=== PATIENT | female | born 1980 | race Caucasian/White ===

== ENCOUNTER 2023-06-06 13:17 | Outpatient (OUT) | payer OTHER, SELFPAY ==
--- NOTE | 2023-06-06 13:18 | MM_ITS ---
Patient: MEGGAN GUERRA Exam Date: 06/06/2023 : 1980 Gender:F Ordering : MRS. JUNIOR ZAMBRANO . Admission #: [id number] Family : DELIA DENG Order #: [id number] CLICK HERE TO VIEW EXAM RADIOLOGY REPORT PROCEDURE: MM TOMOSYNTHESIS SCREENING BI COMPARISON: [facility] MAMM SCREEN 3D LESLIE CAD, 05/25/2022. MG MAMM SCREEN LESLIE W CAD, 11/01/2020. MG MAMM LESLIE DIAG W CAD DIG, 04/22/2015. MAMMO LESLIE SCREEN, 06/18/2007. INDICATIONS: Screening mammogram Z01.419, Z12.31, Z78.9, Z68.41 Calculator Name NCI Breast Cancer Risk Assessment Tool 5 Year Breast Cancer Risk 1.30% Lifetime Breast Cancer Risk 14.40% Personal Breast Cancer No Personal Ovarian Cancer No Treatments None Family Cancers Aunt-maternal with breast cancer at age ~53; Grandmother-paternal with colon cancer at age ~65; Grandfather-paternal with prostate cancer at age ~70. LOCATION: [facility] BREAST COMPOSITION: Extremely dense, which lowers the sensitivity of mammography. FINDINGS: DIAGNOSTIC CATEGORY 2--BENIGN FINDING: RIGHT BREAST: No significant suspicious finding. Stable small benign nodule posterior lower-outer quadrant. No significant change has occurred. LEFT BREAST: No significant suspicious finding. No significant change has occurred. RECOMMENDATIONS: ROUTINE MAMMOGRAM AND CLINICAL EVALUATION IN 12 MONTHS. PLEASE NOTE: A NORMAL MAMMOGRAM DOES NOT EXCLUDE THE POSSIBILITY OF BREAST CANCER. A CLINICALLY SUSPICIOUS PALPABLE LUMP SHOULD BE BIOPSIED. Dictated by: Andres Wellington M.D. on 06/06/2023 at 16:37 Approved by: Andres Wellington M.D. on 06/06/2023 at 16:44
== END 2023-06-06 13:18 | disposition home or self-care (01) ==
LOC: MAMMO 13:17
PROVIDERS: PCP Family Medicine; Visit Provider Nurse Practitioner
DX: Z12.31 Encounter for screening mammogram for malignant neoplasm of breast (principal); Z80.3 Family history of malignant neoplasm of breast; Z80.0 Family history of malignant neoplasm of digestive organs; Z80.42 Family history of malignant neoplasm of prostate
CPT/HCPCS: 77063; 77067

== ENCOUNTER 2024-03-26 14:55 | Outpatient (OUT) | payer OTHER, SELFPAY ==
--- NOTE | 2024-03-26 | XR_ITS ---
The [address] [address] Patient Name: MEGGAN GUERRA MRN: [id number] date: 1980 Sex: F Assigned Patient Location: Current Patient Location: Accession/Order Number: [id number] Exam Date: 03/26/2024 15:01 Report Date: 03/26/2024 15:43 At the request of: EDITH SAUNDERS Procedure: XR foot LESLIE min 3V EXAMINATION: XR ankle LESLIE min 3V, XR foot LESLIE min 3V HISTORY: BILATERAL ANKLE PAIN bilateral foot pain COMPARISON: No relevant comparison available. FINDINGS: RIGHT FINDINGS: BONES: No acute fracture or dislocation. No significant joint space narrowing. Mild enthesopathic spurring at the Achilles insertion of the calcaneus SOFT TISSUES: Negative. No visible soft tissue swelling. OTHER: Negative. LEFT FINDINGS: BONES: No acute fracture or dislocation. No significant joint space narrowing. Mild enthesopathic spurring at the Achilles insertion of the calcaneus SOFT TISSUES: Negative. No visible soft tissue swelling. OTHER: Negative. XR/XR foot LESLIE min 3V IMPRESSION: RIGHT CONCLUSION: Mild calcaneal enthesopathy LEFT CONCLUSION: Mild calcaneal enthesopathy Electronically authenticated by: DELIA RODRIGUEZ Date: 03/26/2024 15:43
--- NOTE | 2024-03-26 | XR_ITS ---
The [address] [address] Patient Name: MEGGAN GUERRA MRN: [id number] date: 1980 Sex: F Assigned Patient Location: Current Patient Location: Accession/Order Number: [id number] Exam Date: 03/26/2024 15:01 Report Date: 03/26/2024 15:43 At the request of: EDITH SAUNDERS Procedure: XR ankle LESLIE min 3V EXAMINATION: XR ankle LESLIE min 3V, XR foot LESLIE min 3V HISTORY: BILATERAL ANKLE PAIN bilateral foot pain COMPARISON: No relevant comparison available. FINDINGS: RIGHT FINDINGS: BONES: No acute fracture or dislocation. No significant joint space narrowing. Mild enthesopathic spurring at the Achilles insertion of the calcaneus SOFT TISSUES: Negative. No visible soft tissue swelling. OTHER: Negative. LEFT FINDINGS: BONES: No acute fracture or dislocation. No significant joint space narrowing. Mild enthesopathic spurring at the Achilles insertion of the calcaneus SOFT TISSUES: Negative. No visible soft tissue swelling. OTHER: Negative. XR/XR ankle LESLIE min 3V IMPRESSION: RIGHT CONCLUSION: Mild calcaneal enthesopathy LEFT CONCLUSION: Mild calcaneal enthesopathy Electronically authenticated by: DELIA RODRIGUEZ Date: 03/26/2024 15:43
== END 2024-03-26 14:56 | disposition home or self-care (01) ==
LOC: EC 14:55
PROVIDERS: PCP Family Medicine; Visit Provider Physician Assistant
DX: M79.672 Pain in left foot (principal); M79.671 Pain in right foot; M25.571 Pain in right ankle and joints of right foot; M25.572 Pain in left ankle and joints of left foot; M77.31 Calcaneal spur, right foot; M77.32 Calcaneal spur, left foot
CPT/HCPCS: 73610; 73630

== ENCOUNTER 2025-04-13 12:44 | Outpatient (OUT) | payer OTHER, SELFPAY ==
--- OUTSIDE RECORDS SUMMARY | 2025-04-13 13:05 | XMS_ITS | CCD ---
Author Organization [facility] Care Team Providers Care Chinese Instructor Name Role Phone DO Delia Deng Primary Care Provider DO Delia Deng Attending Provider Luciana Carmen Unavailable Delai Deng Unavailable Reji Alcantara Unavailable DO Delia Deng Primary Care Provider DO Delia Deng Attending Provider [phone] KENYA, JUNIOR L Admitting Unavailable KENYA, JUNIOR Calvillo Attending Unavailable SOWMYA, DR LIN Primary Care Unavailable WESTFIELD, DR DELIA Lacy Consulting Unavailable KENYA, JUNIOR L Consulting Unavailable SOWMYA, DR LIN Admitting Unavailable SOWMYA, DR LIN Attending Unavailable SOWMYA, DR LIN Primary Care Unavailable SOWMYA, DR LIN Consulting Unavailable DELIA GALARZA Consulting Unavailable KENYA, JUNIOR L Admitting Unavailable KENYA, JUNIOR Calvillo Attending Unavailable SOWMYA, DR LIN Primary Care Unavailable HANS, DR MARIYA Fierro Consulting Unavailable KENYA, JUNIOR L Consulting Unavailable DO Delia Deng Primary Care Provider DO Delia Deng Attending Provider [phone] Delia Deng DO Primary Care Provider Delia Deng DO Unavailable [phone] DELIA DENG Primary Care Unavailable WAITE, JIHAD Referring Unavailable CHAD, JIHAChavo Referring Unavailable DELIA DENG Primary Care Unavailable CHAD, JIHAD Attending Unavailable DELIA DENG Primary Care Unavailable DO Delia Deng Primary Care Provider DO Delia Deng Attending Provider DO Delia Deng Primary Care Provider DO Delia Deng Attending Provider MD Reji Alcantara Attending Provider [phone] DO Delia Deng Primary Care Provider DO Delia Deng Attending Provider [phone] DO Delia Deng Primary Care Provider DO Delia Deng Attending Provider [phone] DAVID PRYOR Attending Unavailable DO Delia Deng Primary Care Provider [phone] DO Delia Deng Attending Provider [phone] Delia Deng Primary Care Unavailable Sowmya, Delia Admitting Unavailable Sowmya, Delia Attending Unavailable Sowmya, Delia Primary Care Unavailable Sowmya, Delia Admitting Unavailable Sowmya, Delia Attending Unavailable Sowmya, Delia Primary Care Unavailable Reji Alcantara Attending Unavailable Reji Alcantara Admitting Unavailable Girbrigido, Delia Attending Unavailable Sowmya, Delia Primary Care Unavailable Sowmya, Delia Admitting Unavailable Kenya, Junior L Primary Care Physician Kenya, TROUBLE SHOOTER Junior Calvillo Attending Unavailable Kenya, TROUBLE SHOOTER Junior L Attending Unavailable Kenya, TROUBLE SHOOTER Junior L Attending Unavailable Kenya, TROUBLE SHOOTER Junior L Admitting Unavailable Kenya, TROUBLE SHOOTER Junior L Attending Unavailable Kenya, TROUBLE SHOOTER Junior L Attending Unavailable Kenya, TROUBLE SHOOTER Junior L Attending Unavailable Kenya, TROUBLE SHOOTER Junior L Attending Unavailable Allergies Allergy Classification Reported Allergen(s) Allergy Type Date of Onset Reaction(s) Facility (20 sources) Amoxicillin / Clavulanate Drug Allergy rash [place] Other (20 sources) Azithromycin Drug Allergy 11-27-19 24 does not work for her [facility] (20 sources) codiene Propensity to adverse reactions vomiting [place] Other (7 sources) Amoxicillin / Clavulanate Drug Allergy 02-11-20 14 rash [facility] Repository (7 sources) Codeine Drug Allergy 02-11-20 14 vomiting [facility]ository (7 sources) Amoxicillin; Translations: [amoxicillin] Drug Allergy 11-27-19 [facility] (7 sources) Clavulanate; Translations: [clavulanic acid] Drug Allergy 11-27-19 [facility] (1 source) Azithromycin Drug Allergy 05-14-20 [facility] Repository (1 source) Codeine Drug Allergy 05-14-20 [facility] Repository (2 sources) No Known Medication Allergies; Translations: [No Known Medication Allergies] Propensity to adverse reactions (disorder) [facility] Repository Medications Current Medications Medication Drug Class(es) Dates Sig (Normalized) Sig (Original) 0.5 ML semaglutide 0.5 MG/ML Auto-Injector [Wegovy] (1 source) Start: 01-04-2022 Wegovy 0.25 MG/0.5ML 1 injector Subcutaneous Once a week for 30 day(s) BMI 40.42 Jan, Active 0.5 ML semaglutide 1 MG/ML Auto-Injector [Wegovy] (2 sources) inject 0.5 mg by subcutaneous injection every week Wegovy 0.5 MG/0.5ML 0.5 mg Subcutaneous Weekly Active ascorbic acid 250 mg oral tablet (16 sources) Vitamin C Start: 02-17-2024 take 1 tablet by mouth once daily Ascorbic Acid (Vitamin C) 250 mg tablet Active 250 MG PO Daily February 16, 2024 11:00pm Vitamin C Active azelastine hydrochloride 0.137 mg/actuat metered dose nasal spray (7 sources) Histamine-1 Receptor Antagonist Start: 12-07-2024 take 1 spray(s) nasal route twice daily as needed Azelastine 137 mcg (0.1 %) spray,non-aerosol Active 1 SPRAY INTRANASAL Twice daily as needed December 07, 2024 4:57pm administer into each nostril Start: 02-17-2024 End: 12-07-2024 take 1 spray(s) nasal route twice daily Azelastine 137 mcg (0.1 %) aerosol,spray Discontinued 1 SPRAY INTRANASAL Twice daily 90 February 16, 2024 11:00pm December 07, 2024 5:00pm administer into each nostril Start: 02-17-2024 take 1 spray(s) nasa l route twice daily Azelastine Active 1 SPRAY INTRANASAL Twice daily February 17, 2024 12:00am administer into each nostril cholecalciferol 0.05 mg oral capsule (10 sources) Vitamin D Start: 02-17-2024 take 1 capsule by mouth once daily Cholecalciferol (Vitamin D3) 50 mcg (2,000 unit) capsule Active 1 CAP PO Daily February 16, 2024 11:00pm FreeTextSi capsule Orally Once a day; Note: Source Status: Taking; Provider: Maricruz Mendoza ( ) Start: 02-17-2024 take 1 capsule by mo [facility] once daily Cholecalciferol (Vitamin D3) Active 1 CAP PO Daily February 17, 2024 12:00am FreeTextSi capsule Orally Once a day; Note: Source Status: Taking; Provider: Maricruz Mendoza ( ) take 1 capsule by [facility] every twenty-four hours Vitamin D3 50 MCG (2000 UT) 1 capsule Orally Once a day Active docusate sodium 100 mg oral capsule (6 sources) Start: 02-17-2024 take 1 capsule by mouth once daily Docusate Sodium (Dulcolax Stool Softener (Dss)) 100 mg capsule Active 100 MG PO Daily February 16, 2024 11:00pm hydroCHLOROthiazide 25 mg / losartan potassium 100 mg oral tablet (20 sources) Thiazide Diuretic, Angiotensin 2 Receptor Mehrdad Start: 07-16-2024 End: 10-14-2024 Losartan-[place] chlorothiazide 100-25 mg tablet Active 0 .ROUTE .COMPLEX October 14, 2024 7:49am TAKE 1 TABLET DAILY Start: 02-17-2024 End: 07-16-2024 take 1 tablet by mouth once daily Losartan-Hydrochlorothiazide 100-25 mg tablet Discontinued 1 TAB PO Daily February 16, 2024 11:00pm July 16, 2024 7:38am FreeTextSig: TAKE 1 TABLET BY MOUTH EVERY DAY; Note: Source Status: Taking; Refills: 3; Provider: Sowmya Martins Start: 08-15-2022 take 1 tablet by bryant once daily losartan-hydroCHLOROthiazide (HYZAAR) 10 0-25 mg per tablet Take 1 tablet by mouth once daily. 0 12/17/2022 Active Comment on above: Take 1 tablet by bryant th once daily. hydrocortisone acetate 25 mg rectal suppository (11 sources) Corticosteroid Start: 08-31-2024 End: 12-07-2024 Hydrocortisone Acetate (Anusol-Hc) 25 mg suppository Active 25 MG MI Twice daily as needed December 07, 2024 4:58pm unwrap and insert 1 suppository per rectum two times a day Start: 10-30-2022 Anusol-HC 25 M G unwrap and _insert 1 suppository per rectum Rectal bid prn Oct, Active Immune Support (4 sources) Immune Support A ctive Lactobacillus Combination No.4 (Probiotic) 3 billion cell capsule (6 sources) Start: 02-17-2024 take 3 capsules by mouth once daily Lactobacillus Combination No.4 (Probiotic) 3 billion cell capsule Active 3000 MMU CELLS PO Daily February 16, 2024 11:00pm administer with a meal Start: 02-17-2024 take 3 capsules by m [facility] once daily Lactobacillus Combination No.4 (Probiotic) 3 billion cell capsule Active 3000 MMU CELLS PO Daily February 17, 2024 12:00am administer with a meal losartan potassium 50 mg oral tablet (12 sources) Angiotensin 2 Receptor Mehrdad take 2 tablets by mouth every twenty-four hours Losartan Potassium 50 MG 2 tablet Orally Once a day Active Losartan Potassi um 50 MG TAKE 1/2 TABLET BY MOUTH EVERY DAY FOR 30 DAYS for 30 Active take 1 tablet by bryant th every twenty-four hours Losartan Potassium 50 MG 1 tablet Orally Once a day Active Multi For Her (20 sources) Multi For Her Or ally Active Multivitamin (Daily Multi-Vitamin) tablet (6 sources) Start: 02-17-2024 take 1 tablet by mouth once daily Multivitamin (Daily Multi-Vitamin) tablet Active 1 TAB PO Daily February 16, 2024 11:00pm Start: 02-17-2024 take 1 tablet by bryant th once daily Multivitamin (Daily Multi-Vitamin) tablet Active 1 TAB PO Daily February 17, 2024 12:00am [place] 3 (4 sources) [place] 3 Active [place]-3 Fatty Acids (5 sources) Start: 02-17-2024 take 1000 mg by mouth once daily [place]-3 Fatty Acids Active 1000 MG PO Daily February 17, 2024 12:00am [place]-3 Fatty Acids 1,000 mg capsule (1 source) Start: 02-17-2024 take 1 capsule by mouth once daily [place]-3 Fatty Acids 1,000 mg capsule Active 1000 MG PO Daily February 16, 2024 11:00pm Probiotic (20 sources) Probiotic Orally Active psyllium 3400 mg powder for oral suspension (8 sources) Start: 08-31-2024 End: 12-07-2024 Psyllium Husk (Aspartame) (Metamucil Sugar-Free (Aspart)) 3.4 gram/5.8 gram powder Active EACH PO as needed December 07, 2024 4:58pm Metamucil Not-Ta nilsa Metamucil Active rosuvastatin calcium 10 mg oral tablet (20 sources) HMG-CoA Reductase Inhibitor Start: 08-10-2024 End: 08-10-2024 take 1 tablet by mouth once daily Rosuvastatin 10 mg tablet Active 10 MG PO Daily August 10, 2024 11:57am Rosuvastatin Pa cium 10 mg TAKE 1 TABLET DAILY Active Comment on above: Rosuvastatin Calcium 10 mg TAKE 1 TABLET DAILY Active 0.25 mg, 0.5 mg dose 1.5 ml semaglutide 1.34 mg/ml pen injector (1 source) Start: 10-24-2021 Ozempic (0.25 or 0.5 MG/DOSE) 2 MG/1.5ML 0.25 mg for one month and then increase to 0.5 mg dose Subcutaneous weekly for 30 days Oct, Active Semaglutide (4 sources) Start: 05-14-2024 Semaglutide Active SUBCUT May 13, 2024 11:00pm Start: 05-14-2024 Semaglutide Ac tive SUBCUT May 14, 2024 12:00am sertraline 25 mg oral tablet (20 sources) Serotonin Reuptake Inhibitor Start: 05-14-2024 take 4 tablets by mouth once daily Sertraline (Zoloft) 25 mg tablet Active 25 MG PO Daily May 14, 2024 9:58am *in addition to the 100 MG tablets daily Start: 05-14-2024 End: 05-14-2024 take 1 tablet by mouth once daily Sertraline (Zoloft) 25 mg tablet Discontinued 25 MG PO Daily May 13, 2024 11:00pm May 14, 2024 9:59am Start: 02-17-2024 End: 03-05-2024 take 1 tablet by mouth once daily Sertraline 100 mg tablet Discontinued 100 MG PO Daily February 17, 2024 4:17pm March 05, 2024 12:15pm Start: 02-17-2024 End: 02-17-2024 take 1 tablet by mouth once daily Sertraline 25 mg tablet Discontinued 25 MG PO February 16, 2024 11:00pm February 17, 2024 4:16pm TAKE 1 TABLET ONCE DAILY IN ADDITION TO THE 100 MG; Note: Source Status: TakingHoldover supplies while pt waits for mail order to arrive; Provider: Sowmya Martins Start: 11-24-2022 sertraline (ZO LOFT) 100 mg tablet Start: 10-27-2022 sertraline (ZO LOFT) 25 mg tablet Sertraline HCl 2 5 mg TAKE 1 TABLET ONCE DAILY IN ADDITION TO THE 100 MG Holdover supplies while pt waits for mail order to arrive Active Sertraline HCl 1 00 mg TAKE 1 TABLET DAILY IN ADDITION TO THE 25 MG Holdover supplies while pt waits for mail order to arrive Active Sertraline HCl 2 5 mg TAKE 1 TABLET ONCE DAILY IN ADDITION TO THE 100 MG for 90 days Active Sertraline HCl 2 5 mg TAKE 1 TABLET ONCE DAILY IN ADDITION TO THE 100 MG Active Sertraline HCl 1 00 mg TAKE 1 TABLET DAILY IN ADDITION TO THE 25 MG Active Stool Softener (14 sources) Stool Softener A ctive tiZANidine 4 mg oral tablet (20 sources) Central alpha-2 Adrenergic Agonist Start: 02-17-2024 Tizanidine (Zanaflex) 4 mg tablet Active 4 MG PO as needed February 16, 2024 11:00pm FreeTextSi tablet Orally q8-12 hrs prn; Note: Source Status: Takingprn; Refills: 1; Provider: Sowmya Martins Start: 02-16-2020 Zanaflex 4 MG 1 tablet Orally q8-12 hrs prn for 90 days prn Feb, Active Start: 02-16-2020 tiZANidine (ZA NAFLEX) 4 mg tablet Take by mouth. 0 02/16/2020 Active Comment on above: Take by mouth. ubidecarenone 100 mg oral capsule (1 source) Start: 02-03-2025 Coenzyme Q10 (Co Q-10) 100 mg capsule Active 100 MG PO Daily December 07, 2024 12:00am Vitamin D3 (6 sources) Vitamin D3 Activ e Zinc (8 sources) take 1 tablet by mouth once daily Zinc 30 MG 1 tablet Orally Once a day Active Zinc Active zinc gluconate 30 mg oral tablet (8 sources) Start: 02-17-2024 take 1 tablet by mouth once daily Zinc Gluconate 30 mg tablet Active 1 TAB PO Daily February 16, 2024 11:00pm FreeTextSi tablet Orally Once a day; Note: Source Status: Taking; Provider: Maricruz Mendoza ( ) take 1 tablet by bryant th every twenty-four hours Zinc 30 MG 1 tablet Orally Once a day Active Completed/Discontinued Medications Medication Drug Class(es) Dates Sig (Normalized) Sig (Original) ALPRAZolam 0.5 mg oral tablet (20 sources) Benzodiazepine Start: 02-17-2024 End: 05-14-2024 Alprazolam (Xanax) 0.5 mg tablet Discontinued 0.5 MG PO .COMPLEX May 14, 2024 9:55am May 14, 2024 9:56am 0.5 mg orally q8-12 hrs prn Start: 01-26-2016 Xanax 0.5 MG 1 tablet Orally q8-12 hrs prn Jan, Active Start: 01-26-2016 ALPRAZolam (XA NAX) 0.5 mg tablet Take by mouth. 0 01/26/2016 Active ALPRAZolam (XANA X) 0.25 mg tablet Take 0.25 mg by mouth. 0 Active Comment on above: Take 0.25 mg by mout h. Take by mouth. 24 hr buPROPion hydrochloride 150 mg extended release oral tablet (6 sources) Aminoketone Start: 02-17-20 End: 05-14-20 take 1 tablet by mouth once daily in the morning Bupropion Hcl (Wellbutrin Xl) 150 mg tablet extended release 24 hr Discontinued 150 MG PO Every morning 90 February 16, 2024 11:00pm May 14, 2024 9:36am cefdinir 300 mg oral capsule (8 sources) Cephalosporin Antibacterial Start: 05-18-20 End: 08-31-20 take 2 capsules by mouth once daily at mealtime Cefdinir 300 mg capsule Discontinued 600 MG PO Daily 23 08May 18, 2024 3:09pm August 31, 2024 3:43pm take 2 (300 mg) capsules orally qd with food Start: 05-18-2024 End: 08-31-2024 take 2 capsules by mouth once daily at mealtime Cefdinir Discontinued 600 MG PO Daily 23 08May 18, 2024 4:09pm August 31, 2024 4:43pm take 2 (300 mg) capsules orally qd with food Start: 11-18-2023 take 2 capsules by m outh once daily at mealtime Cefdinir 300 MG 2 capsules Orally qd with food for 10 days Nov, Active cholecalciferol, vitamin D3, (VITAMIN D3 ORAL) (1 source) take 1 drop(s) by mouth once daily cholecalciferol, vitamin D3, (VITAMIN D3 ORAL) Take 1 Drop by mouth once daily. 0 Active Comment on above: Take 1 Drop by mouth once daily. fexofenadine hydrochloride 180 mg oral tablet (20 sources) Histamine-1 Receptor Antagonist Start: take 1 tablet by mouth every twenty-four hours Fexofenadine HCl 180 MG 1 tablet as needed Orally Once a day prn Apr, Not-Taking/PRN gabapentin 100 mg oral capsule (20 sources) Anti-epileptic Agent Start: take 1 capsule by mouth every twenty-four hours Gabapentin 100 MG 1 capsule Orally Once a day prn Jul, Not-Taking/PRN Start: 07-14-2018 gabapentin (NE URONTIN) 100 mg capsule Take by mouth q 24 HR. 0 07/14/2018 Active Start: 07-14-2018 take 1 capsule by [facility] every eight hours Gabapentin 100 MG 1 capsule Orally tid for 90 days prn Jul, Active Comment on above: Take by mouth q 24 H R. methylPREDNISolone (20 sources) Corticosteroid Start: SOLU-MEDROL 41 - 125 mg Feb, 125 mg 24 hr phentermine 7.5 mg / topiramate 46 mg extended release oral capsule (20 sources) Sympathomimetic Amine Anorectic Start: End: take 1 capsule by mouth once daily Phentermine-Topira mate (Qsymia) 7.5-46 mg capsule, ER multiphase 24 hr Discontinued 1 CAP PO Daily March 30, 2024 11:00pm May 14, 2024 9:36am Start: 11-27-2023 take 1 capsule by mo uth every twenty-four hours Qsymia 7.5-46 MG 1 capsule Orally Once a day for 30 days Nov, Active Start: 09-25-2023 take 1 capsule by mo uth every twenty-four hours Qsymia 7.5-46 MG 1 capsule Orally Once a day for 30 days Sep, Active Start: 06-20-2023 take 1 capsule by mo uth every twenty-four hours Qsymia 7.5-46 MG 1 capsule Orally Once a day for 30 days Jun, Active Start: 03-25-2023 take 1 capsule by mo uth every twenty-four hours Qsymia 7.5-46 MG 1 capsule Orally Once a day for 30 days March, Active Start: 03-25-2023 take 1 capsule by mo uth every twenty-four hours Qsymia 3.75-23 MG 1 capsule Orally Once a day for 14 days March, Active Start: 09-26-2022 take 1 capsule by mo uth every twenty-four hours Qsymia 11.25-69 MG 1 capsule Orally Once a day for 30 days Sep, Not-Taking Start: 08-14-2022 take 1 capsule by mo uth every twenty-four hours Qsymia 7.5-46 MG 1 capsule Orally Once a day for 30 days Aug, Active Start: 04-05-2022 take 1 capsule by mo uth every twenty-four hours Qsymia 7.5-46 MG 1 capsule Orally Once a day for 30 days Apr, Active Start: 04-05-2022 take 1 capsule by mo uth every twenty-four hours Qsymia 3.75-23 MG 1 capsule Orally Once a day Apr, Active Triamcinolone (20 sources) Corticosteroid Start: 07-21-2012 KENALOG - 10 m g Jul, 1.5 cc Turmeric extract (6 sources) Start: 02-17-2024 End: 12-07-2024 Turmeric 400 mg capsule Discontinued MG PO February 16, 2024 11:00pm December 07, 2024 4:59pm Start: 02-17-2024 Turmeric Activ e MG PO February 17, 2024 12:00am ubidecarenone 20 mg/ml / vitamin e 0.2 unt/ml oral solution (1 source) take 100 mg by mouth once daily coenzyme Q-10 double strength 100 mg/5 ml oral liquid Take 100 mg by mouth once daily. 0 Active Comment on above: Take 100 mg by mouth once daily. Zinc Sulfate (1 source) take 15 mg by mouth once daily zinc sulfate (ZINC-15 ORAL) Take 15 mg by mouth once daily. 0 Active Comment on above: Take 15 mg by mouth once daily. Problems Active Problems Problem Classification Problem Date Documented Da te Episodic/Chronic Abdominal pain (4 sources) Pelvic and perineal pain; Translations: [PELVIC AND PERINEAL PAIN] Onset: 10-31-2022 Episodic Anxiety disorders (20 sources) Anxiety; Translations: [Anxiety disorder, unspecified] Onset: 09-18-2021 Resolved: 07-16-2022 Chronic Diabetes mellitus without complication (20 sources) Impaired fasting glycemia; Translations: [Impaired fasting glucose] Onset: 10-24-2021 Resolved: 06-20-2022 Episodic Disorders of lipid metabolism (20 sources) Hyperlipidemia; Translations: [Hyperlipidemia, unspecified] Onset: 09-18-2021 Resolved: 07-16-2022 Chronic Essential hypertension (20 sources) Hypertensive disorder; Translations: [Essential (primary) hypertension] Onset: 04-05-2022 Resolved: 06-20-2022 Chronic Hemorrhoids (13 sources) Unspecified hemorrhoids; Translations: [Hemorrhoids] Episodic Menstrual disorders (20 sources) Menorrhagia; Translations: [Excessive and frequent menstruation with regular cycle] Chronic Other aftercare (7 sources) Other usp (current) drug therapy; Translations: [Long-term (current) use of other medications] Onset: 04-09-2022 Resolved: 04-09-2022 Episodic Other aftercare (6 sources) Long-term current use of drug therapy; Translations: [Other intermediate teacher (current) drug therapy] 02-17-2024 Episodic Other circulatory disease (20 sources) Elevated blood-pressure reading without diagnosis of hypertension; Translations: [Elevated blood-pressure reading, without diagnosis of hypertension] Episodic Other gastrointestinal disorders (6 sources) Constipation; Translations: [Constipation, unspecified] 02-17-2024 Episodic Other non-traumatic joint disorders (1 source) Pain in wrist 02-15-2025 Episodic Other nutritional; endocrine; and metabolic disorders (20 sources) Metabolic syndrome X; Translations: [Metabolic syndrome] Chronic Other nutritional; endocrine; and metabolic disorders (20 sources) Obese class II; Translations: [Body mass index (BMI) 39.0-39.9, adult] Chronic Other nutritional; endocrine; and metabolic disorders (20 sources) Body mass index 40+ - severely obese; Translations: [Body mass index (BMI) 40.0-44.9, adult] Chronic Other nutritional; endocrine; and metabolic disorders (20 sources) Obesity; Translations: [Obesity, unspecified] 02-17-2024 Chronic Other nutritional; endocrine; and metabolic disorders (9 sources) Obesity, unspecified; Translations: [Obesity, unspecified] Onset: 10-04-2021 Resolved: 04-26-2022 Chronic Other nutritional; endocrine; and metabolic disorders (2 sources) Body mass index (BMI) 39.0-39.9, adult Onset: 10-04-2021 Resolved: 04-26-2022 Chronic Other nutritional; endocrine; and metabolic disorders (12 sources) Body mass index (BMI) 40.0-44.9, adult Onset: 10-24-2021 Resolved: 06-20-2022 Chronic Other nutritional; endocrine; and metabolic disorders (10 sources) Metabolic syndrome Onset: 10-24-2021 Resolved: 06-20-2022 Chronic Other nutritional; endocrine; and metabolic disorders (3 sources) Body mass index 30+ - obesity; Translations: [Obesity, unspecified] Onset: 12-26-2022 Chronic Other nutritional; endocrine; and metabolic disorders (2 sources) Abnormal weight loss Onset: 09-18-2021 Resolved: 09-18-2021 Episodic Other nutritional; endocrine; and metabolic disorders (4 sources) Abnormal weight gain Onset: 04-09-2022 Resolved: 04-09-2022 Episodic Other screening for suspected conditions (not mental disorders or infectious disease) (20 sources) Encounter for screening mammogram for malignant neoplasm of breast; Translations: [C-reactive protein abnormal] Onset: 06-04-2022 Episodic Other upper respiratory disease (20 sources) Allergic rhinitis; Translations: [Allergic rhinitis, unspecified] 02-17-2024 Chronic Other upper respiratory disease (3 sources) Allergic rhinitis, unspecified; Translations: [Allergic rhinitis, cause unspecified] 02-17-2024 Chronic Other upper respiratory disease (1 source) Epistaxis Episodic Other upper respiratory infections (1 source) Acute sinusitis, unspecified Episodic Ovarian cyst (1 source) Other ovarian cyst, right side; Translations: [OTHER OVARIAN CYST RIGHT SIDE] Onset: 11-03-2022 Episodic Residual codes; unclassified (20 sources) Obstructive sleep apnea syndrome; Translations: [Obstructive sleep apnea (adult) (pediatric)] Chronic Residual codes; unclassified (10 sources) Obstructive sleep apnea (adult) (pediatric) Onset: 10-24-2021 Resolved: 06-20-2022 Chronic Spondylosis; intervertebral disc disorders; other back problems (3 sources) Cervicalgia Onset: 09-18-2021 Resolved: 09-18-2021 Episodic Unclassified (1 source) Cancer cervix screening status 02-15-2025 Unclassified (1 source) Non-smoker 03-26-2023 Unclassified (3 sources) Patient encounter status 05-27-2023 Past or Other Problems Problem Classification Problem Date Documented Da te Episodic/Chronic Administrative/social admission (1 source) Dietary counseling and surveillance; Translations: [Dietary counseling and surveillance] Onset: 11-27-2023 Episodic Other aftercare (9 sources) Encounter for therapeutic drug level monitoring; Translations: [Encounter for therapeutic drug level monitoring] Onset: 05-17-2022 Resolved: 06-20-2022 Episodic Other circulatory disease (1 source) Elevated blood-pressure reading, without diagnosis of hypertension Onset: 10-24-2021 Resolved: 10-24-2021 Episodic Other connective tissue disease (1 source) Pain in leg, unspecified Onset: 05-25-2022 Resolved: 05-25-2022 Episodic Other non-traumatic joint disorders (6 sources) Pain in right knee; Translations: [PAIN IN RIGHT KNEE] Onset: 05-25-2022 Resolved: 05-25-2022 Episodic Residual codes; unclassified (1 source) Family history of malignant neoplasm of breast; Translations: [FAMILY HX MALIG NEOPLASM OF BREAST] Onset: 06-04-2022 Episodic Residual codes; unclassified (1 source) Family history of malignant neoplasm of digestive organs; Translations: [FAM HX MALIG NEOPLASM DIGESTIV ORGN] Onset: 06-04-2022 Episodic Residual codes; unclassified (1 source) Family history of malignant neoplasm of prostate; Translations: [FAMILY HX MALIG NEOPLASM PROSTATE] Onset: 06-04-2022 Episodic Viral infection (1 source) COVID-19 Onset: 04-09-2022 Resolved: 04-09-2022 Results Test Name Value Interpretation Reference Range Facility Ambulatory Visit Summaryon 0 03-24-2025 Ambulatory Visit Summary Ambulatory Visit Summary BONNIE BEAVERS :1980 Visit Date:03/24/2025 Ambulatory Visit Instructions Your Diagnosis Encounter for weight management BMI 40.0-44.9, adult Non-smoker Breast cancer screening by mammogram Cervical cancer screening Well woman exam Wrist pain Your Care Team Attending Physician - Junior De La Fuente Primary Care Physician - Junior De La Fuente This Is Your Medications List albuterol (Albuterol (Eqv-ProAir HFA) 90 mcg/inh inhalation aerosol) bacillus coagulans-inulin (Probiotic Formula (Bacillus Coagulans)) fluticasone-salmetero l (fluticasone-salmeter ol 55 mcg-14 mcg/inh inhalation powder) hydrochlorothiazide-l osartan (hydrochlorothiazide- losartan 12.5 mg-100 mg oral tablet) meloxicam (meloxicam 15 mg Tab) phentermine (phentermine 37.5 mg Tab) rosuvastatin (rosuvastatin 10 mg Tab) sertraline (Zoloft 100 mg Tab) sertraline (Zoloft 25 mg Tab) tizanidine (Zanaflex 4 mg Tab) Procedures Performed Tonsillectomy (2011), Breast lumpectomy (11/04/2005). Discharge Vitals Heart Rate (Peripheral) 80 Respiratory Rate 16 Blood Pressure 124/80 Height 172.0 cm Height 68 in Weight 121.8 kg Weight 268.523 lb BMI 41.17 What to do next Scheduled Follow-Up Appointments Saturday 9:40 AM EDT With: Junior De La Fuente Where: [address] [phone]- Medications What How Much When Why Instructions Unchanged albuterol (Albuterol (Eqv-ProAir HFA) 90 mcg/ inh inhalation aerosol) See instructions INHALE 2 PUFFS BY MOUTH EVERY 6 HOURS Unchanged bacillus coagulans-inulin (Probiotic Formula (Bacillus Coagulans)) 1 Capsules By Mouth Every day Unchanged fluticasone-salmetero l (fluticasone-salmeter ol 55 mcg-14 mcg/ inh inhalation powder) 1 Inhalation Inhalation 2 times a day Unchanged hydrochlorothiazide-l osartan (hydrochlorothiazide- losartan 12.5 mg-100 mg oral tablet) 1 Tablets By Mouth Every day Unchanged meloxicam (meloxicam 15 mg Tab) 1 Tablets By Mouth Every day Well woman exam Breast cancer screening by mammogram Cervical cancer screening Wrist pain BMI 40.0-44.9, adult Non-smoker Unchanged phentermine (phentermine 37.5 mg Tab) 1 Tablets By Mouth Every day Well woman exam Breast cancer screening by mammogram Cervical cancer screening Wrist pain BMI 40.0-44.9, adult Non-smoker Unchanged rosuvastatin (rosuvastatin 10 mg Tab) 1 Tablets By Mouth Every day Unchanged sertraline (Zoloft 100 mg Tab) 1 Tablets By Mouth Every day Unchanged sertraline (Zoloft 25 mg Tab) 1 Tablets By Mouth Every day Unchanged tizanidine (Zanaflex 4 mg Tab) 1 Tablets As needed for Spasm Allergies No Known Medication Allergies Problems Ongoing - Any problem that you are currently receiving treatment for. BMI 39.0-39.9,adult Breast cancer screening by mammogram Cervical cancer screening Encounter for weight management Morbid obesity with BMI of 40.0-44.9, adult Non-smoker Well woman exam Wrist pain Patient Survey You may receive a survey via text or e-mail asking about your office visit. Please share your experience with us by completing your survey. We appreciate your feedback and thank you for choosing us for your care. Normal [facility] Medicine Office/Clini c Noteon 03-24-2025 Family Medicine Office/Clinic Note Family Medicine Office/Clinic Note HPI Staff Bonnie is a 44 year old female presenting for 1 month follow up Weight management: Started Phentermine Sleeping well:Yes, 6-8 hours Chest pain:No Tremors:No Headaches:No Heart fluttering:No Blurred Vision:No Beginning weight: 267.64 Previous weight: 268 Today's weight: Questions/Concerns: pt is only taking a half tablet of Adipex-P. she did take the Topamax and that made her feel very light headed and dizzy History of Present Illness pt presents today for weight management Review of Systems PHQ Score Initial Depression Screen Score: 0 SCORE Physical Exam Vitals & Measurements HR: 80(Peripheral) RR: 16 BP: 124/80 SpO2: 98% HT: 68 in HT: 172.0 cm WT: 268.523 lb WT: 121.8 kg BMI: 41.17 General: alert, no acute distress ENMT: oral mucosa moist, no pharyngeal erythema or exudate Cardiovascular: regular rate and rhythm, normal peripheral perfusion Respiratory: Lungs CTA, respirations non labored Extremities: no deformity, no trauma Neurological: oriented x 4, LOC appropriate for age, CN II-XII intact, motor strength equal & normal bilaterally, speech normal Assessment/Plan 1. Encounter for weight management (Z76.89: Persons encountering health services in other specified circumstances) pt presents today for weight management. started adipex and topamax at last visit. up one pound. is only taking 1/2 tab and is not taking Topamax. she will increase to full tab. RTC 1 month. she was also provided self assessment for ADHD and binge eating disorder. 2. BMI 40.0-44.9, adult (Z68.41: Body mass index [BMI] 40.0-44.9, adult) BMI education given Ordered: phentermine, 37.5 mg = 1 tab(s), Oral, Daily, # 30 tab(s), Refills(s) 0, Pharmacy: [facility] #[id number], 172, cm, 03/24/25 17:36:00 EDT, Height/Length Dosing, 121.8, kg, 03/24/25 17:36:00 EDT, Weight Dosing phentermine, 37.5 mg = 1 tab(s), Oral, Daily, # 30 tab(s), Refills(s) 0, Pharmacy: [facility] #[id number], 172, cm, 02/15/25 13:09:00 EDT, Height/Length Dosing, 121.4, kg, 02/15/25 13:09:00 EDT, Weight Dosing topiramate, 50 mg = 1 tab(s), Oral, Daily, # 90 tab(s), Refills(s) 0, [id number], cm, 02/15/25 13:09:00 EDT, Height/Length Dosing, 121.4, kg, 02/15/25 13:09:00 EDT, Weight Dosing 3. Non-smoker (Z78.9: Other specified health status) continue not smoking Ordered: phentermine, 37.5 mg = 1 tab(s), Oral, Daily, # 30 tab(s), Refills(s) 0, [id number] 172, cm, 03/24/25 17:36:00 EDT, Height/Length Dosing, 121.8, kg, 03/24/25 17:36:00 EDT, Weight Dosing phentermine, 37.5 mg = 1 tab(s), Oral, Daily, # 30 tab(s), Refills(s) 0, [id number], 172, cm, 02/15/25 13:09:00 EDT, Height/Length Dosing, 121.4, kg, 02/15/25 13:09:00 EDT, Weight Dosing topiramate, 50 mg = 1 tab(s), Oral, Daily, # 90 tab(s), Refills(s) 0, [id number] 172, cm, 02/15/25 13:09:00 EDT, Height/Length Dosing, 121.4, kg, 02/15/25 13:09:00 EDT, Weight Dosing Follow-up No qualifying data available Problem List/Past Medical History Ongoing BMI 39.0-39.9,adult Breast cancer screening by mammogram Cervical cancer screening Encounter for weight management Morbid obesity with BMI of 40.0-44.9, adult Non-smoker Well woman exam Wrist pain Historical No qualifying data Procedure/Surgical History Tonsillectomy (2011), Breast lumpectomy (11/04/2005). Medications Albuterol (Eqv-ProAir HFA) 90 mcg/inh inhalation aerosol, See Instructions fluticasone-salmetero l 55 mcg-14 mcg/inh inhalation powder, 1 inh, Inhalation, BID hydrochlorothiazide-l osartan 12.5 mg-100 mg oral tablet, 1 tab(s), Oral, Daily meloxicam 15 mg Tab, 15 mg= 1 tab(s), Oral, Daily phentermine 37.5 mg Tab, 37.5 mg= 1 tab(s), Oral, Daily Probiotic Formula (Bacillus Coagulans), 1 cap(s), Oral, Daily rosuvastatin 10 mg Tab, 10 mg= 1 tab(s), Oral, Daily Zanaflex 4 mg Tab, 4 mg= 1 tab(s), PRN Zoloft 100 mg Tab, 100 mg= 1 tab(s), Oral, Daily Zoloft 25 mg Tab, 25 mg= 1 tab(s), Oral, Daily Allergies No Known Medication Allergies Social History Alcohol Never., 09/20/2024 Substance Abuse Never., 09/20/2024 Tobacco Never (less than 100 in lifetime) Tobacco Use:., 09/20/2024 Family History Acute myocardial infarction: Father. Hyperlipidemia: Father. Hypertension: Mother. Primary malignant neoplasm of colon: Grandparent. Normal [facility] Comment on above: Result Comment: Elec tronically Signed By: Junior De La Fuente\.br\Date and Time Signed: 03/24/25 18:00 EDT Reminderson 02-23-2025 Reminders Reminders From: Junior De La Fuente To: B - Clinical; Sent: 02/23/2025 09:29:53 EDT Show up: 02/23/2025 09:30:00 EDT Subject: Ambulatory Reminder Due Date/Time: 02/24/2025 09:29:00 EDT pap was negative Results: Date Result Name Value Ref Range 02/15/2025 13:18 HPV Aptima Negative (Negative - ) 02/15/2025 13:18 PAP Note pt notified Normal [facility] PAP [id number] 02-19-2025 Cytology report Cyto stain Doc (Cvx/Vag) Note Invalid Interpretation Code [facility] Comment on above: Result Comment: TEST S RESULT FLAG UNITS REF RANGE LAB Clinician Provided Cytology Information Source.............Endocervix No. of containers..01 ThinPrep Vial DIAGNOSIS: 01 NEGATIVE FOR INTRAEPITHELIAL LESION OR MALIGNANCY. Specimen adequacy: 01 Satisfactory for evaluation. Endocervical and/or squamous metaplastic cells (endocervical component) are present. Areas of partially obscuring inflammatory exudate are present. Performed by: 01 Guilherme Dumont, Fashion Show Director ([facility]) . 01 Note: Note 02 The Pap smear is a screening test designed to aid in the detection of premalignant and malignant conditions of the uterine cervix. It is not a diagnostic procedure and should not be used as the sole means of detecting cervical cancer. Both false-positive and false-negative reports do occur. Test Methodology: Note 02 This liquid based ThinPrep(R) pap test was screened with the use of an image guided system. HPV Genotype Reflex Note 01 Criteria not met, HPV Genotype not performed. FLAG LEGEND: L-Low Normal,H-High Normal,LL-Alert Low,HH-Alert High <-Panic Low,>-Panic High,A-Abnormal,AA-Critical Abnormal Performed at: 01 [facility] [address] [place] [address] Maria L Judd MD, 02 [facility] [address] [address] Mercedes Cullen MD, Performed By: #### 1 [id number] #### [facility] [address] [place] [id number] HPV 16+18+31+33+35+39+45+51 +52+56+58+59+66+68 DNA Probe+sig amp Ql (Cvx) Negative Invalid Interpretation Code Negative [facility] Comment on above: Result Comment: This nucleic acid amplification test detects fourteen high-risk HPV types (16,18,31,33,35,39,45,51,52,56,58,59,66,68) without differentiation. Performed at: [facility] [address] [place], [place] [id number] MD Dutch Lisa Performed at: = [facility] [address] [place], [place] [id number] MD Subhash Long Performed By: #### 1 [id number] #### [facility] [address] [place] [address] Ambulatory Visit Summaryon 0 02-15-2025 Ambulatory Visit Summary Ambulatory Visit Summary BONNIE BEAVERS :1980 Visit Date:02/15/2025 Ambulatory Visit Instructions Your Diagnosis Well woman exam Breast cancer screening by mammogram Cervical cancer screening Wrist pain BMI 40.0-44.9, adult Non-smoker Tests Performed [place] Mamm Screen w/CAD if perf and 3D Brody -- Results Pending -- Please visit your patient portal for your results or contact your primary care physician. Your Care Team Attending Physician - Junior De La Fuente Primary Care Physician - Junior De La Fuente This Is Your Medications List albuterol (Albuterol (Eqv-ProAir HFA) 90 mcg/inh inhalation aerosol) bacillus coagulans-inulin (Probiotic Formula (Bacillus Coagulans)) fluticasone-salmetero l (fluticasone-salmeter ol 55 mcg-14 mcg/inh inhalation powder) hydrochlorothiazide-l osartan (hydrochlorothiazide- losartan 12.5 mg-100 mg oral tablet) meloxicam (meloxicam 15 mg Tab) phentermine (phentermine 37.5 mg Tab) rosuvastatin (rosuvastatin 10 mg Tab) sertraline (Zoloft 100 mg Tab) sertraline (Zoloft 25 mg Tab) tizanidine (Zanaflex 4 mg Tab) topiramate (Topamax 50 mg Tab) Procedures Performed Tonsillectomy (2011), Breast lumpectomy (11/04/2005). Discharge Vitals Heart Rate (Peripheral) 78 Respiratory Rate 18 Blood Pressure 130/74 Height 172.0 cm Height 68 in Weight 121.40 kg Weight 267.641 lb BMI 41.04 What to do next Scheduled Follow-Up Appointments Saturday. 2024 5:20 PM EDT With: Junior De La Fuente Where: [place] [id number]- Medications What How Much When Why Instructions New fluticasone-salmetero l (fluticasone-salmeter ol 55 mcg-14 mcg/ inh inhalation powder) 1 Inhalation Inhalation 2 times a day New meloxicam (meloxicam 15 mg Tab) 1 Tablets By Mouth Every day Well woman exam Breast cancer screening by mammogram Cervical cancer screening Wrist pain BMI 40.0-44.9, adult Non-smoker Pickup at [facility]/pharmacy #[id number] New phentermine (phentermine 37.5 mg Tab) 1 Tablets By Mouth Every day Well woman exam Breast cancer screening by mammogram Cervical cancer screening Wrist pain BMI 40.0-44.9, adult Non-smoker Pickup at [facility]/pharmacy #6177 New topiramate (Topamax 50 mg Tab) 1 Tablets By Mouth Every day Well woman exam Breast cancer screening by mammogram Cervical cancer screening Wrist pain BMI 40.0-44.9, adult Non-smoker Pickup at [facility]/pharmacy #6177 Unchanged albuterol (Albuterol (Eqv-ProAir HFA) 90 mcg/ inh inhalation aerosol) See instructions INHALE 2 PUFFS BY MOUTH EVERY 6 HOURS Unchanged bacillus coagulans-inulin (Probiotic Formula (Bacillus Coagulans)) 1 Capsules By Mouth Every day Unchanged hydrochlorothiazide-l osartan (hydrochlorothiazide- losartan 12.5 mg-100 mg oral tablet) 1 Tablets By Mouth Every day Unchanged rosuvastatin (rosuvastatin 10 mg Tab) 1 Tablets By Mouth Every day Unchanged sertraline (Zoloft 100 mg Tab) 1 Tablets By Mouth Every day Unchanged sertraline (Zoloft 25 mg Tab) 1 Tablets By Mouth Every day Unchanged tizanidine (Zanaflex 4 mg Tab) 1 Tablets As needed for Spasm Pharmacy Information [id number]: [address] [place], [place] [id number] [phone] Allergies No Known Medication Allergies Problems Ongoing - Any problem that you are currently receiving treatment for. BMI 39.0-39.9,adult Breast cancer screening by mammogram Cervical cancer screening Encounter for weight management Non-smoker Well woman exam Wrist pain Patient Survey You may receive a survey via text or e-mail asking about your office visit. Please share your experience with us by completing your survey. We appreciate your feedback and thank you for choosing us for your care. Normal [facility] Medicine Office/Clini c Noteon 02-15-2025 Family Medicine Office/Clinic Note Family Medicine Office/Clinic Note [facility] Staff Bonnie is a 44 year old female presenting for well woman Woman check up: Last pap: 2022 Last Sandor: 2022- would like order to go to [facility] Results of lap pap: normal Where was it done: hx: # of pregnancies...2 abortions... live births.2.. living children...2 menstrual cycle (normal,heavy,ect): regular History of STD: no Do you want tested for STD today: no Vaginal discharge, odor, itching: no Self breast exam at home? yes Hx of breast, cervical or uterine cancer in the family: breast cancer History of Present Illness pt presents today for well woman visit Review of Systems PHQ Score Initial Depression Screen Score: 0 SCORE Physical Exam Vitals & Measurements HR: 78(Peripheral) RR: 18 BP: 130/74 SpO2: 98% HT: 68 in HT: 172.0 cm WT: 267.641 lb WT: 121.40 kg BMI: 41.04 General: Well developed, well nourished, in no acute distress Neck: Neck supple. No masses or palpable cervical nodes. Trachea midline. Thyroid without nodules, masses, tenderness, or enlargement Breast: No mass, nodule, discharge, or erythema bilaterally, and no axillary lymphadenopathy Lungs: Normal respiratory effort and clear to auscultation Cardio: Regular rate and rhythm, normal S1 and S2, no murmur, no rub Abdomen: Soft, non-distended, non-tender, normal bowel sounds x4 Gyno: normal external genitalia. Urethra no discharge. Vagina normal without lesions, no vaginal discharge. Cervix normal, without lesions. Uterus normal. No adnexal masses. Pap obtained Neurologic: Grossly normal Skin: Briggs, moist, no tenting Lymph Nodes: No cervical adenopathy, nodes normal Mental Status: Alert and oriented x3. Normal mood and affect Assessment/Plan 1. Well woman exam (Z01.419: Encounter for gynecological examination (general) (routine) without abnormal findings) pt presents today for well woman visit. BSE discussed. pap obtained. mammogram ordered. RTC as needed Ordered: meloxicam, 15 mg = 1 tab(s), Oral, Daily, # 30 tab(s), Refills(s) 0, Pharmacy: [facility]/pharmacy #[id number], 172, cm, 02/15/25 13:09:00 EDT, Height/Length Dosing, 121.4, kg, 02/15/25 13:09:00 EDT, Weight Dosing phentermine, 37.5 mg = 1 tab(s), Oral, Daily, # 30 tab(s), Refills(s) 0, [id number], 172, cm, 02/15/25 13:09:00 EDT, Height/Length Dosing, 121.4, kg, 02/15/25 13:09:00 EDT, Weight Dosing topiramate, 50 mg = 1 tab(s), Oral, Daily, # 90 tab(s), Refills(s) 0, Pharmacy: [facility] #[id number], 172, cm, 02/15/25 13:09:00 EDT, Height/Length Dosing, 121.4, kg, 02/15/25 13:09:00 EDT, Weight Dosing Est Preventative 40 to 64 years [address] [place] Mamm Screen w/CAD if perf and 3D Brody PAP w/ HPV and Genotype rflx 2. Breast cancer screening by mammogram (Z12.31: Encounter for screening mammogram for malignant neoplasm of breast) mammogram ordered. sent to [facility] Ordered: meloxicam, 15 mg = 1 tab(s), Oral, Daily, # 30 tab(s), Refills(s) 0, Pharmacy: [facility]/pharmacy #[id number], 172, cm, 02/15/25 13:09:00 EDT, Height/Length Dosing, 121.4, kg, 02/15/25 13:09:00 EDT, Weight Dosing phentermine, 37.5 mg = 1 tab(s), Oral, Daily, # 30 tab(s), Refills(s) 0, Pharmacy: [facility]/pharmacy #[id number], 172, cm, 02/15/25 13:09:00 EDT, Height/Length Dosing, 121.4, kg, 02/15/25 13:09:00 EDT, Weight Dosing topiramate, 50 mg = 1 tab(s), Oral, Daily, # 90 tab(s), Refills(s) 0, Pharmacy: [facility]/pharmacy #[id number], 172, cm, 02/15/25 13:09:00 EDT, Height/Length Dosing, 121.4, kg, 02/15/25 13:09:00 EDT, Weight Dosing Est Preventative 40 to 64 years [address] [place] Mamm Screen w/CAD if perf and 3D Brody PAP w/ HPV and Genotype rflx 3. Cervical cancer screening (Z12.4: Encounter for screening for malignant neoplasm of cervix) pap obtained Ordered: meloxicam, 15 mg = 1 tab(s), Oral, Daily, # 30 tab(s), Refills(s) 0, Pharmacy: [facility]/pharmacy #[id number], 172, cm, 02/15/25 13:09:00 EDT, Height/Length Dosing, 121.4, kg, 02/15/25 13:09:00 EDT, Weight Dosing phentermine, 37.5 mg = 1 tab(s), Oral, Daily, # 30 tab(s), Refills(s) 0, Pharmacy: [facility]/pharmacy #[id number], 172, cm, 02/15/25 13:09:00 EDT, Height/Length Dosing, 121.4, kg, 02/15/25 13:09:00 EDT, Weight Dosing topiramate, 50 mg = 1 tab(s), Oral, Daily, # 90 tab(s), Refills(s) 0, Pharmacy: [facility]/pharmacy #[id number], 172, cm, 02/15/25 13:09:00 EDT, Height/Length Dosing, 121.4, kg, 02/15/25 13:09:00 EDT, Weight Dosing Est Preventative 40 to 64 years [address] PAP w/ HPV and Genotype rflx 4. Wrist pain (M25.539: Pain in unspecified wrist) will send meloxicam Ordered: meloxicam, 15 mg = 1 tab(s), Oral, Daily, # 30 tab(s), Refills(s) 0, Pharmacy: [facility]/pharmacy #[id number], 172, cm, 02/15/25 13:09:00 EDT, Height/Length Dosing, 121.4, kg, 02/15/25 13:09:00 EDT, Weight Dosing phentermine, 37.5 mg = 1 tab(s), Oral, Daily, # 30 tab(s), Refills(s) 0, Pharmacy: [facility]/pharmacy #[id number], 172, cm, 02/15/25 13:09:00 EDT, Height/Length Dosing, 121.4, kg, 02/15/25 13:09:00 EDT, Weight Dosing topiramate, 50 mg = 1 tab(s), Oral, Daily, # 90 tab(s), Refills( (more content not included)... Normal [facility] Comment on above: Result Comment: Elec tronically Signed By: Junior De La Fuente\.br\Date and Time Signed: 02/15/25 13:43 EDT PAP [id number] 02-15-2025 Gynecological Body Site ENDOCERVIX Normal [facility] Comment on above: Performed By: #### 1 [id number] #### [facility] [address] [place] [address] A1C with Estimated Average G luon 08-26-2024 Glucose [Mass/Vol] 114 mg/dL Normal [facility] Comment on above: Result Comment: PERF ORMED BY: [facility] [address] [place] [address] PATHOLOGIST [employer]SEMBLY SUPERVISOR LEATHA TSE M.D. Performed By: #### B 12, BMP #### [facility] [address] A1C with Estimated Average G luOrdered By: Delia Deng on 08-26-2024 HbA1c (Bld) [Mass fraction] 5.6 % 4.3-5.6 [facility] Comment on above: Result Comment: Incr eased risk for diabetes: 5.7 - 6.4 diabetes: >6.4 glycemic control for adults with diabetes: <7.0 Performed By: #### B 12, BMP #### [address] Increased risk for d iabetes: 5.7 - 6.4diabetes: >6.4glycemic control for adults with diabetes: <7.0 Alanine aminotransferase [En zymatic activity/volume] in Serum or PlasmaOrdered By: Delia Deng on 08-26-2024 ALT [Catalytic activity/Vol] 17 U/L 7-52 [facility] Comment on above: Performed By: #### B 12, BMP #### [address] Albumin [Mass/volume] in Ser um or Plasma by Bromocresol green (BCG) dye binding methoOrdered By: Delia Deng on 08-26-2024 Albumin BCG dye [Mass/Vol] 4.3 g/dL 3.5-5.7 [facility] Alkaline phosphatase [Enzyma tic activity/volume] in Serum or PlasmaOrdered By: Delia Deng on 08-26-2024 ALP [Catalytic activity/Vol] 56 U/L 34-104 [facility] Comment on above: Performed By: #### B 12, BMP #### [address] Aspartate aminotransferase [ Enzymatic activity/volume] in Serum or PlasmaOrdered By: Delia Deng on 08-26-2024 AST [Catalytic activity/Vol] 13 U/L 13-39 [facility] Comment on above: Performed By: #### B 12, BMP #### [address] Automated basophil %Ordered By: Delia Deng on 08-26-2024 Basophils/100 WBC (Bld) 1.0 % . [facility] Comment on above: Performed By: #### L IPID, CMP, HSCRP, CBC, A1C WTH eA #### [address] Automated basophil countOrde red By: Delia Deng on 08-26-2024 Basophils (Bld) [#/Vol] 0.1 10*3/uL 0.0-0.2 [facility] Comment on above: Result Comment: PERF ORMED BY: [place] [address] PATHOLOGIST [employer] ASSEMBLY SUPERVISOR LEATHA TSE M.D. Performed By: #### L IPID, CMP, HSCRP, CBC, A1C WTH eA #### [address] Automated blood monocyte cou ntOrdered By: Delia Deng on 08-26-2024 Monocytes (Bld) [#/Vol] 0.5 10*3/uL 0.0-0.8 [facility] Comment on above: Performed By: #### L IPID, CMP, HSCRP, CBC, A1C WTH eA #### [address] Automated eosinophil %Ordere d By: Delia Deng on 08-26-2024 Eosinophils/100 WBC (Bld) 1.3 % . [facility] Comment on above: Performed By: #### L IPID, CMP, HSCRP, CBC, A1C WTH eA #### [address] Automated eosinophil countOr dered By: Delia Deng on 08-26-2024 Eosinophils (Bld) [#/Vol] 0.1 10*3/uL 0.0-0.45 [facility] Comment on above: Performed By: #### L IPID, CMP, HSCRP, CBC, A1C WTH eA #### [address] Automated monocyte %Ordered By: Delia Deng on 08-26-2024 Monocytes/100 WBC (Bld) 6.2 % . [facility] Comment on above: Performed By: #### L IPID, CMP, HSCRP, CBC, A1C WTH eA #### [address] Automated neutrophil %Ordere d By: Delia Deng on 08-26-2024 Neutrophils/100 WBC (Bld) 66.0 % . [facility] Comment on above: Performed By: #### L IPID, CMP, HSCRP, CBC, A1C WTH eA #### [facility] [address] Bilirubin.total [Mass/volume ] in Serum or PlasmaOrdered By: Delia Deng on 08-26-2024 Bilirubin [Mass/Vol] 0.4 mg/dL 0.3-1.0 [facility] Comment on above: Performed By: #### B 12, BMP #### [facility] [address] C reactive protein [Mass/vol ume] in Serum or Plasma by High sensitivity methodOrdered By: Delia Deng on 08-26-2024 CRP High sensitivity method [Mass/Vol] 9.5 mg/L High 0.0-0.9 [facility] Comment on above: Cardiovascular Risk Classification (AHA/CDC)hsCRP < 1.0 mg/l low relative risk for CVDhsCRP 1.0-3.0 mg/l average relative risk for CVDhsCRP > 3.0 mg/l high relative risk for CVDhsCRP > 7.5 mg/l active inflammation*Two results two weeks apart and averaged provide a morestable estimate of hsCRP level.*hsCRP levels > 7.5 mg/l may suggest infection that canlimit the use of this marker for estimation of CVD risk. Calcium [Mass/volume] in Ser um or PlasmaOrdered By: Delia Deng on 08-26-2024 Calcium [Mass/Vol] 9.6 mg/dL 8.6-10.3 [facility] Comment on above: Performed By: #### B 12, BMP #### [facility] [address] Carbon dioxide, total [Moles /volume] in Serum or PlasmaOrdered By: Delia Deng on 08-26-2024 CO2 [Moles/Vol] 27.0 mmol/L 21.0-31.0 [facility] Comment on above: Performed By: #### B 12, BMP #### [facility] [address] [place] [address] [place] Chloride [Moles/volume] in S aiden or PlasmaOrdered By: Delia Deng on 08-26-2024 Chloride [Moles/Vol] 105 mmol/L 98-107 [facility] Comment on above: Performed By: #### B 12, BMP #### [facility] [address] [place] [address] [place] Cholesterol [Mass/volume] in Serum or PlasmaOrdered By: Delia Deng on 08-26-2024 Cholesterol [Mass/Vol] 163 mg/dL 140-200 [facility] Comment on above: Chol less than 200 m g/dl low riskChol 201-239 mg/dl borderline riskChol 240 mg/dl and greater high risk Result Comment: Chol less than 200 mg/dl low risk Chol 201-239 mg/dl borderline risk Chol 240 mg/dl and greater high risk Performed By: #### B 12, BMP #### [facility] [address] Cholesterol in LDL Calc [Mas s/Vol]Ordered By: Delia Deng on 08-26-2024 Cholesterol in LDL [Mass/Vol] 91 mg/dL 0-100 [facility] Comment on above: LDL ATP III CLASSIFI CATIONLDL less than 100 mg/dL OptimalLDL 100-129 mg/dL Near or above optimalLDL 130-159 mg/dL Borderline highLDL 160-189 mg/dL HighLDL greater than 189 mg/dL Very high Cholesterol in VLDL Calc [Ma ss/Vol]Ordered By: Delia Deng on 08-26-2024 Cholesterol in VLDL [Mass/Vol] 30 mg/dL [facility] Complete Blood Count Auto Di ffon 08-26-2024 Mean Corpuscular HGB Conc 33.3 g/dL Normal 32.0-35.0 [facility] Comment on above: Performed By: #### L IPID, CMP, HSCRP, CBC, A1C WTH eA #### [facility] [address] NRBC% 0.0 /100{WBC} Normal 0-0.5 [facility] Comment on above: Performed By: #### L IPID, CMP, HSCRP, CBC, A1C WTH eA #### [facility] [address] Comprehensive Metabolic Pane shahzad 08-26-2024 Albumin [Mass/Vol] 4.3 g/dL Normal 3.5-5.7 [facility] Comment on above: Performed By: #### B 12, BMP #### [facility] [address] [place] [address] [place] GFR/1.73 sq M.predicted MDRD (S/P/Bld) [Vol rate/Area] mL/min/{1.73_m2} Normal [facility] Comment on above: Performed By: #### B 12, BMP #### [address] Creatinine [Mass/volume] in Serum or PlasmaOrdered By: Delia Deng on 08-26-2024 Creatinine [Mass/Vol] 0.69 mg/dL 0.60-1.20 [facility] Comment on above: Performed By: #### B 12, BMP #### [address] Erythrocyte distribution wid th [Ratio] by Automated countOrdered By: Delia Deng on 08-26-2024 Erythrocyte distribution width (RBC) [Ratio] 14.7 % 11.9-15.3 [facility] Comment on above: Performed By: #### L IPID, CMP, HSCRP, CBC, A1C WTH eA #### [place] [address] [place] Erythrocytes [#/volume] in B lood by Automated countOrdered By: Delia Deng on 08-26-2024 RBC (Bld) [#/Vol] 4.62 10*6/uL 3.60-5.00 [facility] Comment on above: Performed By: #### L IPID, CMP, HSCRP, CBC, A1C WTH eA #### [place] [address] [place] Glucose [Mass/volume] in Ser um or PlasmaOrdered By: Delia Deng on 08-26-2024 Glucose [Mass/Vol] 101 mg/dL High 70-100 [facility] Comment on above: ADA recommended refe rence rangeRandom Glucose Reference Range is dependent on time and content of last meal. Glucose of more than 200 mg/dL in a nonstressed, ambulatory subject supports the diagnosis of Diabetes Mellitus. Result Comment: [place] Glucose Reference Range is dependent on time and content of last meal. Glucose of more than 200 mg/dL in a nonstressed, ambulatory subject supports the diagnosis of Diabetes Mellitus. ADA recommended reference range Performed By: #### B 12, BMP #### [facility] [address] Glucose mean value [Mass/vol ume] in Blood Estimated from glycated hemoglobinOrdered By: Delia Deng on 08-26-2024 Average glucose Estimated from glycated hemoglobin (Bld) [Mass/Vol] 114 mg/dL [facility] Hematocrit [Volume Fraction] of Blood by Automated countOrdered By: Delia Deng on 08-26-2024 Hematocrit (Bld) [Volume fraction] 39.7 % 34.0-46.4 [facility] Comment on above: Performed By: #### L IPID, CMP, HSCRP, CBC, A1C WT eA #### [facility] [address] Hemoglobin [Mass/volume] in BloodOrdered By: Delia Deng on 08-26-2024 Hemoglobin (Bld) [Mass/Vol] 13.2 g/dL 11.8-15.4 [facility] Comment on above: Performed By: #### L IPID, CMP, HSCRP, CBC, A1C WT eA #### [facility] [address] [place] [id number] [facility] High Sensitive CRPon 024 High Sensitive CRP 9.5 mg/L High 0.0-0.9 [facility] Comment on above: Result Comment: Card iovascular Risk Classification (AHA/CDC) hsCRP < 1.0 mg/l low relative risk for CVD hsCRP 1.0-3.0 mg/l average relative risk for CVD hsCRP > 3.0 mg/l high relative risk for CVD hsCRP > 7.5 mg/l active inflammation* Two results two weeks apart and averaged provide a more stable estimate of hsCRP level. *hsCRP levels > 7.5 mg/l may suggest infection that can limit the use of this marker for estimation of CVD risk. PERFORMED BY: [place] [address] PATHOLOGIST [employer]SEMBL[employer] SUPERVISOR LEATHA TSE M.D. Performed By: #### L IPID, CMP, HSCRP, CBC, A1C WTH eA #### [address] Leukocytes [#/volume] correc heidi for nucleated erythrocytes in Blood by Automated counOrdered By: Delia Deng on 08-26-2024 WBC corrected for nucl RBC Auto (Bld) [#/Vol] 7.3 10*3/uL 3.8-11.6 [facility] Leukocytes [#/volume] in Blo od by Automated countOrdered By: Delia Deng on 08-26-2024 WBC (Bld) [#/Vol] 7.3 10*3/uL 3.8-11.6 [facility] Comment on above: Performed By: #### L IPID, CMP, HSCRP, CBC, A1C WT eA #### [address] Lipid Panelon 08-26-2024 LDL Cholesterol,Calculated 91 mg/dL Normal 0-100 [facility] Comment on above: Result Comment: LDL ATP III CLASSIFICATION LDL less than 100 mg/dL Optimal LDL 100-129 mg/dL Near or above optimal LDL 130-159 mg/dL Borderline high LDL 160-189 mg/dL High LDL greater than 189 mg/dL Very high Performed By: #### B 12, BMP #### [address] Triglyceride w/Reflex 154 mg/dL High 0-149 [facility] Comment on above: Result Comment: TRIG ATP III CLASSIFICATION TRIG less than 150 mg/dL Normal TRIG 150-199 mg/dL Borderline high TRIG 200-500 mg/dL High TRIG greater than 500 mg/dL Very high Standard traceable to the Center for Disease Conrtrol and Prevention (CDC) test method. Performed By: #### B 12, BMP #### [address] VLDL CHOLESTEROL 30 mg/dL Normal [facility] Comment on above: Performed By: #### B 12, BMP #### [address] Lymphocytes [#/volume] in Bl ood by Automated countOrdered By: Delia Deng on 08-26-2024 Lymphocytes (Bld) [#/Vol] 1.9 10*3/uL 1.00-4.8 [facility] Comment on above: Performed By: #### L IPID, CMP, HSCRP, CBC, A1C WTH eA #### [address] Lymphocytes/100 leukocytes i n Blood by Automated countOrdered By: Delia Deng on 08-26-2024 Lymphocytes/100 WBC (Bld) 25.5 % . [facility] Comment on above: Performed By: #### L IPID, CMP, HSCRP, CBC, A1C WTH eA #### [address] MCH [Entitic mass] by Automa heidi countOrdered By: Delia Deng on 08-26-2024 MCH (RBC) [Entitic mass] 28.6 pg 24.7-34.3 [facility] Comment on above: Performed By: #### L IPID, CMP, HSCRP, CBC, A1C WTH eA #### [address] MCHC Auto (RBC) [Mass/Vol]Or dered By: Delia Deng on 08-26-2024 MCHC (RBC) [Mass/Vol] 33.3 g/dL 32.0-35.0 [facility] MCV [Entitic volume] by Auto mated countOrdered By: Delia Deng on 08-26-2024 MCV (RBC) [Entitic vol] 85.9 fL 80-100 [facility] Comment on above: Performed By: #### L IPID, CMP, HSCRP, CBC, A1C WTH eA #### [place] [address] [place] Neutrophils [#/volume] in Bl ood by Automated countOrdered By: Delia Deng on 08-26-2024 Neutrophils (Bld) [#/Vol] 4.8 10*3/uL 1.8-7.7 [facility] Comment on above: Performed By: #### L IPID, CMP, HSCRP, CBC, A1C WTH eA #### [facility] [address] No Panel InformationOrdered By: Delia Deng on 08-26-2024 Estimated GFR (CKD-EPI) > 60.0 mL/Min [facility] Creatinine Clearance (Chem N/A [facility] Nucleated erythrocytes [Pres ence] in Blood by Automated countOrdered By: Delia Deng on 08-26-2024 Nucleated RBC Auto Ql (Bld) 0.0 /100{WBC} 0-0.5 [facility] Platelet mean volume [Entiti c volume] in Blood by Automated countOrdered By: Delia Deng on 08-26-2024 Platelet mean volume (Bld) [Entitic vol] 8.2 fL 6.3-10.7 [facility] Comment on above: Performed By: #### L IPID, CMP, HSCRP, CBC, A1C WT eA #### [facility] [address] [place] [address] [place] Platelets [#/volume] in Bloo d by Automated countOrdered By: Delia Deng on 08-26-2024 Platelets (Bld) [#/Vol] 423 10*3/uL 150-450 [facility] Comment on above: Performed By: #### L IPID, CMP, HSCRP, CBC, A1C WTH eA #### [facility] [address] [place] [address] [place] Potassium [Moles/volume] in Serum or PlasmaOrdered By: eDlia Deng on 08-26-2024 Potassium [Moles/Vol] 4.3 mmol/L 3.5-5.1 [facility] Comment on above: Performed By: #### B 12, BMP #### [place] [address] [place] Protein [Mass/volume] in Ser um or PlasmaOrdered By: Delia Deng on 08-26-2024 Protein [Mass/Vol] 7.3 g/dL 6.4-8.9 [facility] Comment on above: Performed By: #### B 12, BMP #### [address] Serum globulin measurement b y calculation (mass/volume)Ordered By: Delia Deng on 08-26-2024 Globulin (S) [Mass/Vol] 3.0 g/dL [facility] Comment on above: Performed By: #### B 12, BMP #### [address] Serum or plasma albumin/glob ulin mass ratioOrdered By: Delia Deng on 08-26-2024 Albumin/Globulin [Mass ratio] 1.4 {ratio} [facility] Comment on above: Performed By: #### B 12, BMP #### [address] Serum or plasma anion gap de terminationOrdered By: Delia Deng on 08-26-2024 Anion gap [Moles/Vol] 11.3 mmol/L 6.0-15.0 [facility] Comment on above: Performed By: #### B 12, BMP #### [address] Serum or plasma high density lipoprotein (HDL) cholesterol measurementOrdered By: Delia Deng on 08-26-2024 Cholesterol in HDL [Mass/Vol] 41 mg/dL [facility] Comment on above: HDL CHOL ATP-III CLA SSIFICATION Cardiovascular RiskHDL > or equal to 60 mg/dL LOWHDL < 40 mg/dL HIGH Result Comment: HDL CHOL ATP-III CLASSIFICATION Cardiovascular Risk HDL > or equal to 60 mg/dL LOW HDL < 40 mg/dL HIGH Performed By: #### B 12, BMP #### [address] Serum or plasma total choles terol/high density lipoprotein (HDL) cholesterol mass ratOrdered By: Delia Deng on 08-26-2024 Cholesterol.total/Caroline sterol in HDL [Mass ratio] 4.0 {ratio} <5.0 [facility] Comment on above: Result Comment: PERF ORMED BY: [place] [address] PATHOLOGIST [employer]SEM[employer] SUPERVISOR LEATHA TSE M.D. Performed By: #### B 12, BMP #### [address] Sodium [Moles/volume] in Ser um or PlasmaOrdered By: Delia Deng on 08-26-2024 Sodium [Moles/Vol] 139 mmol/L 136-145 [facility] Comment on above: Performed By: #### B 12, BMP #### [address] Triglyceride [Mass/volume] i n Serum or PlasmaOrdered By: Delia Deng on 08-26-2024 Triglyceride [Mass/Vol] 154 mg/dL High 0-149 [facility] Comment on above: TRIG ATP III CLASSIF ICATIONTRIG less than 150 mg/dL NormalTRIG 150-199 mg/dL Borderline highTRIG 200-500 mg/dL High TRIG greater than 500 mg/dL Very highStandard traceable to the Center for Disease Conrtrol and Prevention (CDC) test method. Urea nitrogen [Mass/volume] in Serum or PlasmaOrdered By: Delia Deng on 08-26-2024 Urea nitrogen [Mass/Vol] 16 mg/dL 7-25 [facility] Comment on above: Performed By: #### B 12, BMP #### [address] Ambulatory Visit Summaryon 0 06-16-2024 Ambulatory Visit Summary Ambulatory Visit Summary BONNIE BEAVERS :1980 Visit Date:06/16/2024 Ambulatory Visit Instructions Your Diagnosis Encounter for weight management Non-smoker BMI 39.0-39.9,adult Your Care Team Attending Physician - Junior De La Fuente Primary Care Physician - Junior De La Fuente This Is Your Medications List albuterol (Albuterol (Eqv-ProAir HFA) 90 mcg/inh inhalation aerosol) bacillus coagulans-inulin (Probiotic Formula (Bacillus Coagulans)) fluticasone-salmetero l (fluticasone-salmeter ol 55 mcg-14 mcg/inh inhalation powder) hydrochlorothiazide-l osartan (hydrochlorothiazide- losartan 12.5 mg-100 mg oral tablet) rosuvastatin (rosuvastatin 10 mg Tab) sertraline (Zoloft 100 mg Tab) sertraline (Zoloft 25 mg Tab) tizanidine (Zanaflex 4 mg Tab) Procedures Performed Tonsillectomy (2011), Breast lumpectomy (11/04/2005). Discharge Vitals Heart Rate (Peripheral) 76 Respiratory Rate 18 Blood Pressure 142/84 Height 172 cm Height 68 in Weight 116.2 kg Weight 255.64 lb BMI 39.28 What to do next Scheduled Follow-Up Appointments Saturday 5:20 PM EST With: Junior De La Fuente Where: [place] [address]- Medications What How Much When Instructions Unchanged albuterol (Albuterol (Eqv-ProAir HFA) 90 mcg/ inh inhalation aerosol) 2 Puffs Inhalation Every 6 hours Unchanged bacillus coagulans-inulin (Probiotic Formula (Bacillus Coagulans)) 1 Capsules By Mouth Every day Unchanged fluticasone-salmetero l (fluticasone-salmeter ol 55 mcg-14 mcg/ inh inhalation powder) 1 Inhalation Inhalation 2 times a day Unchanged hydrochlorothiazide-l osartan (hydrochlorothiazide- losartan 12.5 mg-100 mg oral tablet) 1 Tablets By Mouth Every day Unchanged rosuvastatin (rosuvastatin 10 mg Tab) 1 Tablets By Mouth Every day Unchanged sertraline (Zoloft 100 mg Tab) 1 Tablets By Mouth Every day Unchanged sertraline (Zoloft 25 mg Tab) 1 Tablets By Mouth Every day Unchanged tizanidine (Zanaflex 4 mg Tab) Allergies No Known Medication Allergies Problems Ongoing - Any problem that you are currently receiving treatment for. BMI 39.0-39.9,adult Breast cancer screening by mammogram Encounter for weight management Non-smoker Well woman exam Patient Survey You may receive a survey via text or e-mail asking about your office visit. Please share your experience with us by completing your survey. We appreciate your feedback and thank you for choosing us for your care. Normal [facility] Family Medicine Office/Clini c Noteon 06-16-2024 Family Medicine Office/Clinic Note Family Medicine Office/Clinic Note Chief Complaint Weight Management HPI Staff Weight management Has been taking Semaglutide since April. Would like to start following Junior for the scripts. Sleeping well:Yes, 6-8 hours intermittent Chest pain:No Tremors:No Headaches:No Heart fluttering:No Blurred Vision:No Starting Weight: Weight last visit: Weight this visit: 255.64 History of Present Illness pt is currently taking semaglutide for weight loss Review of Systems PHQ Score Initial Depression Screen Score: 0 SCORE Physical Exam Vitals & Measurements HR: 76(Peripheral) RR: 18 BP: 142/84 SpO2: 97% HT: 68 in HT: 172 cm WT: 116.2 kg WT: 255.64 lb BMI: 39.28 General: alert, no acute distress ENMT: oral mucosa moist, no pharyngeal erythema or exudate Cardiovascular: regular rate and rhythm, normal peripheral perfusion Respiratory: Lungs CTA, respirations non labored Extremities: no deformity, no trauma Neurological: oriented x 4, LOC appropriate for age, CN II-XII intact, motor strength equal & normal bilaterally, speech normal Assessment/Plan 1. Encounter for weight management (Z76.89: Persons encountering health services in other specified circumstances) pt is going to check with previous provider regarding current dosing. will send order to [facility] once we get dosing information. pt is doing well. RTC 3 months. will do well woman at that visit 2. Non-smoker (Z78.9: Other specified health status) continue not smoking Ordered: fluticasone nasal, 2 spray(s), Nasal, Daily, 16 gm, Refill(s) 3, each nostril, [id number], 170, cm, 03/26/23 13:13:00 EDT, Height/Length Dosing, 118.7, kg, 03/26/23 13:13:00 EDT, Weight Dosing 3. BMI 39.0-39.9,adult (Z68.39: Body mass index [BMI] 39.0-39.9, adult) BMI education given. pt is currently on medication to help with weight loss 4. Class 1 obesity due to excess calories in adult (E66.09: Other obesity due to excess calories) see above Orders: fluticasone-salmetero l, 2 puff(s), Inhalation, BID, 12 gm, Refill(s) 6, [id number], 170, cm, 05/27/23 10:52:00 EDT, Height/Length Dosing, 118.8, kg, 05/27/23 10:52:00 EDT, Weight Dosing Follow-up No qualifying data available Patient Education Exercising to Lose Weight BMI for Adults Problem List/Past Medical History Ongoing BMI 39.0-39.9,adult Breast cancer screening by mammogram Encounter for weight management Non-smoker Well woman exam Historical No qualifying data Procedure/Surgical History Tonsillectomy (2011), Breast lumpectomy (11/04/2005). Medications Albuterol (Eqv-ProAir HFA) 90 mcg/inh inhalation aerosol, 2 puff(s), Inhalation, q6hr fluticasone-salmetero l 55 mcg-14 mcg/inh inhalation powder, 1 inh, Inhalation, BID hydrochlorothiazide-l osartan 12.5 mg-100 mg oral tablet, 1 tab(s), Oral, Daily Probiotic Formula (Bacillus Coagulans), 1 cap(s), Oral, Daily rosuvastatin 10 mg Tab, 10 mg= 1 tab(s), Oral, Daily Zanaflex 4 mg Tab Zoloft 100 mg Tab, 100 mg= 1 tab(s), Oral, Daily Zoloft 25 mg Tab, 25 mg= 1 tab(s), Oral, Daily Allergies No Known Medication Allergies Social History Tobacco Never (less than 100 in lifetime) Tobacco Use:. Never Smokeless Tobacco Use:. Household tobacco concerns: No. Yes, 06/16/2024 Family History Acute myocardial infarction: Father. Hyperlipidemia: Father. Hypertension: Mother. Primary malignant neoplasm of colon: Grandparent. Normal [facility] Comment on above: Result Comment: Elec tronically Signed By: Junior De La Fuente\.br\Date and Time Signed: 06/16/24 12:45 EDT A1C with Estimated Average G fransiscocindy 01-31-2024 Glucose [Mass/Vol] 117 mg/dL Normal [facility] Comment on above: Result Comment: PERF ORMED BY: [place] [address] PATHOLOGIST [employer]SEMBLY SUPERVISOR LEATHA TSE M.D. Performed By: #### L IPID, HSCRP, A1C WTH eA, TSH3, CBC, CMP #### [facility] [address] [place] [address] Alanine aminotransferase [En zymatic activity/volume] in Serum or PlasmaOrdered By: Delia Deng on 01-31-2024 ALT [Catalytic activity/Vol] 16 U/L Normal 7-52 [facility] Comment on above: Performed By: #### L IPID, HSCRP, A1C WTH eA, TSH3, CBC, CMP #### [address] Albumin [Mass/volume] in Ser um or Plasma by Bromocresol green (BCG) dye binding methoOrdered By: Delia Deng on 01-31-2024 Albumin BCG dye [Mass/Vol] 4.3 g/dL 3.5-5.7 [facility] Alkaline phosphatase [Enzyma tic activity/volume] in Serum or PlasmaOrdered By: Delia Deng on 01-31-2024 ALP [Catalytic activity/Vol] 59 U/L Normal 34-104 [facility] Comment on above: Performed By: #### L IPID, HSCRP, A1C WTH eA, TSH3, CBC, CMP #### [address] Aspartate aminotransferase [ Enzymatic activity/volume] in Serum or PlasmaOrdered By: Delia Deng on 01-31-2024 AST [Catalytic activity/Vol] 14 U/L Normal 13-39 [facility] Comment on above: Performed By: #### L IPID, HSCRP, A1C WTH eA, TSH3, CBC, CMP #### [facility] [address] [place] [address] [place] Automated basophil %Ordered By: Delia Deng on 01-31-2024 Basophils/100 WBC (Bld) 0.8 % Normal . [facility] Comment on above: Performed By: #### L IPID, HSCRP, A1C WTH eA, TSH3, CBC, CMP #### [address] Automated basophil countOrde red By: Delia Deng on 01-31-2024 Basophils (Bld) [#/Vol] 0.1 10*3/uL Normal 0.0-0.2 [facility] Comment on above: Result Comment: PERF ORMED BY: [place] [address] PATHOLOGIST [employer]SEM[employer] SUPERVISOR LEATHA TSE M.D. Performed By: #### L IPID, HSCRP, A1C WTH eA, TSH3, CBC, CMP #### [address] Automated blood monocyte cou ntOrdered By: Delia Deng on 01-31-2024 Monocytes (Bld) [#/Vol] 0.4 10*3/uL Normal 0.0-0.8 [facility] Comment on above: Performed By: #### L IPID, HSCRP, A1C WTH eA, TSH3, CBC, CMP #### [address] Automated eosinophil %Ordere d By: Delia Deng on 01-31-2024 Eosinophils/100 WBC (Bld) 3.0 % Normal . [facility] Comment on above: Performed By: #### L IPID, HSCRP, A1C WTH eA, TSH3, CBC, CMP #### [address] Automated eosinophil countOr dered By: Delia Deng on 01-31-2024 Eosinophils (Bld) [#/Vol] 0.3 10*3/uL Normal 0.0-0.45 [facility] Comment on above: Performed By: #### L IPID, HSCRP, A1C WTH eA, TSH3, CBC, CMP #### [address] Automated monocyte %Ordered By: Delia Deng on 01-31-2024 Monocytes/100 WBC (Bld) 5.0 % Normal . [facility] Comment on above: Performed By: #### L IPID, HSCRP, A1C WTH eA, TSH3, CBC, CMP #### [facility] [address] Automated neutrophil %Ordere d By: Delia Deng on 01-31-2024 Neutrophils/100 WBC (Bld) 68.2 % Normal . [facility] Comment on above: Performed By: #### L IPID, HSCRP, A1C WTH eA, TSH3, CBC, CMP #### [facility] [address] [place] [address] [place] Bilirubin.total [Mass/volume ] in Serum or PlasmaOrdered By: Delia Deng on 01-31-2024 Bilirubin [Mass/Vol] 0.3 mg/dL Normal 0.3-1.0 [facility] Comment on above: Performed By: #### L IPID, HSCRP, A1C WTH eA, TSH3, CBC, CMP #### [facility] [address] [place] [address] [place] C reactive protein [Mass/vol ume] in Serum or Plasma by High sensitivity methodOrdered By: Delia Deng on 01-31-2024 CRP High sensitivity method [Mass/Vol] 13.1 mg/L 0.0-0.9 [facility] Comment on above: Cardiovascular Risk Classification (AHA/CDC)hsCRP < 1.0 mg/l low relative risk for CVDhsCRP 1.0-3.0 mg/l average relative risk for CVDhsCRP > 3.0 mg/l high relative risk for CVDhsCRP > 7.5 mg/l active inflammation*Two results two weeks apart and averaged provide a morestable estimate of hsCRP level.*hsCRP levels > 7.5 mg/l may suggest infection that canlimit the use of this marker for estimation of CVD risk. Calcium [Mass/volume] in Ser um or PlasmaOrdered By: Delia Deng on 01-31-2024 Calcium [Mass/Vol] 9.4 mg/dL Normal 8.6-10.3 [facility] Comment on above: Performed By: #### L IPID, HSCRP, A1C WTH eA, TSH3, CBC, CMP #### [facility] [address] [place] [address] [place] Carbon dioxide, total [Moles /volume] in Serum or PlasmaOrdered By: Delia Deng on 01-31-2024 CO2 [Moles/Vol] 21.8 mmol/L Normal 21.0-31.0 [facility] Comment on above: Performed By: #### L IPID, HSCRP, A1C WTH eA, TSH3, CBC, CMP #### [facility] [address] [place] [address] [place] Chloride [Moles/volume] in S aiden or PlasmaOrdered By: Delia Deng on 01-31-2024 Chloride [Moles/Vol] 109 mmol/L High 98-107 [facility] Comment on above: Performed By: #### L IPID, HSCRP, A1C WT eA, TSH3, CBC, CMP #### [facility] [address] [place] [address] [place] Cholesterol [Mass/volume] in Serum or PlasmaOrdered By: Delia Deng on 01-31-2024 Cholesterol [Mass/Vol] 163 mg/dL Normal 140-200 [facility] Comment on above: Chol less than 200 m g/dl low riskChol 201-239 mg/dl borderline riskChol 240 mg/dl and greater high risk Result Comment: Chol less than 200 mg/dl low risk Chol 201-239 mg/dl borderline risk Chol 240 mg/dl and greater high risk Performed By: #### L IPID, HSCRP, A1C WTH eA, TSH3, CBC, CMP #### [facility] [address] [place] [address] [place] Cholesterol in LDL Calc [Mas s/Vol]Ordered By: Delia Deng on 01-31-2024 Cholesterol in LDL [Mass/Vol] 93 mg/dL 0-100 [facility] Comment on above: LDL ATP III CLASSIFI CATIONLDL less than 100 mg/dL OptimalLDL 100-129 mg/dL Near or above optimalLDL 130-159 mg/dL Borderline highLDL 160-189 mg/dL HighLDL greater than 189 mg/dL Very high Cholesterol in VLDL Calc [Ma ss/Vol]Ordered By: Delia Deng on 01-31-2024 Cholesterol in VLDL [Mass/Vol] 27 mg/dL [facility] Complete Blood Count Auto Di ffon 01-31-2024 Mean Corpuscular HGB Conc 32.3 g/dL Normal 32.0-35.0 [facility] Comment on above: Performed By: #### L IPID, HSCRP, A1C WTH eA, TSH3, CBC, CMP #### [address] NRBC% 0.0 /100{WBC} Normal 0-0.5 [facility] Comment on above: Performed By: #### L IPID, HSCRP, A1C WTH eA, TSH3, CBC, CMP #### [address] Comprehensive Metabolic Pane shahzad 01-31-2024 Albumin [Mass/Vol] 4.3 g/dL Normal 3.5-5.7 [facility] Comment on above: Performed By: #### L IPID, HSCRP, A1C WTH eA, TSH3, CBC, CMP #### [address] GFR/1.73 sq M.predicted MDRD (S/P/Bld) [Vol rate/Area] mL/min/{1.73_m2} Normal [facility] Comment on above: Performed By: #### L IPID, HSCRP, A1C WTH eA, TSH3, CBC, CMP #### [address] Creatinine [Mass/volume] in Serum or PlasmaOrdered By: Delia Deng on 01-31-2024 Creatinine [Mass/Vol] 0.68 mg/dL Normal 0.60-1.20 [facility] Comment on above: Performed By: #### L IPID, HSCRP, A1C WTH eA, TSH3, CBC, CMP #### [address] Erythrocyte distribution wid th [Ratio] by Automated countOrdered By: Delia Deng on 01-31-2024 Erythrocyte distribution width (RBC) [Ratio] 13.9 % Normal 11.9-15.3 [facility] Comment on above: Performed By: #### L IPID, HSCRP, A1C WTH eA, TSH3, CBC, CMP #### [facility] [address] Erythrocytes [#/volume] in B lood by Automated countOrdered By: Delia Deng on 01-31-2024 RBC (Bld) [#/Vol] 4.60 10*6/uL Normal 3.60-5.00 [facility] Comment on above: Performed By: #### L IPID, HSCRP, A1C WTH eA, TSH3, CBC, CMP #### [facility] [address] Glucose [Mass/volume] in Ser um or PlasmaOrdered By: Delia Deng on 01-31-2024 Glucose [Mass/Vol] 86 mg/dL Normal 70-100 [facility] Comment on above: ADA recommended refe rence rangeRandom Glucose Reference Range is dependent on time and content of last meal. Glucose of more than 200 mg/dL in a nonstressed, ambulatory subject supports the diagnosis of Diabetes Mellitus. Result Comment: [place] Glucose Reference Range is dependent on time and content of last meal. Glucose of more than 200 mg/dL in a nonstressed, ambulatory subject supports the diagnosis of Diabetes Mellitus. ADA recommended reference range Performed By: #### L IPID, HSCRP, A1C WTH eA, TSH3, CBC, CMP #### [facility] [address] Glucose mean value [Mass/vol ume] in Blood Estimated from glycated hemoglobinOrdered By: Delia Deng on 01-31-2024 Average glucose Estimated from glycated hemoglobin (Bld) [Mass/Vol] 117 mg/dL [facility] Hematocrit [Volume Fraction] of Blood by Automated countOrdered By: Delia Deng on 01-31-2024 Hematocrit (Bld) [Volume fraction] 40.0 % Normal 34.0-46.4 [facility] Comment on above: Performed By: #### L IPID, HSCRP, A1C WTH eA, TSH3, CBC, CMP #### [facility] [address] Hemoglobin A1c percentageOrd ered By: Delia Deng on 01-31-2024 HbA1c (Bld) [Mass fraction] 5.7 % High 4.3-5.6 [facility] Comment on above: Increased risk for d iabetes: 5.7 - 6.4diabetes: >6.4glycemic control for adults with diabetes: <7.0 Result Comment: Incr eased risk for diabetes: 5.7 - 6.4 diabetes: >6.4 glycemic control for adults with diabetes: <7.0 Performed By: #### L IPID, HSCRP, A1C WTH eA, TSH3, CBC, CMP #### [facility] [address] Hemoglobin [Mass/volume] in BloodOrdered By: Delia Deng on 01-31-2024 Hemoglobin (Bld) [Mass/Vol] 12.9 g/dL Normal 11.8-15.4 [facility] Comment on above: Performed By: #### L IPID, HSCRP, A1C WTH eA, TSH3, CBC, CMP #### [facility] [address] High Sensitive CRPon 024 High Sensitive CRP 13.1 mg/L High 0.0-0.9 [facility] Comment on above: Result Comment: Card iovascular Risk Classification (AHA/CDC) hsCRP < 1.0 mg/l low relative risk for CVD hsCRP 1.0-3.0 mg/l average relative risk for CVD hsCRP > 3.0 mg/l high relative risk for CVD hsCRP > 7.5 mg/l active inflammation* Two results two weeks apart and averaged provide a more stable estimate of hsCRP level. *hsCRP levels > 7.5 mg/l may suggest infection that can limit the use of this marker for estimation of CVD risk. PERFORMED BY: [place] [address] PATHOLOGIST [employer]PER[employer] LEATHA TSE M.D. Performed By: #### L IPID, HSCRP, A1C WTH eA, TSH3, CBC, CMP #### [facility] [address] Leukocytes [#/volume] correc heidi for nucleated erythrocytes in Blood by Automated counOrdered By: Delia Deng on 01-31-2024 WBC corrected for nucl RBC Auto (Bld) [#/Vol] 9.1 10*3/uL 3.8-11.6 [facility] Leukocytes [#/volume] in Blo od by Automated countOrdered By: Delia Deng on 01-31-2024 WBC (Bld) [#/Vol] 9.1 10*3/uL Normal 3.8-11.6 [facility] Comment on above: Performed By: #### L IPID, HSCRP, A1C WTH eA, TSH3, CBC, CMP #### [facility] [address] Lipid Panelon 01-31-2024 LDL Cholesterol,Calculated 93 mg/dL Normal 0-100 [facility] Comment on above: Result Comment: LDL ATP III CLASSIFICATION LDL less than 100 mg/dL Optimal LDL 100-129 mg/dL Near or above optimal LDL 130-159 mg/dL Borderline high LDL 160-189 mg/dL High LDL greater than 189 mg/dL Very high Performed By: #### L IPID, HSCRP, A1C WTH eA, TSH3, CBC, CMP #### [facility] [address] Triglyceride w/Reflex 136 mg/dL Normal 0-149 [facility] Comment on above: Result Comment: TRIG ATP III CLASSIFICATION TRIG less than 150 mg/dL Normal TRIG 150-199 mg/dL Borderline high TRIG 200-500 mg/dL High TRIG greater than 500 mg/dL Very high Standard traceable to the Center for Disease Conrtrol and Prevention (CDC) test method. Performed By: #### L IPID, HSCRP, A1C WTH eA, TSH3, CBC, CMP #### [facility] [address] VLDL CHOLESTEROL 27 mg/dL Normal [facility] Comment on above: Performed By: #### L IPID, HSCRP, A1C WTH eA, TSH3, CBC, CMP #### [facility] [address] [place] [address] [place] Lymphocytes [#/volume] in Bl ood by Automated countOrdered By: Delia Deng on 01-31-2024 Lymphocytes (Bld) [#/Vol] 2.1 10*3/uL Normal 1.00-4.8 [facility] Comment on above: Performed By: #### L IPID, HSCRP, A1C WTH eA, TSH3, CBC, CMP #### [facility] [address] Lymphocytes/100 leukocytes i n Blood by Automated countOrdered By: Delia Deng on 01-31-2024 Lymphocytes/100 WBC (Bld) 23.0 % Normal . [facility] Comment on above: Performed By: #### L IPID, HSCRP, A1C WTH eA, TSH3, CBC, CMP #### [address] MCH [Entitic mass] by Automa heidi countOrdered By: Delia Deng on 01-31-2024 MCH (RBC) [Entitic mass] 28.1 pg Normal 24.7-34.3 [facility] Comment on above: Performed By: #### L IPID, HSCRP, A1C WTH eA, TSH3, CBC, CMP #### [address] MCHC Auto (RBC) [Mass/Vol]Or dered By: Delia Deng on 01-31-2024 MCHC (RBC) [Mass/Vol] 32.3 g/dL 32.0-35.0 [facility] MCV [Entitic volume] by Auto mated countOrdered By: Delia Deng on 01-31-2024 MCV (RBC) [Entitic vol] 87.1 fL Normal 80-100 [facility] Comment on above: Performed By: #### L IPID, HSCRP, A1C WTH eA, TSH3, CBC, CMP #### [address] Neutrophils [#/volume] in Bl ood by Automated countOrdered By: Delia Deng on 01-31-2024 Neutrophils (Bld) [#/Vol] 6.2 10*3/uL Normal 1.8-7.7 [facility] Comment on above: Performed By: #### L IPID, HSCRP, A1C WTH eA, TSH3, CBC, CMP #### [address] [place] [address] [place] No Panel InformationOrdered By: Delia Deng on 01-31-2024 Estimated GFR (CKD-EPI) > 60.0 mL/Min [facility] Creatinine Clearance (Chem N/A [facility] Nucleated erythrocytes [Pres ence] in Blood by Automated countOrdered By: Delia Deng on 01-31-2024 Nucleated RBC Auto Ql (Bld) 0.0 /100{WBC} 0-0.5 [facility] Platelet mean volume [Entiti c volume] in Blood by Automated countOrdered By: Delia Deng on 01-31-2024 Platelet mean volume (Bld) [Entitic vol] 8.2 fL Normal 6.3-10.7 [facility] Comment on above: Performed By: #### L IPID, HSCRP, A1C WTH eA, TSH3, CBC, CMP #### [place] [address] [place] Platelets [#/volume] in Bloo d by Automated countOrdered By: Delia Deng on 01-31-2024 Platelets (Bld) [#/Vol] 400 10*3/uL Normal 150-450 [facility] Comment on above: Performed By: #### L IPID, HSCRP, A1C WTH eA, TSH3, CBC, CMP #### [facility] [address] [place] [address] [place] Potassium [Moles/volume] in Serum or PlasmaOrdered By: Delia Deng on 01-31-2024 Potassium [Moles/Vol] 4.1 mmol/L Normal 3.5-5.1 [facility] Comment on above: Performed By: #### L IPID, HSCRP, A1C WTH eA, TSH3, CBC, CMP #### [facility] [address] [place] [address] [place] Protein [Mass/volume] in Ser um or PlasmaOrdered By: Delia Deng on 01-31-2024 Protein [Mass/Vol] 7.3 g/dL Normal 6.4-8.9 [facility] Comment on above: Performed By: #### L IPID, HSCRP, A1C WTH eA, TSH3, CBC, CMP #### [facility] [address] Serum globulin measurement b y calculation (mass/volume)Ordered By: Delia Deng on 01-31-2024 Globulin (S) [Mass/Vol] 3.0 g/dL Normal [facility] Comment on above: Performed By: #### L IPID, HSCRP, A1C WTH eA, TSH3, CBC, CMP #### [facility] [address] Serum or plasma albumin/glob ulin mass ratioOrdered By: Delia Deng on 01-31-2024 Albumin/Globulin [Mass ratio] 1.4 {ratio} Normal [facility] Comment on above: Performed By: #### L IPID, HSCRP, A1C WTH eA, TSH3, CBC, CMP #### [facility] [address] [place] [address] Serum or plasma anion gap de terminationOrdered By: Delia Deng on 01-31-2024 Anion gap [Moles/Vol] 13.3 mmol/L Normal 6.0-15.0 [facility] Comment on above: Performed By: #### L IPID, HSCRP, A1C WTH eA, TSH3, CBC, CMP #### [facility] [address] [place] [address] Serum or plasma high density lipoprotein (HDL) cholesterol measurementOrdered By: Delia Deng on 01-31-2024 Cholesterol in HDL [Mass/Vol] 43 mg/dL Normal 23-92 [facility] Comment on above: HDL CHOL ATP-III CLA SSIFICATION Cardiovascular RiskHDL > or equal to 60 mg/dL LOWHDL < 40 mg/dL HIGH Result Comment: HDL CHOL ATP-III CLASSIFICATION Cardiovascular Risk HDL > or equal to 60 mg/dL LOW HDL < 40 mg/dL HIGH Performed By: #### L IPID, HSCRP, A1C WTH eA, TSH3, CBC, CMP #### [facility] [address] [place] [address] Serum or plasma total choles terol/high density lipoprotein (HDL) cholesterol mass ratOrdered By: Delia Deng on 01-31-2024 Cholesterol.total/Caroline sterol in HDL [Mass ratio] 3.8 {ratio} Normal <5.0 [facility] Comment on above: Performed By: #### L IPID, HSCRP, A1C WTH eA, TSH3, CBC, CMP #### [facility] [address] Sodium [Moles/volume] in Ser um or PlasmaOrdered By: Delia Deng on 01-31-2024 Sodium [Moles/Vol] 140 mmol/L Normal 136-145 [facility] Comment on above: Performed By: #### L IPID, HSCRP, A1C WTH eA, TSH3, CBC, CMP #### [facility] [address] Thyrotropin [Units/volume] i n Serum or PlasmaOrdered By: Delia Deng on 01-31-2024 TSH Qn 1.19 m[IU]/L Normal 0.45-5.33 [facility] Comment on above: Result Comment: PERF ORMED BY: [place] [address] PATHOLOGIST [employer] SUPER[employer]OR LEATHA TSE M.D. Performed By: #### L IPID, HSCRP, A1C WTH eA, TSH3, CBC, CMP #### [address] Triglyceride [Mass/volume] i n Serum or PlasmaOrdered By: Delia Deng on 01-31-2024 Triglyceride [Mass/Vol] 136 mg/dL 0-149 [facility] Comment on above: TRIG ATP III CLASSIF ICATIONTRIG less than 150 mg/dL NormalTRIG 150-199 mg/dL Borderline highTRIG 200-500 mg/dL High TRIG greater than 500 mg/dL Very highStandard traceable to the Center for Disease Conrtrol and Prevention (CDC) test method. Urea nitrogen [Mass/volume] in Serum or PlasmaOrdered By: Delia Deng on 01-31-2024 Urea nitrogen [Mass/Vol] 19 mg/dL Normal 7-25 [facility] Comment on above: Performed By: #### L IPID, HSCRP, A1C WTH eA, TSH3, CBC, CMP #### [facility] [address] [place] [id number] [facility] Basic Metabolic Panelon 09-04 GFR/1.73 sq M.predicted MDRD (S/P/Bld) [Vol rate/Area] mL/min/{1.73_m2} Normal [facility] Comment on above: Order Comment: Reaso n for Exam Medication monitoring encounter Performed By: #### B 12, BMP #### [facility] [address] [place] [address] [place] Calcium [Mass/volume] in Ser um or PlasmaOrdered By: Reji Alcantara on 09-21-2023 Calcium [Mass/Vol] 9.3 mg/dL Normal 8.6-10.3 [facility] Comment on above: Order Comment: Reaso n for Exam Medication monitoring encounter Performed By: #### B 12, BMP #### [facility] [address] Carbon dioxide, total [Moles /volume] in Serum or PlasmaOrdered By: Reji Alcantara on 09-21-2023 CO2 [Moles/Vol] 26.0 mmol/L Normal 21.0-31.0 [facility] Comment on above: Order Comment: Reaso n for Exam Medication monitoring encounter Performed By: #### B 12, BMP #### [facility] [address] [place] [address] [place] Chloride [Moles/volume] in S aiden or PlasmaOrdered By: Reji Alcantara on 09-21-2023 Chloride [Moles/Vol] 107 mmol/L Normal 98-107 [facility] Comment on above: Order Comment: Reaso n for Exam Medication monitoring encounter Performed By: #### B 12, BMP #### [facility] [address] [place] [id number] [place] Creatinine [Mass/volume] in Serum or PlasmaOrdered By: Reji Alcantara on 09-21-2023 Creatinine [Mass/Vol] 0.73 mg/dL Normal 0.60-1.20 [facility] Comment on above: Order Comment: Reaso n for Exam Medication monitoring encounter Performed By: #### B 12, BMP #### [facility] [address] [place] [id number] [place] Glucose [Mass/volume] in Ser um or PlasmaOrdered By: Reji Alcantara on 09-21-2023 Glucose [Mass/Vol] 93 mg/dL Normal 70-100 [facility] Comment on above: ADA recommended refe rence rangeRandom Glucose Reference Range is dependent on time and content of last meal. Glucose of more than 200 mg/dL in a nonstressed, ambulatory subject supports the diagnosis of Diabetes Mellitus. Order Comment: Reaso n for Exam Medication monitoring encounter Result Comment: [place] Glucose Reference Range is dependent on time and content of last meal. Glucose of more than 200 mg/dL in a nonstressed, ambulatory subject supports the diagnosis of Diabetes Mellitus. ADA recommended reference range Performed By: #### B 12, BMP #### [address] No Panel InformationOrdered By: Reji Alcantara on 09-21-2023 Estimated GFR (CKD-EPI) > 60.0 mL/Min [facility] Creatinine Clearance (Chem N/A [facility] Potassium [Moles/volume] in Serum or PlasmaOrdered By: Reji Alcantara on 09-21-2023 Potassium [Moles/Vol] 4.3 mmol/L Normal 3.5-5.1 [facility] Comment on above: Order Comment: Reaso n for Exam Medication monitoring encounter Performed By: #### B 12, BMP #### [facility] [address] [place] [address] Serum or plasma anion gap de terminationOrdered By: Reji Alcantara on 09-21-2023 Anion gap [Moles/Vol] 13.3 mmol/L Normal 6.0-15.0 [facility] Comment on above: Order Comment: Reaso n for Exam Medication monitoring encounter Performed By: #### B 12, BMP #### [place] [address] [place] Sodium [Moles/volume] in Ser um or PlasmaOrdered By: Reji Alcantara on 09-21-2023 Sodium [Moles/Vol] 142 mmol/L Normal 136-145 [facility] Comment on above: Order Comment: Reaso n for Exam Medication monitoring encounter Performed By: #### B 12, BMP #### [facility] [address] Urea nitrogen [Mass/volume] in Serum or PlasmaOrdered By: Reji Alcantara on 09-21-2023 Urea nitrogen [Mass/Vol] 18 mg/dL Normal 7-25 [facility] Comment on above: Order Comment: Reaso n for Exam Medication monitoring encounter Performed By: #### B 12, BMP #### [facility] [address] Vitamin B12 ser/plasOrdered By: Reji Alcantara on 09-21-2023 Cobalamin (Vitamin B12) [Mass/Vol] 337 pg/mL Normal 180-914 [facility] Comment on above: Order Comment: Reaso n for Exam Medication monitoring encounter Result Comment: PERF ORMED BY: [place] [address] PATHOLOGIST [employer] SUPERVISOR LEATHA TSE M.D. Performed By: #### B 12, BMP #### [facility] [address] [place] [address] Alanine aminotransferase [En zymatic activity/volume] in Serum or PlasmaOrdered By: Delia Deng on 05-01-2023 ALT [Catalytic activity/Vol] 15 U/L 7-52 [facility] Albumin [Mass/volume] in Ser um or Plasma by Bromocresol green (BCG) dye binding methoOrdered By: Delia Deng on 05-01-2023 Albumin BCG dye [Mass/Vol] 4.5 g/dL 3.5-5.7 [facility] Alkaline phosphatase [Enzyma tic activity/volume] in Serum or PlasmaOrdered By: Delia Deng on 05-01-2023 ALP [Catalytic activity/Vol] 70 U/L 34-104 [facility] Aspartate aminotransferase [ Enzymatic activity/volume] in Serum or PlasmaOrdered By: Delia Deng on 05-01-2023 AST [Catalytic activity/Vol] 14 U/L 13-39 [facility] Basophils Auto (Bld) [#/Vol] Ordered By: Delia Deng on 05-01-2023 Basophils (Bld) [#/Vol] 0.1 10*3/uL 0.0-0.2 [facility] Basophils/100 WBC Auto (Bld) Ordered By: Delia Deng on 05-01-2023 Basophils/100 WBC (Bld) 0.8 % . [facility] Bilirubin.total [Mass/volume ] in Serum or PlasmaOrdered By: Delia Deng on 05-01-2023 Bilirubin [Mass/Vol] 0.4 mg/dL 0.3-1.0 [facility] C reactive protein [Mass/vol ume] in Serum or Plasma by High sensitivity methodOrdered By: Delia Deng on 05-01-2023 CRP High sensitivity method [Mass/Vol] 12.0 mg/L 0.0-0.9 [facility] Comment on above: Cardiovascular Risk Classification (AHA/CDC)hsCRP < 1.0 mg/l low relative risk for CVDhsCRP 1.0-3.0 mg/l average relative risk for CVDhsCRP > 3.0 mg/l high relative risk for CVDhsCRP > 7.5 mg/l active inflammation*Two results two weeks apart and averaged provide a morestable estimate of hsCRP level.*hsCRP levels > 7.5 mg/l may suggest infection that canlimit the use of this marker for estimation of CVD risk. Calcium [Mass/volume] in Ser um or PlasmaOrdered By: Delia Deng on 05-01-2023 Calcium [Mass/Vol] 9.5 mg/dL 8.6-10.3 [facility] Carbon dioxide, total [Moles /volume] in Serum or PlasmaOrdered By: Delia Deng on 05-01-2023 CO2 [Moles/Vol] 28.4 mmol/L 21.0-31.0 [facility] Chloride [Moles/volume] in S aiden or PlasmaOrdered By: Delia Deng on 05-01-2023 Chloride [Moles/Vol] 104 mmol/L 98-107 [facility] Cholesterol [Mass/volume] in Serum or PlasmaOrdered By: Delia Deng on 05-01-2023 Cholesterol [Mass/Vol] 211 mg/dL 140-200 [facility] Comment on above: Chol less than 200 m g/dl low riskChol 201-239 mg/dl borderline riskChol 240 mg/dl and greater high risk Cholesterol in LDL Calc [Mas s/Vol]Ordered By: Delia Deng on 05-01-2023 Cholesterol in LDL [Mass/Vol] 117 mg/dL 0-100 [facility] Comment on above: LDL ATP III CLASSIFI CATIONLDL less than 100 mg/dL OptimalLDL 100-129 mg/dL Near or above optimalLDL 130-159 mg/dL Borderline highLDL 160-189 mg/dL HighLDL greater than 189 mg/dL Very high Cholesterol in VLDL Calc [Ma ss/Vol]Ordered By: Delia Deng on 05-01-2023 Cholesterol in VLDL [Mass/Vol] 43 mg/dL [facility] Creatinine [Mass/volume] in Serum or PlasmaOrdered By: Delia Deng on 05-01-2023 Creatinine [Mass/Vol] 0.67 mg/dL 0.60-1.20 [facility] Eosinophils Auto (Bld) [#/Vo l]Ordered By: Delia Deng on 05-01-2023 Eosinophils (Bld) [#/Vol] 0.1 10*3/uL 0.0-0.45 [facility] Eosinophils/100 WBC Auto (Bl d)Ordered By: Delia Deng on 05-01-2023 Eosinophils/100 WBC (Bld) 1.0 % . [facility] Erythrocyte distribution wid th Auto (RBC) [Ratio]Ordered By: Delia Deng on 05-01-2023 Erythrocyte distribution width (RBC) [Ratio] 14.4 % 11.9-15.3 [facility] Globulin Calc (S) [Mass/Vol] Ordered By: Delia Deng on 05-01-2023 Globulin (S) [Mass/Vol] 2.6 g/dL [facility] Glucose [Mass/volume] in Ser um or PlasmaOrdered By: Delia Deng on 05-01-2023 Glucose [Mass/Vol] 83 mg/dL 70-100 [facility] Comment on above: ADA recommended refe rence rangeRandom Glucose Reference Range is dependent on time and content of last meal. Glucose of more than 200 mg/dL in a nonstressed, ambulatory subject supports the diagnosis of Diabetes Mellitus. Hematocrit Auto (Bld) [Volum e fraction]Ordered By: Delia Deng on 05-01-2023 Hematocrit (Bld) [Volume fraction] 38.7 % 34.0-46.4 [facility] Hemoglobin [Mass/volume] in BloodOrdered By: Delia Deng on 05-01-2023 Hemoglobin (Bld) [Mass/Vol] 12.7 g/dL 11.8-15.4 [facility] Leukocytes [#/volume] correc heidi for nucleated erythrocytes in Blood by Automated counOrdered By: Delia Deng on 05-01-2023 WBC corrected for nucl RBC Auto (Bld) [#/Vol] 8.2 10*3/uL 3.8-11.6 [facility] Lymphocytes Auto (Bld) [#/Vo l]Ordered By: Delia Deng on 05-01-2023 Lymphocytes (Bld) [#/Vol] 1.6 10*3/uL 1.00-4.8 [facility] Lymphocytes/100 WBC Auto (Bl d)Ordered By: Delia Deng on 05-01-2023 Lymphocytes/100 WBC (Bld) 19.8 % . [facility] MCH Auto (RBC) [Entitic mass ]Ordered By: Delia Deng on 05-01-2023 MCH (RBC) [Entitic mass] 27.9 pg 24.7-34.3 [facility] MCHC Auto (RBC) [Mass/Vol]Or dered By: Delia Deng on 05-01-2023 MCHC (RBC) [Mass/Vol] 32.9 g/dL 32.0-35.0 [facility] MCV Auto (RBC) [Entitic vol] Ordered By: Delia Deng on 05-01-2023 MCV (RBC) [Entitic vol] 84.9 fL 80-100 [facility] Monocytes Auto (Bld) [#/Vol] Ordered By: Delia Deng on 05-01-2023 Monocytes (Bld) [#/Vol] 0.4 10*3/uL 0.0-0.8 [facility] Monocytes/100 WBC Auto (Bld) Ordered By: Delia Deng on 05-01-2023 Monocytes/100 WBC (Bld) 4.6 % . [facility] Neutrophils Auto (Bld) [#/Vo l]Ordered By: Delia Deng on 05-01-2023 Neutrophils (Bld) [#/Vol] 6.1 10*3/uL 1.8-7.7 [facility] Neutrophils/100 WBC Auto (Bl d)Ordered By: Delia Deng on 05-01-2023 Neutrophils/100 WBC (Bld) 73.8 % . [facility] No Panel InformationOrdered By: Delia Deng on 05-01-2023 Estimated GFR (CKD-EPI) > 60.0 mL/Min [facility] Creatinine Clearance (Chem N/A [facility] Nucleated erythrocytes [Pres ence] in Blood by Automated countOrdered By: Delia Deng on 05-01-2023 Nucleated RBC Auto Ql (Bld) 0.2 /100{WBC} 0-0.5 [facility] Platelet mean volume Auto (B ld) [Entitic vol]Ordered By: Delia Deng on 05-01-2023 Platelet mean volume (Bld) [Entitic vol] 8.4 fL 6.3-10.7 [facility] Platelets Auto (Bld) [#/Vol] Ordered By: Delia Deng on 05-01-2023 Platelets (Bld) [#/Vol] 367 10*3/uL 150-450 [facility] Potassium [Moles/volume] in Serum or PlasmaOrdered By: Delia Deng on 05-01-2023 Potassium [Moles/Vol] 4.5 mmol/L 3.5-5.1 [facility] Protein [Mass/volume] in Ser um or PlasmaOrdered By: Delia Deng on 05-01-2023 Protein [Mass/Vol] 7.1 g/dL 6.4-8.9 [facility] RBC Auto (Bld) [#/Vol]Ordere d By: Delia Deng on 05-01-2023 RBC (Bld) [#/Vol] 4.56 10*6/uL 3.60-5.00 [facility] Serum or plasma albumin/glob ulin mass ratioOrdered By: Delia Deng on 05-01-2023 Albumin/Globulin [Mass ratio] 1.7 {ratio} [facility] Serum or plasma anion gap de terminationOrdered By: Delia Deng on 05-01-2023 Anion gap [Moles/Vol] 12.1 mmol/L 6.0-15.0 Fi [facility] Serum or plasma high density lipoprotein (HDL) cholesterol measurementOrdered By: Delia Deng on 05-01-2023 Cholesterol in HDL [Mass/Vol] 51 mg/dL 23-92 [facility] Comment on above: HDL CHOL ATP-III CLA SSIFICATION Cardiovascular RiskHDL > or equal to 60 mg/dL LOWHDL < 40 mg/dL HIGH Serum or plasma total choles terol/high density lipoprotein (HDL) cholesterol mass ratOrdered By: Delia Deng on 05-01-2023 Cholesterol.total/Caroline sterol in HDL [Mass ratio] 4.1 {ratio} <5.0 [facility] Sodium [Moles/volume] in Ser um or PlasmaOrdered By: Delia Deng on 05-01-2023 Sodium [Moles/Vol] 140 mmol/L 136-145 [facility] Triglyceride [Mass/volume] i n Serum or PlasmaOrdered By: Delia Deng on 05-01-2023 Triglyceride [Mass/Vol] 216 mg/dL 0-149 [facility] Comment on above: TRIG ATP III CLASSIF ICATIONTRIG less than 150 mg/dL NormalTRIG 150-199 mg/dL Borderline highTRIG 200-500 mg/dL High TRIG greater than 500 mg/dL Very highStandard traceable to the Center for Disease Conrtrol and Prevention (CDC) test method. Urea nitrogen [Mass/volume] in Serum or PlasmaOrdered By: Delia Deng on 05-01-2023 Urea nitrogen [Mass/Vol] 18 mg/dL 7-25 [facility] WBC Auto (Bld) [#/Vol]Ordere d By: Delia Deng on 05-01-2023 WBC (Bld) [#/Vol] 8.2 10*3/uL 3.8-11.6 [facility] EXERCISE STRESS ECG (WITHOUT IMAGING)on 01-25-2023 EXERCISE STRESS ECG (WITHOUT IMAGING) Stress Pipe Cleaner Report: Exercise Stress ECG (without Imaging) [facility] Date of service: 01/25/2023 10:26:21 AM EXPORT LOGISTICS MANAGER Supervising physician: Uday Che MD PATIENT: Name: BONNIE BEAVERS Age: 42 years Gender: F The supervising physician was in the department and immediately available. Final -------- Stress ECG Report: Exercise Stress ECG (without Imaging) [facility] Date of service: 01/25/2023 10:26:21 AM EXPORT LOGISTICS MANAGER Ordering physician: MARYJANE WAITE field talent qualification specialist: Davi Fenton Interpreting physician: Uday Che MD Patient name: BONNIE BEAVERS Age: 42 years Gender: F Height: 170.18 cm BSA: 2.34 m Weight: 115.67 kg BMI: 39.9 kg/m Indication: Encounter for screening for cardiovascular disorders Stress ECG Conclusion: Conclusion: Normal Stress ECG Summary: The patient's resting heart rate was 96 bpm and blood pressure was 152/96 mmHg. The patient exercised according to the Robel protocol. The estimated end-exercise MET level achieved using the FRIEND equation was 6.3, which is within the 10th to 25th percentile for age and sex. The estimated end-exercise MET level achieved using the previous ACSM equation was 7.4. The test was terminated due to general fatigue and patient request and the total exercise time was 6 minutes and 19 seconds. No symptoms provoked during stress. The maximum heart rate was 171 bpm, which is 96% of the predicted heart rate for age. This is an adequate heart rate response. Peak blood pressure was 170/84 mmHg. The double product achieved was [address]. Medications: Last Used LOSARTAN and HCTZ 3 Hours ROSUVASTATIN 3 Hours Resting ECG: Normal Sinus Rhythm and Nonspecific St-T Wave Changes Symptoms at rest: No symptoms Exercise Protocol: Robel Stress Exercise Table: +-----+ +-- ------+ +--- +---+---+----+----+ Stage Speed (MPH) Grade(%) Time (min) HR SYS ALEKSEY RPE METS +-----+ +-- ------+ +--- +---+---+----+----+ 1 1.7 10.0 3.0 141 164 90 12.0 4.2 +-----+ +-- ------+ +--- +---+---+----+----+ 2 2.5 12.0 6.0 169 170 84 16.0 6.1 +-----+ +-- ------+ +--- +---+---+----+----+ +-----+ +-- -------+ +-- -+---+---+----+----+ Speed (MPH) Grade (%) Time (min) HR SYS ALEKSEY RPE METS +-----+ +-- -------+ +-- -+---+---+----+----+ Final 3.4 14.0 6.32 171 170 84 20.0 6.3 +-----+ +-- -------+ +-- -+---+---+----+----+ Recovery Table: +------+ +- ---------+---+---+--- + Stage Speed (MPH) Time (min) HR SYS ALEKSEY +------+ +- ---------+---+---+--- + 1 1.5 1.0 157 162 84 +------+ +- ---------+---+---+--- + 2 1.5 2.0 146 168 88 +------+ +- ---------+---+---+--- + 3 3.0 127 160 92 +------+ +- ---------+---+---+--- + 4 5.0 116 148 94 +------+ +- ---------+---+---+--- + Stress Observations: Resting HR: 96 bpm Peak HR: 171 bpm (96% MPHR) Resting BP: 152 / 96 mmHg Peak BP: 170 / 84 mmHg Total exercise time: 6 minutes 19 seconds METS achieved: 6.3 Chronotropic response index (CRI): 0.92 Heart rate recovery (HRR): 14 bpm Rate Pressure Product (RPP): 01928 Johnson Treadmill Score: 6.3 Stress Exercise Observations: Reason for test termination: general fatigue and patient request, Symptoms during test: No symptoms provoked during stress, Heart rate response: Adequate heart rate response, Normal CRI (>0.8 Not on B Mehrdad) and Normal HRR (>12 or >[address]/EC), Blood pressure response: Normal BP response, ST segment and T wave changes: No ST changes, Johnson Treadmill Score: Normal Johnson Treadmill Score (>=5) and Arrhythmias: No arrhythmias IMPORTANT NOTE REGARDING ESTIMATED MET VALUES: Effective 08/21/2020, the reference equation for determining estimated MET values for [facility] stress tests changed. Comparison of test results before and after that date may show a change in estimated MET values for peak/max exercise despite a test duration that is similar in length. The validity of the new FRIEND equation for exercise METS is endorsed by the [place] [employer]. Reyna P, Genie LA, Ag R, Lawrence J, Rose Marie J. New Generalized Equation for Predicting Maximal Oxygen Uptake (from the Fitness Registry and the Importance of Exercise National Database). The [place] Journal of Cardiology. 2017;120(4):688-692). Final CC [employer] Image : [id number]. [id number] [email or web address] See Link below for Image Normal [facility] CNOVon 12-26-2022 [facility] BONNIE BEAVERS ([id number]) 1980 F Date Time Provider Department 12/26/22 1:00 PM MARYJANE WAITE [facility] During your visit today, we recorded the following information about you: Pulse Blood pressure Weight Height 89/minute 141/91 115.7 kg 1.702 m Maryjane Waite MD 12/26/2022 1:35 PM Signed [facility] [place] SE[facility] OF REGIONAL CARDIOLOGY OUTPATIENT VISIT DATE December 26, 2022 OUTPATIENT VISIT TYPE NEW PRIMARY CARE PHYSICIAN: Delia Deng [address] [place] [address] A written report of the findings and recommendations will be sent to the requesting provider via shared medical record or via [employer]. Patient is being seen at the request of the referring physician for Hyperlipidemia and Hypertension HISTORY OF PRESENT ILLNESS: Ms. Beavers is a 42 year old female with a significant history of hypertension. Hyperlipidemia. COVID-19 infection in March 2022. History of anxiety. Prediabetes. Obesity. No family history of premature coronary artery disease or sudden cardiac . Cardiac work-up includes: None except for EKGs. Has been doing well recently however she mentioned that she cannot lose weight even though she is exercising. However she admitted that her diet is mainly meat and also as she does not do enough physical activity. She does not count her calories. She is trying to increase her vegetable intake however. And she eats a lot of fruits. IMPRESSION: Encounter Diagnosis ICD-10-CM 1. Primary hypertension I10 ECG COMPLETE EXERCISE STRESS ECG (WITHOUT IMAGING) 2. Mixed hyperlipidemia E78.2 ECG COMPLETE EXERCISE STRESS ECG (WITHOUT IMAGING) 3. Anxiety F41.9 ECG COMPLETE EXERCISE STRESS ECG (WITHOUT IMAGING) 4. Pre-diabetes R73.03 EXERCISE STRESS ECG (WITHOUT IMAGING) 5. Obesity (BMI 30-39.9) E66.9 EXERCISE STRESS ECG (WITHOUT IMAGING) PLAN AND RECOMMENDATIONS: Abnormal EKG With a few risk factors of coronary artery disease and increased high-sensitivity CRP. Risk factor modification is alone important. There is no specific treatment which targets the high-sensitivity CRP. Since she had no cardiac work-up in the past we will proceed with a stress testing to rule out myocardial ischemia. Hypertension Excellent control with current medications at home her numbers at home are between 1 10-1 20 systolic over 70 diastolic. Her her blood pressure is always higher when she goes to the doctor's office. Hyperlipidemia LDL goal 100 or less. Her last LDL was checked at 94. Excellent control. Obesity We had a very long discussion about the need for more plant-based diet. Less animal-based products. No dairy products. Reduce calorie intake. Increase level of exercise. REVIEW OF SYSTEMS: Chest pain No Shortness of breath No Bleeding No Dizziness No Syncope No Palpations No 10 systems reviewed and are negative with the exception of pertinent positives described in HPI PHYSICAL EXAMINATION: BP 141/91 Pulse 89 Ht 170.2 cm (5' 7 ) Wt 115.7 kg (255 lb) SpO2 98% BMI 39.94 kg/m? HEENT: normocephalic, EOMI Heart: regular rhythm Lungs: clear to auscultation Abdomen: bowel sounds present Extremities: no edema Musculoskeletal: chest wall nontender Neurological: alert and oriented Psychiatric: appropriate and cooperative Skin: no rash, cellulitis or lesions appreciated CARDIOVASCULAR MEDICINE TESTING: I have personally reviewed ECG, laboratory results, and outside medical records PAST CARDIAC HISTORY: None. History reviewed. No pertinent past medical history. History reviewed. No pertinent surgical history. History reviewed. No pertinent family history. ALLERGIES Not on File CURRENT MEDICATIONS: ALPRAZolam (XANAX) 0.25 mg tablet Take 0.25 mg by mouth. ALPRAZolam (XANAX) 0.5 mg tablet Take by mouth. gabapentin (NEURONTIN) 100 mg capsule Take by mouth q 24 HR. losartan-hydroCHLOROt hiazide (HYZAAR) 100-25 mg per tablet Take 1 tablet by mouth once daily. rosuvastatin (CRESTOR) 10 mg tablet Rosuvastatin Calcium 10 mg TAKE 1 TABLET DAILY Active sertraline (ZOLOFT) 100 mg tablet sertraline (ZOLOFT) 25 mg tablet tiZANidine (ZANAFLEX) 4 mg tablet Take by mouth. coenzyme Q-10 double strength 100 mg/5 ml oral liquid Take 100 mg by mouth once daily. zinc sulfate (ZINC-15 ORAL) Take 15 mg by mouth once daily. cholecalciferol, vitamin D3, (VITAMIN D3 ORAL) Take 1 Drop by mouth once daily. Allergies As of Date: 12/26/2022 (Not on File) Date Reviewed: 12/26/2022 Reviewed by: Maryjane Waite MD - Fully Assessed Reason for Visit: New Cardiac Patient [[id number]] Visit Diagnoses:Primary hypertension [I10] Mixed hyperlipidemia [E78.2] Anxiety [F41.9] Pre-diabetes [R73.03] Obesity (BMI 30-39.9) [E66.9] Order(s):ECG COMPLETE [ECG01] Order #: [id number] (more content not included)... Normal [facility] ECG COMPLETEon 12-26-2022 ECG COMPLETE Ventricular Rate : 8 0 BPM Atrial Rate : 80 BPM P-R Interval : 156 ms QRS Duration : 78 ms Q-T Interval : 380 ms QTC Calculation(Bazett) : 438 ms Calculated P Sterling : 76 degrees Calculated R Sterling : 62 degrees Calculated T Sterling : 59 degrees NORMAL SINUS RHYTHM LOW VOLTAGE QRS, CONSIDER PULMONARY DISEASE, PERICARDIAL EFFUSION, OR NORMAL VARIANT CANNOT EXCLUDE ANTERIOR MYOCARDIAL INFARCTION , AGE UNDETERMINED ABNORMAL ECG Confirmed by MARYJANE WAITE MD ([id number]) on 12/27/2022 7:55:12 AM NAME : BONNIE BEAVERS PID : [id number] : 1980 Gender : Female Race : ORD : [id number] Procedure Date : Dec 26 2022 13:11:40 Edit Date : Dec 27 2022 07:55:13 Diagnosis: NORMAL SINUS RHYTHM LOW VOLTAGE QRS, CONSIDER PULMONARY DISEASE, PERICARDIAL EFFUSION, OR NORMAL VARIANT CANNOT EXCLUDE ANTERIOR MYOCARDIAL INFARCTION , AGE UNDETERMINED ABNORMAL ECG Confirmed by MARYJANE WAITE MD ([id number]) on 12/27/2022 7:55:12 AM Test Reason : Location : 168 : [facility] Overread By : MARYJANE WAITE MD Edited By : MARYJANE WAITE MD Referred By : MARYJANE WAITE Acquired by : , Normal [facility] C reactive protein [Mass/vol ume] in Serum or Plasma by High sensitivity methodOrdered By: Delia Deng on 11-19-2022 CRP High sensitivity method [Mass/Vol] 19.5 mg/L [facility] Comment on above: Cardiovascular Risk Classification (AHA/CDC)hsCRP < 1.0 mg/l low relative risk for CVDhsCRP 1.0-3.0 mg/l average relative risk for CVDhsCRP > 3.0 mg/l high relative risk for CVDhsCRP > 7.5 mg/l active inflammation*Two results two weeks apart and averaged provide a morestable estimate of hsCRP level.*hsCRP levels > 7.5 mg/l may suggest infection that canlimit the use of this marker for estimation of CVD risk. Soheila 11-19-2022 CNPN Telephone (REFPHY) CHARLIEBONNIE Krause ([id number]) 1980 F Date Time Provider Department 11/19/22 NO ONE (HISTORICAL) REFPHY During your visit today, we recorded the following information about you: Tato Rodriguez 11/19/2022 4:12 PM Signed Patient: Bonnie Beavers Date of : 1980 Patient phone number: [phone] Referring Provider for the encounter: Dr Delia Deng Requesting Provider: Cardiology Reason for requesting visit (RFV/signs and symptoms/diagnosis): Hyperlipidemia, Elevated high sensitivity C-Reactive protein Person calling: caregiver: PAKO Return call to: self Medical Records/Insurance Card scanned into [employer]: No Comments: No Allergies As of Date: 11/19/2022 (Not on File) Date Reviewed: Never Reviewed Reason for Visit: External Referrals/resources [909] Problem List As Of Date: 11/19/2022 (None) Encounter Status:Closed by TATO MORRISSEY on 11/19/22 Normal [facility] Albumin [Mass/volume] in Ser um or PlasmaOrdered By: Delia Deng on 11-01-2022 Albumin [Mass/Vol] 4.2 g/dL 3.2-5.5 [facility] Basophils Auto (Bld) [#/Vol] Ordered By: Delia Deng on 11-01-2022 Basophils (Bld) [#/Vol] 0.0 10*3/uL 0.0-0.2 [facility] Basophils/100 WBC Auto (Bld) Ordered By: Delia Deng on 11-01-2022 Basophils/100 WBC (Bld) 0.5 % . [facility] C reactive protein [Mass/vol ume] in Serum or Plasma by High sensitivity methodOrdered By: Delia Deng on 11-01-2022 CRP High sensitivity method [Mass/Vol] 9.9 mg/L [facility] Comment on above: Cardiovascular Risk Classification (AHA/CDC)hsCRP < 1.0 mg/l low relative risk for CVDhsCRP 1.0-3.0 mg/l average relative risk for CVDhsCRP > 3.0 mg/l high relative risk for CVDhsCRP > 7.5 mg/l active inflammation*Two results two weeks apart and averaged provide a morestable estimate of hsCRP level.*hsCRP levels > 7.5 mg/l may suggest infection that canlimit the use of this marker for estimation of CVD risk. Cholesterol [Mass/volume] in Serum or PlasmaOrdered By: Delia Deng on 11-01-2022 Cholesterol [Mass/Vol] 176 mg/dL 140-200 [facility] Comment on above: Chol less than 200 m g/dl low riskChol 201-239 mg/dl borderline riskChol 240 mg/dl and greater high risk Cholesterol in LDL Calc [Mas s/Vol]Ordered By: Delia Deng on 11-01-2022 Cholesterol in LDL [Mass/Vol] 93 mg/dL 0-100 [facility] Comment on above: LDL ATP III CLASSIFI CATIONLDL less than 100 mg/dL OptimalLDL 100-129 mg/dL Near or above optimalLDL 130-159 mg/dL Borderline highLDL 160-189 mg/dL HighLDL greater than 189 mg/dL Very high Cholesterol in VLDL Calc [Ma ss/Vol]Ordered By: Delia Deng on 11-01-2022 Cholesterol in VLDL [Mass/Vol] 37 mg/dL [facility] Creatinine and Glomerular fi ltration rate.predicted panel (S/P/Bld)Ordered By: Delia Deng on 11-01-2022 Creatinine [Mass/Vol] 0.72 mg/dL 0.44-1.03 [facility] Eosinophils Auto (Bld) [#/Vo l]Ordered By: Delia Deng on 11-01-2022 Eosinophils (Bld) [#/Vol] 0.1 10*3/uL 0.0-0.45 [facility] Eosinophils/100 WBC Auto (Bl d)Ordered By: Delia Deng on 11-01-2022 Eosinophils/100 WBC (Bld) 1.3 % . [facility] Erythrocyte distribution wid th Auto (RBC) [Ratio]Ordered By: Delia Deng on 11-01-2022 Erythrocyte distribution width (RBC) [Ratio] 14.0 % 11.9-15.3 [facility] Estimated glomerular filtrat ion rate (GFR) non- AmericanOrdered By: Delia Deng on 11-01-2022 GFR/1.73 sq M.predicted among non-blacks MDRD (S/P/Bld) [Vol rate/Area] > 60 mL/Min [facility] Globulin Calc (S) [Mass/Vol] Ordered By: Delia Deng on 11-01-2022 Globulin (S) [Mass/Vol] 3.2 g/dL [facility] Hematocrit Auto (Bld) [Volum e fraction]Ordered By: Delia Deng on 11-01-2022 Hematocrit (Bld) [Volume fraction] 39.8 % 34.0-46.4 [facility] Hemoglobin [Mass/volume] in BloodOrdered By: Delia Deng on 11-01-2022 Hemoglobin (Bld) [Mass/Vol] 12.9 g/dL 11.8-15.4 [facility] Leukocytes [#/volume] correc heidi for nucleated erythrocytes in Blood by Automated counOrdered By: Delia Deng on 11-01-2022 WBC corrected for nucl RBC Auto (Bld) [#/Vol] 10.5 10*3/uL 3.8-11.6 [facility] Lymphocytes Auto (Bld) [#/Vo l]Ordered By: Delia Deng on 11-01-2022 Lymphocytes (Bld) [#/Vol] 2.3 10*3/uL 1.00-4.8 [facility] Lymphocytes/100 WBC Auto (Bl d)Ordered By: Delia Deng on 11-01-2022 Lymphocytes/100 WBC (Bld) 21.9 % . [facility] MCH Auto (RBC) [Entitic mass ]Ordered By: Delia Deng on 11-01-2022 MCH (RBC) [Entitic mass] 27.9 pg 24.7-34.3 [facility] MCHC Auto (RBC) [Mass/Vol]Or dered By: Delia Deng on 11-01-2022 MCHC (RBC) [Mass/Vol] 32.6 g/dL 32.0-35.0 [facility] MCV Auto (RBC) [Entitic vol] Ordered By: Delia Deng on 11-01-2022 MCV (RBC) [Entitic vol] 85.7 fL 80-100 [facility] Monocytes Auto (Bld) [#/Vol] Ordered By: Delia Deng on 11-01-2022 Monocytes (Bld) [#/Vol] 0.5 10*3/uL 0.0-0.8 [facility] Monocytes/100 WBC Auto (Bld) Ordered By: Delia Deng on 11-01-2022 Monocytes/100 WBC (Bld) 4.5 % . [facility] Neutrophils Auto (Bld) [#/Vo l]Ordered By: Delia Deng on 11-01-2022 Neutrophils (Bld) [#/Vol] 7.6 10*3/uL 1.8-7.7 [facility] Neutrophils/100 WBC Auto (Bl d)Ordered By: Delia Deng on 11-01-2022 Neutrophils/100 WBC (Bld) 71.8 % . [facility] No Panel InformationOrdered By: Delia Deng on 11-01-2022 Estimated GFR () > 60 mL/Min [facility] Comment on above: GFR estimated refere nce range: According to KDOQI guidelines, <60 ml/min/1.73m2 is sufficient to diagnose a patient with chronic kidney disease. Pharmacy Creatinine Clearance (Chem N/A [facility] Nucleated erythrocytes [Pres ence] in Blood by Automated countOrdered By: Delia Deng on 11-01-2022 Nucleated RBC Auto Ql (Bld) 0.0 /100{WBC} 0-0.5 [facility] Platelet mean volume Auto (B ld) [Entitic vol]Ordered By: Delia Deng on 11-01-2022 Platelet mean volume (Bld) [Entitic vol] 7.7 fL 6.3-10.7 [facility] Platelets Auto (Bld) [#/Vol] Ordered By: Delia Deng on 11-01-2022 Platelets (Bld) [#/Vol] 421 10*3/uL 150-450 [facility] Protein [Mass/volume] in Ser um or PlasmaOrdered By: Delia Deng on 11-01-2022 Protein [Mass/Vol] 7.4 g/dL 6.1-7.9 [facility] RBC Auto (Bld) [#/Vol]Ordere d By: Delia Deng on 11-01-2022 RBC (Bld) [#/Vol] 4.64 10*6/uL 3.60-5.00 [facility] Serum or plasma alanine ernst otransferase measurement without P-5'-P (enzymatic activiOrdered By: Delia Deng on 11-01-2022 ALT No additional P-5'-P [Catalytic activity/Vol] 23 U/L 10-60 [facility] Serum or plasma albumin/glob ulin mass ratioOrdered By: Delia Deng on 11-01-2022 Albumin/Globulin [Mass ratio] 1.3 {ratio} [facility] Serum or plasma alkaline jackie sphatase measurement (enzymatic activity/volume)Ordered By: Delia Deng on 11-01-2022 ALP [Catalytic activity/Vol] 65 U/L 32-92 [facility] Serum or plasma anion gap de terminationOrdered By: Delia Deng on 11-01-2022 Anion gap [Moles/Vol] 14.0 mmol/L 6.0-15.0 [facility] Serum or plasma aspartate am inotransferase measurement (enzymatic activity/volume)Ordered By: Delia Deng on 11-01-2022 AST [Catalytic activity/Vol] 19 U/L 10-42 [facility] Serum or plasma calcium suman urement (mass/volume)Ordered By: Delia Deng on 11-01-2022 Calcium [Mass/Vol] 9.7 mg/dL 8.2-10.2 [facility] Serum or plasma chloride irene surement (moles/volume)Ordered By: Delia Deng on 11-01-2022 Chloride [Moles/Vol] 102 mmol/L 95-114 [facility] Serum or plasma glucose suman urement (mass/volume)Ordered By: Delia Deng on 11-01-2022 Glucose [Mass/Vol] 88 mg/dL 70-100 [facility] Comment on above: ADA recommended refe rence rangeRandom Glucose Reference Range is dependent on time and content of last meal. Glucose of more than 200 mg/dL in a nonstressed, ambulatory subject supports the diagnosis of Diabetes Mellitus. Serum or plasma high density lipoprotein (HDL) cholesterol measurementOrdered By: Delia Deng on 11-01-2022 Cholesterol in HDL [Mass/Vol] 46 mg/dL 35-85 [facility] Comment on above: HDL CHOL ATP-III CLA SSIFICATION Cardiovascular RiskHDL > or equal to 60 mg/dL LOWHDL < 40 mg/dL HIGH Serum or plasma potassium me asurement (moles/volume)Ordered By: Delia Deng on 11-01-2022 Potassium [Moles/Vol] 4.1 mmol/L 3.5-5.1 [facility] Serum or plasma sodium measu rement (moles/volume)Ordered By: Delia Deng on 11-01-2022 Sodium [Moles/Vol] 138 mmol/L 136-146 [facility] Serum or plasma total biliru bin measurement (mass/volume)Ordered By: Delia Deng on 11-01-2022 Bilirubin [Mass/Vol] 0.5 mg/dL 0.3-1.2 [facility] Serum or plasma total carbon dioxide measurement (moles/volume)Ordered By: Delia Deng on 11-01-2022 CO2 [Moles/Vol] 26.1 mmol/L 22.0-30.0 [facility] Serum or plasma total choles terol/high density lipoprotein (HDL) cholesterol mass ratOrdered By: Delia Deng on 11-01-2022 Cholesterol.total/Caroline sterol in HDL [Mass ratio] 3.8 {ratio} <5.0 [facility] Serum or plasma urea nitroge n measurement (mass/volume)Ordered By: Delia Deng on 11-01-2022 Urea nitrogen [Mass/Vol] 17 mg/dL 9-23 [facility] TSH DL <= 0.005 mIU/L QnOrde red By: Delia Deng on 11-01-2022 TSH Qn 2.20 m[IU]/L 0.45-5.33 [facility] Triglyceride [Mass/volume] i n Serum or PlasmaOrdered By: Delia Deng on 11-01-2022 Triglyceride [Mass/Vol] 187 mg/dL 35-149 [facility] Comment on above: TRIG ATP III CLASSIF ICATIONTRIG less than 150 mg/dL NormalTRIG 150-199 mg/dL Borderline highTRIG 200-500 mg/dL High TRIG greater than 500 mg/dL Very highStandard traceable to the Center for Disease Conrtrol and Prevention (CDC) test method. WBC Auto (Bld) [#/Vol]Ordere d By: Delia Deng on 11-01-2022 WBC (Bld) [#/Vol] 10.5 10*3/uL 3.8-11.6 [facility] US PELVIS TRANSVAGon 022 US PELVIS TRANSVAG EXAMINATION: US PELVIS TRANSVAG HISTORY: Pelvic and perineal pain COMPARISON: No relevant comparison available. FINDINGS: The uterus is normal in size, contour and echotexture, anteverted. Uterus measures 11.1 x 6.6 x 5.6 cm. No focal mass. The endometrium measures 11 mm, normal The right ovary is normal in appearance measuring 3.6 x 3.2 x 3.1 cm. Normal color and Doppler flow. Areas of anechoic echogenicity, measuring up to 2.4 cm, likely combination of normal follicles and simple cysts The left ovary is normal in appearance measuring 3.8 x 2.6 x 2.1 cm. Normal color and Doppler flow. IMPRESSION: Right ovarian simple cyst measuring 2.4 cm Electronically authenticated by: DELIA RODRIGUEZ Date: 2022-10-31 16:25 Normal [facility] Creatinine and Glomerular fi ltration rate.predicted panel (S/P/Bld)Ordered By: Delia Deng on 09-01-2022 Creatinine [Mass/Vol] 0.71 mg/dL 0.44-1.03 [facility] Estimated glomerular filtrat ion rate (GFR) non- AmericanOrdered By: Delia Deng on 09-01-2022 GFR/1.73 sq M.predicted among non-blacks MDRD (S/P/Bld) [Vol rate/Area] > 60 mL/Min [facility] No Panel InformationOrdered By: Delia Deng on 09-01-2022 Estimated GFR () > 60 mL/Min [facility] Comment on above: GFR estimated refere nce range: According to KDOQI guidelines, <60 ml/min/1.73m2 is sufficient to diagnose a patient with chronic kidney disease. Pharmacy Creatinine Clearance (Chem N/A [facility] Serum or plasma anion gap de terminationOrdered By: Delia Deng on 09-01-2022 Anion gap [Moles/Vol] 16.2 mmol/L 6.0-15.0 [facility] Serum or plasma calcium suman urement (mass/volume)Ordered By: Delia Deng on 09-01-2022 Calcium [Mass/Vol] 9.8 mg/dL 8.2-10.2 [facility] Serum or plasma chloride ierne surement (moles/volume)Ordered By: Delia Deng on 09-01-2022 Chloride [Moles/Vol] 102 mmol/L 95-114 [facility] Serum or plasma glucose suman urement (mass/volume)Ordered By: Delia Deng on 09-01-2022 Glucose [Mass/Vol] 96 mg/dL 70-100 [facility] Comment on above: ADA recommended refe rence rangeRandom Glucose Reference Range is dependent on time and content of last meal. Glucose of more than 200 mg/dL in a nonstressed, ambulatory subject supports the diagnosis of Diabetes Mellitus. Serum or plasma potassium me asurement (moles/volume)Ordered By: Delia Deng on 09-01-2022 Potassium [Moles/Vol] 4.0 mmol/L 3.5-5.1 [facility] Serum or plasma sodium measu rement (moles/volume)Ordered By: Delia Deng on 09-01-2022 Sodium [Moles/Vol] 140 mmol/L 136-146 [facility] Serum or plasma total carbon dioxide measurement (moles/volume)Ordered By: Delia Deng on 09-01-2022 CO2 [Moles/Vol] 25.8 mmol/L 22.0-30.0 [facility] Serum or plasma urea nitroge n measurement (mass/volume)Ordered By: Delia Deng on 09-01-2022 Urea nitrogen [Mass/Vol] 20 mg/dL 9-23 [facility] MG MAMM SCREEN 3D BRODY CADon 05-25-2022 MG MAMM SCREEN 3D BRODY CAD Patient: BONNIE BEAVERS Exam Date: 05/25/2022 : 1980 Gender:F Ordering : JUNIOR ZAMBRANO . Admission #: [id number] Family : Order #: [id number] CLICK HERE TO VIEW EXAM RADIOLOGY REPORT PROCEDURE: MAMMOGRAM SCREENING 3D BILATERAL CAD COMPARISON: MG MAMM SCREEN BRODY W CAD, 11/01/2020. MG MAMM BRODY DIAG W CAD DIG, 04/22/2015. INDICATIONS: Screening mammography Calculator Name NCI Breast Cancer Risk Assessment Tool 5 Year Breast Cancer Risk 1.20% Lifetime Breast Cancer Risk 14.60% Personal Breast Cancer No Personal Ovarian Cancer No Treatments None Family Cancers Aunt-maternal with breast cancer at age 53; Grandmother-paternal with colon cancer at age 65; Grandfather-paternal with prostate cancer at age 70. LOCATION: [facility] BREAST COMPOSITION: Extremely dense, which lowers the sensitivity of mammography. FINDINGS: DIAGNOSTIC CATEGORY 1--NEGATIVE. RIGHT BREAST: No significant suspicious finding. No significant change has occurred. LEFT BREAST: No significant suspicious finding. No significant change has occurred. RECOMMENDATIONS: ROUTINE MAMMOGRAM AND CLINICAL EVALUATION IN 12 MONTHS. PLEASE NOTE: A NORMAL MAMMOGRAM DOES NOT EXCLUDE THE POSSIBILITY OF BREAST CANCER. A CLINICALLY SUSPICIOUS PALPABLE LUMP SHOULD BE BIOPSIED. Dictated by: Mariya Wellington M.D. on 05/25/2022 at 11:56 Approved by: Mariya Wellington M.D. on 05/25/2022 at 12:01 Normal [facility] XR KNEE RT 4V or >on 022 XR KNEE RT 4V or > EXAM: Right knee. HISTORY: . Pain of right knee joint . COMPARISON: None. TECHNIQUE: 4 views FINDINGS: No acute bony or joint abnormality of the right knee is noted. Surrounding soft tissues are unremarkable. Need joint is well-maintained. IMPRESSION: Negative right knee. Electronically authenticated by: DELIA GALARZA Date: 2022-05-25 10:35 Normal [facility] A1C HEMOGLOBINon 04-05-2022 HbA1c (Bld) [Mass fraction] 5.8 % [employer] Other Albumin [Mass/volume] in Ser um or PlasmaOrdered By: Delia Deng on 04-05-2022 Albumin [Mass/Vol] 3.9 g/dL 3.2-5.5 [facility] Basophils Auto (Bld) [#/Vol] Ordered By: Delia Deng on 04-05-2022 Basophils (Bld) [#/Vol] 0.0 10*3/uL 0.0-0.2 [facility] Basophils/100 WBC Auto (Bld) Ordered By: Delia Deng on 04-05-2022 Basophils/100 WBC (Bld) 0.6 % [facility] Blood hemoglobin measurement (mass/volume)Ordered By: Delia Deng on 04-05-2022 Hemoglobin (Bld) [Mass/Vol] 13.6 g/dL 11.8-15.4 [facility] Blood leukocytes automated c ount (number/volume)Ordered By: Delia Deng on 04-05-2022 WBC (Bld) [#/Vol] 6.6 10*3/uL 4.5-11.0 [facility] Cholesterol [Mass/volume] in Serum or PlasmaOrdered By: Delia Deng on 04-05-2022 Cholesterol [Mass/Vol] 179 mg/dL 140-200 [facility] Comment on above: Chol less than 200 m g/dl low risk Chol 201-239 mg/dl borderline risk Chol 240 mg/dl and greater high risk Cholesterol in LDL Calc [Mas s/Vol]Ordered By: Delia Deng on 04-05-2022 Cholesterol in LDL [Mass/Vol] 92 mg/dL 0-100 [facility] Comment on above: LDL ATP III CLASSIFI CATION LDL less than 100 mg/dL Optimal LDL 100-129 mg/dL Near or above optimal LDL 130-159 mg/dL Borderline high LDL 160-189 mg/dL High LDL greater than 189 mg/dL Very high Cholesterol in VLDL Calc [Ma ss/Vol]Ordered By: Delia Deng on 04-05-2022 Cholesterol in VLDL [Mass/Vol] 43 mg/dL [facility] Creatinine and Glomerular fi ltration rate.predicted panel (S/P/Bld)Ordered By: Delia Deng on 04-05-2022 Creatinine [Mass/Vol] 0.66 mg/dL 0.44-1.03 [facility] Eosinophils Auto (Bld) [#/Vo l]Ordered By: Delia Deng on 04-05-2022 Eosinophils (Bld) [#/Vol] 0.1 10*3/uL 0.0-0.45 [facility] Eosinophils/100 WBC Auto (Bl d)Ordered By: Delia Deng on 04-05-2022 Eosinophils/100 WBC (Bld) 1.2 % [facility] Erythrocyte distribution wid th Auto (RBC) [Ratio]Ordered By: Delia Deng on 04-05-2022 Erythrocyte distribution width (RBC) [Ratio] 14.0 % 11.9-15.3 [facility] Estimated glomerular filtrat ion rate (GFR) non- AmericanOrdered By: Delia Deng on 04-05-2022 GFR/1.73 sq M.predicted among non-blacks MDRD (S/P/Bld) [Vol rate/Area] > 60 mL/Min [facility] Globulin Calc (S) [Mass/Vol] Ordered By: Delia Deng on 04-05-2022 Globulin (S) [Mass/Vol] 3.8 g/dL [facility] HbA1c (Bld) [Mass fraction]o n 04-05-2022 A1C HEMOGLOBIN [employer] Other Hematocrit Auto (Bld) [Volum e fraction]Ordered By: Delia Deng on 04-05-2022 Hematocrit (Bld) [Volume fraction] 41.0 % 34.0-46.4 [facility] Laboratory - Hematology and Cell countsOrdered By: Delia Deng on 04-05-2022 Nucleated RBC/100 WBC (Bld) [Ratio] 0.0 % 0-0.5 [facility] Lymphocytes Auto (Bld) [#/Vo l]Ordered By: Delia Deng on 04-05-2022 Lymphocytes (Bld) [#/Vol] 1.8 10*3/uL 1.00-4.8 [facility] Lymphocytes/100 WBC Auto (Bl d)Ordered By: Delia Deng on 04-05-2022 Lymphocytes/100 WBC (Bld) 26.6 % [facility] MCH Auto (RBC) [Entitic mass ]Ordered By: Delia Deng on 04-05-2022 MCH (RBC) [Entitic mass] 28.3 pg 24.7-34.3 [facility] MCHC Auto (RBC) [Mass/Vol]Or dered By: Delia Deng on 04-05-2022 MCHC (RBC) [Mass/Vol] 33.1 g/dL 32.0-35.0 [facility] MCV Auto (RBC) [Entitic vol] Ordered By: Delia Deng on 04-05-2022 MCV (RBC) [Entitic vol] 85.7 fL 80-100 [facility] Monocytes Auto (Bld) [#/Vol] Ordered By: Delia Deng on 04-05-2022 Monocytes (Bld) [#/Vol] 0.4 10*3/uL 0.0-0.8 [facility] Monocytes/100 WBC Auto (Bld) Ordered By: Delia Deng on 04-05-2022 Monocytes/100 WBC (Bld) 5.3 % [facility] Neutrophils Auto (Bld) [#/Vo l]Ordered By: Delia Deng on 04-05-2022 Neutrophils (Bld) [#/Vol] 4.4 10*3/uL 1.8-7.7 [facility] Neutrophils/100 WBC Auto (Bl d)Ordered By: Delia Deng on 04-05-2022 Neutrophils/100 WBC (Bld) 66.3 % [facility] No Panel InformationOrdered By: Delia Deng on 04-05-2022 Estimated GFR () > 60 mL/Min [facility] Comment on above: GFR estimated refere nce range: According to KDOQI guidelines, <60 ml/min/1.73m2 is sufficient to diagnose a patient with chronic kidney disease. Pharmacy Creatinine Clearance (Chem N/A [facility] Platelet mean volume Auto (B ld) [Entitic vol]Ordered By: Delia Deng on 04-05-2022 Platelet mean volume (Bld) [Entitic vol] 8.1 fL 6.3-10.7 [facility] Platelets Auto (Bld) [#/Vol] Ordered By: Delia Deng on 04-05-2022 Platelets (Bld) [#/Vol] 428 10*3/uL 150-450 [facility] Protein [Mass/volume] in Ser um or PlasmaOrdered By: Delia Deng on 04-05-2022 Protein [Mass/Vol] 7.7 g/dL 6.1-7.9 [facility] RBC Auto (Bld) [#/Vol]Ordere d By: Delia Deng on 04-05-2022 RBC (Bld) [#/Vol] 4.79 10*6/uL 3.60-5.00 [facility] Serum or plasma C reactive p rotein measurement (mass/volume)Ordered By: Delia Deng on 04-05-2022 CRP [Mass/Vol] 0.8 mg/dL 0.0-1.0 [facility] Serum or plasma alanine ernst otransferase measurement without P-5'-P (enzymatic activiOrdered By: Delia Deng on 04-05-2022 ALT No additional P-5'-P [Catalytic activity/Vol] 22 U/L 10-60 [facility] Serum or plasma albumin/glob ulin mass ratioOrdered By: Delia Deng on 04-05-2022 Albumin/Globulin [Mass ratio] 1.0 {ratio} [facility] Serum or plasma alkaline jackie sphatase measurement (enzymatic activity/volume)Ordered By: Delia Deng on 04-05-2022 ALP [Catalytic activity/Vol] 66 U/L 32-92 [facility] Serum or plasma aspartate am inotransferase measurement (enzymatic activity/volume)Ordered By: Delia Deng on 04-05-2022 AST [Catalytic activity/Vol] 19 U/L 10-42 [facility] Serum or plasma calcium suman urement (mass/volume)Ordered By: Delia Deng on 04-05-2022 Calcium [Mass/Vol] 9.4 mg/dL 8.2-10.2 [facility] Serum or plasma chloride irene surement (moles/volume)Ordered By: Delia Deng on 04-05-2022 Chloride [Moles/Vol] 101 mmol/L 95-114 [facility] Serum or plasma glucose suman urement (mass/volume)Ordered By: Delia Deng on 04-05-2022 Glucose [Mass/Vol] 88 mg/dL 70-100 [facility] Comment on above: ADA recommended refe rence range Random Glucose Reference Range is dependent on time and content of last meal. Glucose of more than 200 mg/dL in a nonstressed, ambulatory subject supports the diagnosis of Diabetes Mellitus. Serum or plasma high density lipoprotein (HDL) cholesterol measurementOrdered By: Delia Deng on 04-05-2022 Cholesterol in HDL [Mass/Vol] 44 mg/dL 35-85 [facility] Comment on above: HDL CHOL ATP-III CLA SSIFICATION Cardiovascular Risk HDL > or equal to 60 mg/dL LOW HDL < 40 mg/dL HIGH Serum or plasma potassium me asurement (moles/volume)Ordered By: Delia Deng on 04-05-2022 Potassium [Moles/Vol] 3.8 mmol/L 3.5-5.1 [facility] Serum or plasma sodium measu rement (moles/volume)Ordered By: Delia Deng on 04-05-2022 Sodium [Moles/Vol] 137 mmol/L 136-146 [facility] Serum or plasma total biliru bin measurement (mass/volume)Ordered By: Delia Deng on 04-05-2022 Bilirubin [Mass/Vol] 0.4 mg/dL 0.3-1.2 [facility] Serum or plasma total carbon dioxide measurement (moles/volume)Ordered By: Delia Deng on 04-05-2022 CO2 [Moles/Vol] 23.3 mmol/L 22.0-30.0 [facility] Serum or plasma total choles terol/high density lipoprotein (HDL) cholesterol mass ratOrdered By: Delia Deng on 04-05-2022 Cholesterol.total/Caroline sterol in HDL [Mass ratio] 4.1 {ratio} [facility] Serum or plasma urea nitroge n measurement (mass/volume)Ordered By: Delia Deng on 04-05-2022 Urea nitrogen [Mass/Vol] 14 mg/dL 9-23 [facility] Triglyceride [Mass/volume] i n Serum or PlasmaOrdered By: Delia Deng on 04-05-2022 Triglyceride [Mass/Vol] 217 mg/dL 35-149 [facility] Comment on above: TRIG ATP III CLASSIF ICATION TRIG less than 150 mg/dL Normal TRIG 150-199 mg/dL Borderline high TRIG 200-500 mg/dL High TRIG greater than 500 mg/dL Very high Standard traceable to the Center for Disease Conrtrol and Prevention (CDC) test method. Vital Signs Date Time Vital Sign Value Performing Clinician Facility 08-31-2024 15:18-0400 Body height 169.55 cm DO Delia Deng Work Phone: [facility] 08-31-2024 15:18-0400 Body mass index (BMI) [Ratio] 41.1 kg/m2 DO Delia Girbrigido Work Phone: [facility] 08-31-2024 15:18-0400 Body temperature 97.5 [degF] DO Delia Girvin Work Phone: [facility] 08-31-2024 15:18-0400 Body weight 118.38 kg DO Delia Girbrigido Work Phone: [facility] 08-31-2024 15:18-0400 Diastolic blood pressure 82 mm[Hg] DO Delia Girbrigido Work Phone: [facility] 08-31-2024 15:18-0400 Heart rate 87 /min DO Delia Girbrigido Work Phone: [facility] 08-31-2024 15:18-0400 SaO2% (BldA) [Mass fraction] 97 % DO Delia Deng Work Phone: [facility] 08-31-2024 15:18-0400 Systolic blood pressure 120 mm[Hg] DO Delia Deng Work Phone: [facility] 02-17-2024 12:24-0400 Body height 169.55 cm DO Delia Deng Work Phone: [facility] 02-17-2024 12:24-0400 Body mass index (BMI) [Ratio] 42.1 kg/m2 DO Delia Girbrigido Work Phone: [facility] 02-17-2024 12:24-0400 Body temperature 98.4 [degF] DO Delia Girbrigido Work Phone: [facility] 02-17-2024 12:24-0400 Body weight 121.1 kg DO Delia Girbrigido Work Phone: [facility] 02-17-2024 12:24-0400 Diastolic blood pressure 80 mm[Hg] DO Delia Girvin Work Phone: [facility] 02-17-2024 12:24-0400 Heart rate 82 /min DO Delia Deng Work Phone: [facility] 02-17-2024 12:24-0400 Respiratory rate 18 /min DO Delia Deng Work Phone: [facility] 02-17-2024 12:24-0400 SaO2% (BldA) [Mass fraction] 98 % DO Delia Deng Work Phone: [facility] 02-17-2024 12:24-0400 Systolic blood pressure 124 mm[Hg] DO Delia Deng Work Phone: [facility] 11-27-2023 16:00-0500 Body height 169.55 cm Reji Alcantara Other [facility] 11-27-2023 16:00-0500 Body mass index (BMI) [Ratio] 40.08 kg/m2 Reji Maricruz Other [facility] [employer] Other 11-27-2023 16:00-0500 Body weight 115.21 kg Reji Maricruz Other [facility] 09-25-2023 11:00-0500 Body height 169.55 cm Reji Maricruz Other [employer] Other 09-25-2023 11:00-0500 Body mass index (BMI) [Ratio] 40.52 kg/m2 Reji Maricruz Other [employer] Other 09-25-2023 11:00-0500 Body weight 116.48 kg Reji Maricruz Other [employer] Other 09-25-2023 11:00-0500 Diastolic blood pressure 88 mm[Hg] Rejikj Rosendiff Other [employer] Other 09-25-2023 11:00-0500 Respiratory rate 18 /min Reji Maricruz Other [employer] Other 09-25-2023 11:00-0500 SaO2% (BldA) [Mass fraction] 99 % Reji Alcantara Other [employer] Other 09-25-2023 11:00-0500 Systolic blood pressure 127 mm[Hg] Reji Alcantara Other [employer] Other 08-07-2023 15:45-0400 Body height 169.55 cm Reji Alcantara Other [employer] Other 08-07-2023 15:45-0400 Body mass index (BMI) [Ratio] 40.71 kg/m2 Reji Alcantara Other [employer] Other 08-07-2023 15:45-0400 Body weight 117.03 kg Reji Alcantara Other [employer] Other 08-05-2023 17:00-0400 Body height 169.55 cm Delia Deng Other [employer] Other 08-05-2023 17:00-0400 Body mass index (BMI) [Ratio] 41.18 kg/m2 Delia Deng Other [employer] Other 08-05-2023 17:00-0400 Body temperature 98 [degF] Delia Deng Other [employer] Other 08-05-2023 17:00-0400 Body weight 118.39 kg Delia Deng Other [employer] Other 08-05-2023 17:00-0400 Diastolic blood pressure 82 mm[Hg] Delia Sowmya Other [employer] Other 08-05-2023 17:00-0400 Respiratory rate 18 /min Delia Deng Other [employer] Other 08-05-2023 17:00-0400 SaO2% (BldA) [Mass fraction] 97 % Delia Sowmya Other [employer] Other 08-05-2023 17:00-0400 Systolic blood pressure 126 mm[Hg] Delia Sowmya Other [employer] Other 06-20-2023 10:00-0400 Body height 169.55 cm Reji Alcantara Other [employer] Other 06-20-2023 10:00-0400 Body mass index (BMI) [Ratio] 41.34 kg/m2 Reji Alcantara Other [employer] Other 06-20-2023 10:00-0400 Body weight 118.84 kg Reji Alcantara Other [employer] Other 06-20-2023 10:00-0400 Diastolic blood pressure 89 mm[Hg] Reji Alcantara Other [employer] Other 06-20-2023 10:00-0400 Respiratory rate 18 /min Reji Alcantara Other [employer] Other 06-20-2023 10:00-0400 SaO2% (BldA) [Mass fraction] 97 % Reji Alcantara Other [employer] Other 06-20-2023 10:00-0400 Systolic blood pressure 126 mm[Hg] Reji Alcantara Other [employer] Other 05-02-2023 12:30-0400 Body height 169.55 cm Delia Deng Other [employer] Other 01-28-2023 18:40-0400 Body height 169.55 cm Delia Deng Other [employer] Other 01-28-2023 18:40-0400 Body mass index (BMI) [Ratio] 41.65 kg/m2 Delia Deng Other [employer] Other 01-28-2023 18:40-0400 Body temperature 97.3 [degF] Delia Deng Other [employer] Other 01-28-2023 18:40-0400 Body weight 119.75 kg Delia Deng Other [employer] Other 01-28-2023 18:40-0400 Diastolic blood pressure 86 mm[Hg] Delia Deng Other [employer] Other 01-28-2023 18:40-0400 Respiratory rate 18 /min Delia Deng Other [employer] Other 01-28-2023 18:40-0400 SaO2% (BldA) [Mass fraction] 98 % Delia Deng Other [employer] Other 01-28-2023 18:40-0400 Systolic blood pressure 132 mm[Hg] Delia Deng Other [employer] Other 12-26-2022 13:07-0500 Body height 170.2 cm Maryjane Waite MD Work Phone: [facility] 12-26-2022 13:07-0500 Body weight 115.67 kg Maryjane Waite MD Work Phone: [facility] 12-26-2022 13:07-0500 Diastolic blood pressure 91 mm[Hg] Maryjane Waite MD Work Phone: [facility] 12-26-2022 13:07-0500 Heart rate 89 /min Maryjane Waite MD Work Phone: [facility] 12-26-2022 13:07-0500 SaO2% (BldA) [Mass fraction] 98 % Maryjane Waite MD Work Phone: [facility] 12-26-2022 13:07-0500 Systolic blood pressure 141 mm[Hg] Maryjane Waite MD Work Phone: [facility] 09-26-2022 13:45-0500 Body height 169.55 cm Reji Alcantara Other [employer] Other 09-26-2022 13:45-0500 Body mass index (BMI) [Ratio] 40.31 kg/m2 Reji Alcantara Other [employer] Other 09-26-2022 13:45-0500 Body weight 115.89 kg Reji Alcantara Other [employer] Other 09-26-2022 13:45-0500 Diastolic blood pressure 94 mm[Hg] Reji Alcantara Other [employer] Other 09-26-2022 13:45-0500 Respiratory rate 18 /min Reji Alcantara Other [employer] Other 09-26-2022 13:45-0500 SaO2% (BldA) [Mass fraction] 97 % Reji Alcantara Other [employer] Other 09-26-2022 13:45-0500 Systolic blood pressure 135 mm[Hg] Reji Alcantara Other [employer] Other 08-14-2022 16:45-0400 Body height 169.55 cm Reji Alcantara Other [employer] Other 08-14-2022 16:45-0400 Body mass index (BMI) [Ratio] 40.39 kg/m2 Reji Alcantara Other [employer] Other 08-14-2022 16:45-0400 Body weight 116.12 kg Reji Alcantara Other [employer] Other 08-13-2022 10:50-0400 Body height 169.55 cm Delia Deng Other [employer] Other 08-13-2022 10:50-0400 Body mass index (BMI) [Ratio] 41.18 kg/m2 Delia Deng Other [employer] Other 08-13-2022 10:50-0400 Body temperature 97.3 [degF] Delia Deng Other [employer] Other 08-13-2022 10:50-0400 Body weight 118.39 kg Delia Deng Other [employer] Other 08-13-2022 10:50-0400 Diastolic blood pressure 98 mm[Hg] Delia Deng Other [employer] Other 08-13-2022 10:50-0400 Respiratory rate 18 /min Delia eDng Other [employer] Other 08-13-2022 10:50-0400 SaO2% (BldA) [Mass fraction] 99 % Delia Sowmya Other [employer] Other 08-13-2022 10:50-0400 Systolic blood pressure 130 mm[Hg] Delia Sowmya Other [employer] Other 07-16-2022 18:40-0400 Body height 169.55 cm Delia Deng Other [employer] Other 06-20-2022 13:45-0400 Body height 169.55 cm Reji Alcantara Other [employer] Other 06-20-2022 13:45-0400 Body mass index (BMI) [Ratio] 41.48 kg/m2 Reji Alcantara Other [employer] Other 06-20-2022 13:45-0400 Body weight 119.25 kg Reji Alcantara Other [employer] Other 06-20-2022 13:45-0400 Diastolic blood pressure 91 mm[Hg] Reji Alcantara Other [employer] Other 06-20-2022 13:45-0400 Respiratory rate 18 /min Reji Alcantara Other [employer] Other 06-20-2022 13:45-0400 SaO2% (BldA) [Mass fraction] 99 % Reji Alcantara Other [employer] Other 06-20-2022 13:45-0400 Systolic blood pressure 143 mm[Hg] Reji Alcantara Other [employer] Other 05-25-2022 09:10-0400 Body height 169.55 cm Delia Deng Other [employer] Other 05-25-2022 09:10-0400 Body mass index (BMI) [Ratio] 41.58 kg/m2 Delia Deng Other [employer] Other 05-25-2022 09:10-0400 Body temperature 97.7 [degF] Delia Deng Other [employer] Other 05-25-2022 09:10-0400 Body weight 119.52 kg Delia Deng Other [employer] Other 05-25-2022 09:10-0400 Diastolic blood pressure 86 mm[Hg] Delia Sowmya Other [employer] Other 05-25-2022 09:10-0400 Respiratory rate 18 /min Delia Deng Other [employer] Other 05-25-2022 09:10-0400 SaO2% (BldA) [Mass fraction] 98 % Delia Deng Other [employer] Other 05-25-2022 09:10-0400 Systolic blood pressure 138 mm[Hg] Delia Sowmya Other [employer] Other 05-17-2022 11:45-0400 Body height 169.55 cm Reji Alcantara Other [employer] Other 05-17-2022 11:45-0400 Body mass index (BMI) [Ratio] 42.1 kg/m2 Reji Alcantara Other [employer] Other 05-17-2022 11:45-0400 Body weight 121.02 kg Reji Alcantara Other [employer] Other 05-17-2022 11:45-0400 Diastolic blood pressure 82 mm[Hg] Reji Alcantara Other [employer] Other 05-17-2022 11:45-0400 Respiratory rate 18 /min Reji Rosendiff Other [employer] Other 05-17-2022 11:45-0400 SaO2% (BldA) [Mass fraction] 100 % Reji Rosendiff Other [employer] Other 05-17-2022 11:45-0400 Systolic blood pressure 116 mm[Hg] Reji Rosendiff Other [employer] Other 04-26-2022 14:00-0400 Body height 169.55 cm Luciana Fitt Other [employer] Other 04-26-2022 14:00-0400 Body mass index (BMI) [Ratio] 42.79 kg/m2 Luciana Fitt Other [employer] Other 04-26-2022 14:00-0400 Body weight 123.02 kg Luciana Fitt Other [employer] Other 04-09-2022 15:00-0400 Body height 169.55 cm Delia Deng Other [employer] Other 04-09-2022 15:00-0400 Body mass index (BMI) [Ratio] 42.6 kg/m2 Delia Deng Other [employer] Other 04-09-2022 15:00-0400 Body temperature 96.9 [degF] Delia Deng Other [employer] Other 04-09-2022 15:00-0400 Body weight 122.47 kg Delia Deng Other [employer] Other 04-09-2022 15:00-0400 Diastolic blood pressure 92 mm[Hg] Delia Deng Other [employer] Other 04-09-2022 15:00-0400 Respiratory rate 18 /min Delia Deng Other [employer] Other 04-09-2022 15:00-0400 SaO2% (BldA) [Mass fraction] 96 % Delia Deng Other [employer] Other 04-09-2022 15:00-0400 Systolic blood pressure 148 mm[Hg] Delia Deng Other [employer] Other 04-05-2022 12:30-0400 Body height 169.55 cm Reji Alcantara Other [employer] Other 04-05-2022 12:30-0400 Body mass index (BMI) [Ratio] 42.43 kg/m2 Reji Alcantara Other [employer] Other 04-05-2022 12:30-0400 Body weight 121.97 kg Reji Alcantara Other [employer] Other 04-05-2022 12:30-0400 Diastolic blood pressure 94 mm[Hg] Reji Alcantara Other [employer] Other 04-05-2022 12:30-0400 Respiratory rate 18 /min Reji Alcantara Other [employer] Other 04-05-2022 12:30-0400 SaO2% (BldA) [Mass fraction] 99 % Reji Alcantara Other [employer] Other 04-05-2022 12:30-0400 Systolic blood pressure 144 mm[Hg] Reji Alcantara Other [employer] Other 10-24-2021 16:45-0500 Body height 169.55 cm Reji Alcantara Other [employer] Other 10-24-2021 16:45-0500 Body mass index (BMI) [Ratio] 40.42 kg/m2 Reji Alcantara Other [employer] Other 10-24-2021 16:45-0500 Body weight 116.21 kg Reji Alacntara Other [employer] Other 10-24-2021 16:45-0500 Diastolic blood pressure 88 mm[Hg] Reji Alcantara Other [employer] Other 10-24-2021 16:45-0500 Respiratory rate 18 /min Reji Alcantara Other [employer] Other 10-24-2021 16:45-0500 SaO2% (BldA) [Mass fraction] 99 % Reji Rosendiff Other [employer] Other 10-24-2021 16:45-0500 Systolic blood pressure 152 mm[Hg] Reji Rosendiff Other [employer] Other 10-04-2021 16:45-0500 Body height 169.55 cm Luciana Carmen Other [employer] Other 09-18-2021 18:40-0500 Body height 169.55 cm Delia Deng Other [employer] Other 09-18-2021 18:40-0500 Body mass index (BMI) [Ratio] 39.6 kg/m2 Delia Deng Other [employer] Other 09-18-2021 18:40-0500 Body temperature 97.5 [degF] Delia Deng Other [employer] Other 09-18-2021 18:40-0500 Body weight 113.85 kg Delia Deng Other [employer] Other 09-18-2021 18:40-0500 Diastolic blood pressure 88 mm[Hg] Delia Deng Other [employer] Other 09-18-2021 18:40-0500 Respiratory rate 18 /min Delia Deng Other [employer] Other 09-18-2021 18:40-0500 SaO2% (BldA) [Mass fraction] 98 % Delia Deng Other [employer] Other 09-18-2021 18:40-0500 Systolic blood pressure 138 mm[Hg] Delia Deng Other [employer] Other Encounters Encounter Date Encounter Type Care Provider Facility Start: 04-21-2025 ambulatory TROUBLE SHOOTER Junior L Kenya [facility] ity:[facility] [place] Start: 03-24-2025 End: 03-24-2025 ambulatory TROUBLE SHOOTER Junior L [place] Facility:[facility] Start: 02-15-2025 End: 02-15-2025 Lab Drop off Junior L Kenya [facility] Start: 02-15-2025 End: 02-15-2025 ambulatory TROUBLE SHOOTER Junior L [place] Facility:[facility] Start: 12-07-2024 End: 12-07-2024 ambulatory [facility] Work Phone: Start: 12-07-2024 End: 12-07-2024 Patient encounter procedure [facility] [place] Work Phone: Start: 11-11-2024 End: 11-11-2024 ambulatory TROUBLE SHOOTER Junior L [place] Facility:[facility] Start: 08-31-2024 Patient encounter status DO Delia Deng Work Phone: [facility] Start: 08-31-2024 End: 08-31-2024 ambulatory DO Delia Deng Work Phone: [facility] Work Phone: Start: 08-31-2024 End: 08-31-2024 Encounter for general adult medical examination without abnormal findings DO Delia Deng Work Phone: [facility] Start: 08-31-2024 End: 08-31-2024 Patient encounter procedure DO Delia Deng Work Phone: [facility] Physician [facility] [place] Work Phone: Start: 08-26-2024 End: 08-26-2024 Patient encounter procedure DO Delia Deng Work Phone: [facility] Start: 08-26-2024 End: 08-26-2024 ambulatory DO Delia Deng Work Phone: [facility] Work Phone: Start: 06-16-2024 End: 06-16-2024 ambulatory TROUBLE SHOOTER Junior L [place] Facility:[facility] Start: 06-03-2024 End: 06-03-2024 ambulatory TROUBLE SHOOTER Junior L [place] Facility:[facility] L[facility] mar[facility] Start: 05-14-2024 End: 05-14-2024 ambulatory [facility] Work Phone: Start: 05-14-2024 End: 05-14-2024 Patient encounter procedure [facility] [place] Work Phone: Start: 04-15-2024 End: 04-15-2024 ambulatory DAVID PRYOR Not Available Start: 02-17-2024 End: 02-17-2024 ambulatory DO Delia Deng Work Phone: [facility] Work Phone: Start: 02-17-2024 End: 02-17-2024 Patient encounter procedure DO Delia Deng Work Phone: [facility] Physician [facility] [place] Work Phone: Start: 01-31-2024 End: 01-31-2024 Patient encounter procedure DO Delia Deng Work Phone: [facility] [place] Work Phone: Start: 01-31-2024 End: 01-31-2024 ambulatory Delia Deng Facility:[facility] Start: 11-27-2023 Registered Recurring DO Delia Deng Work Phone: [facility] Work Phone: Start: 11-27-2023 (Televisit) Televisit Reji Alcantara [facility] Start: 11-27-2023 End: 11-27-2023 ambulatory Delia Deng [facility] [employer] Other Start: 11-27-2023 End: 11-27-2023 Patient encounter procedure DO Delia Deng Work Phone: [facility]- Start: 11-18-2023 End: 11-18-2023 ambulatory Delia Deng Other [employer] Other Start: 11-18-2023 Telephone encounter Delia Deng [facility] Start: 10-07-2023 End: 10-07-2023 ambulatory Delia Deng Other [employer] Other Start: 10-07-2023 Telephone encounter Delia Deng [facility] Start: 09-25-2023 End: 09-25-2023 ambulatory Reji Alcantara Other [employer] Other Start: 09-25-2023 Follow-up encounter Reji ascencio [facility] Start: 09-21-2023 End: 09-21-2023 Patient encounter procedure DO Delia Deng Work Phone: [facility] [place] Work Phone: Start: 09-21-2023 End: 09-21-2023 ambulatory DO Delia Deng Work Phone: [facility] Work Phone: Start: 08-07-2023 Registered Recurring DO Delia Deng Work Phone: [facility] Work Phone: Start: 08-07-2023 (Televisit) Televisit Reji Alcantara [facility] Start: 08-07-2023 End: 08-07-2023 ambulatory Reji Alcantara Other [employer] Other Start: 08-05-2023 End: 08-05-2023 ambulatory Delia Deng Other [employer] Other Start: 08-05-2023 Office outpatient vi sit 15 minutes Delia Deng [facility] Start: 07-05-2023 End: 07-05-2023 ambulatory Delia Deng Other [employer] Other Start: 07-05-2023 Telephone encounter Delia Deng [facility] [place] Start: 06-20-2023 End: 06-20-2023 ambulatory Reji Alcantara Other [employer] Other Start: 06-20-2023 Follow-up encounter Reji Rutledge [facility] Start: 05-02-2023 End: 05-02-2023 ambulatory Delia Deng Other [employer] Other Start: 05-02-2023 Telephone encounter Delia Deng [facility] [place] Start: 05-01-2023 End: 05-01-2023 ambulatory DO Delia Deng Work Phone: [facility] Work Phone: Start: 05-01-2023 End: 05-01-2023 Patient encounter procedure DO Delia Deng Work Phone: [facility] [place] Work Phone: Start: 03-25-2023 Registered Recurring DO Delia Deng Work Phone: [facility] Work Phone: Start: 03-05-2023 End: 03-05-2023 ambulatory Delia Deng Other [employer] Other Start: 03-05-2023 Telephone encounter Delia Deng [facility] [place] Start: 03-04-2023 End: 03-04-2023 ambulatory Delia Deng Other [employer] Other Start: 03-04-2023 Telephone encounter Delia Deng [facility] [place] Start: 01-28-2023 End: 01-28-2023 ambulatory Delia Deng Other [employer] Other Start: 01-28-2023 Office outpatient vi sit 15 minutes Delia Deng [facility] [place] Start: 01-25-2023 End: 01-25-2023 ambulatory DELIA DENG Facility:[facility] Start: 12-26-2022 End: 12-26-2022 ambulatory MARYJANE WAITE Facility:[facility] Start: 12-26-2022 End: 12-26-2022 Patient encounter procedure Maryjane Waite MD Work Phone: Cardiology Comment on above: Primary hypertension ; Mixed hyperlipidemia; Anxiety; Pre-diabetes; Obesity (BMI 30-39.9) Start: 11-19-2022 Telephone encounter No One (Historic al) Referring Physician Comment on above: External Referrals/r esources Start: 11-19-2022 End: 11-19-2022 ambulatory DO Delia Deng Work Phone: [facility] Work Phone: Start: 11-19-2022 End: 11-19-2022 Patient encounter procedure DO Delia Deng Work Phone: [facility] [place] Work Phone: Start: 11-01-2022 End: 11-01-2022 ambulatory DO Delia Deng Work Phone: [facility] Work Phone: Start: 11-01-2022 End: 11-01-2022 Patient encounter procedure DO Delia Deng Work Phone: [facility] [place] Work Phone: Start: 10-31-2022 End: 11-01-2022 ambulatory JUNIOR ZAMBRANO Facility: Start: 10-30-2022 End: 10-30-2022 ambulatory Delia Deng Other [employer] Other Start: 10-30-2022 Office outpatient vi sit 15 minutes Delia Deng [facility] Start: 09-26-2022 Registered Recurring DO Delia Deng Work Phone: [facility] Work Phone: Start: 09-26-2022 End: 09-26-2022 ambulatory Reji Alcantara Other [employer] Other Start: 09-26-2022 Follow-up encounter Reji Rutledge [facility] Start: 09-03-2022 End: 09-03-2022 ambulatory Delia Deng Other [employer] Other Start: 09-03-2022 Telephone encounter Delia Deng [facility] [place] Start: 09-01-2022 End: 09-01-2022 ambulatory DO Delia Deng Work Phone: [facility] Work Phone: Start: 09-01-2022 End: 09-01-2022 Patient encounter procedure DO Delia Deng Work Phone: [facility] [place] Start: 08-27-2022 End: 08-27-2022 ambulatory Delia Deng Other [employer] Other Start: 08-27-2022 Telephone encounter Delia Deng [facility] [place] Start: 08-15-2022 End: 08-15-2022 ambulatory Delia Deng Other [employer] Other Start: 08-15-2022 Telephone encounter Delia Deng [facility] [place] Start: 08-14-2022 Registered Recurring DO Delia Deng Work Phone: [facility] Start: 08-14-2022 (Televisit) Televisit Reji Alcantara [facility] Start: 08-14-2022 End: 08-14-2022 ambulatory Reji Alcantara Other [employer] Other Start: 08-13-2022 End: 08-13-2022 ambulatory Delia Deng Other [employer] Other Start: 08-13-2022 Office outpatient vi sit 25 minutes Delia Deng [facility] Start: 08-01-2022 End: 08-01-2022 ambulatory Delia Deng Other [employer] Other Start: 08-01-2022 Telephone encounter Delia Deng [facility] [place] Start: 07-16-2022 End: 07-16-2022 ambulatory Delia Deng Other [employer] Other Start: 07-16-2022 Telephone encounter Delia Deng [facility] [place] Start: 06-20-2022 End: 06-20-2022 ambulatory Reji Alcantara Other [employer] Other Start: 06-20-2022 Follow-up encounter Reji [facility]enc[facility] Start: 06-20-2022 Telephone encounter Reji ascencio [facility] Start: 05-25-2022 Office outpatient vi sit 15 minutes [facility] Start: 05-25-2022 Telephone encounter [facility] Start: 05-25-2022 End: 05-26-2022 ambulatory JUNIOR ZAMBRANO [employer] Other Start: 05-17-2022 End: 05-17-2022 ambulatory Reji Alcantara Other [employer] Other Start: 05-17-2022 Follow-up encounter Reji ascencio [facility] Start: 04-26-2022 ([facility] FU) [facility] U [employer] Luciana Carmen [facility] Start: 04-26-2022 End: 04-26-2022 ambulatory Luciana Carmen Other [employer] Other Start: 04-09-2022 End: 04-09-2022 ambulatory Delia Deng Other [employer] Other Start: 04-09-2022 Office outpatient vi sit 25 minutes Delia Deng [facility] [place] Start: 04-05-2022 End: 04-05-2022 ambulatory Reji Rosendiff Other [employer] Other Start: 04-05-2022 Follow-up encounter Reji Maricruz Maty sonu [facility] Start: 04-05-2022 Registered Recurring DO Delia Deng Work Phone: [facility] Start: 04-05-2022 End: 04-05-2022 Patient encounter procedure DO Delia Deng Work Phone: [facility] [place] Start: 01-03-2022 End: 01-03-2022 ambulatory Reji Alcantara Other [employer] Other Start: 01-03-2022 Telephone encounter Reji Maricruz Maty sonu [facility] Start: 10-24-2021 End: 10-24-2021 ambulatory Reji Alcantara Other [employer] Other Start: 10-24-2021 Follow-up encounter Reji Rosendijudy [email or web address] Start: 10-04-2021 End: 10-04-2021 ambulatory Luciana Carmen Other [employer] Other Start: 10-04-2021 IBT OBESITY SUBQ 15M IN VIRTUAL Luciana Alexlatesha [facility] Start: 09-18-2021 End: 09-18-2021 ambulatory Delia Deng Other [employer] Other Start: 09-18-2021 Office outpatient vi sit 15 minutes Delia Deng [facility] Procedures Date Procedure Procedure Detail Performing Clinician Start: 11-04-2011 Tonsillectomy Junior morales Start: 11-04-2005 Lumpectomy of breast Maria M Contreras Plan of Treatment Date Care Activity Detail Author Start: 05-01-2023 [facility] Start: 11-04-2022 DEPRESSION ASSESSMENT DEPRESSION ASS ESSMENT [facility] Start: 11-17-2021 COVID-19 VACCINE (4 - Booster for Pfizer series) COVID-19 VACCINE (4 - Booster for Pfizer series) [facility] Start: 2020 Mammography MAMMOGRAM [facility] Start: 2010 HPV TESTING HPV TESTING [facility] Start: 2001 PAP TESTING PAP TESTING [facility] Start: 1999 Urine microalbumin profile DTAP,TDAP,TD (1 - Tdap) [facility] Start: 1998 ANNUAL PCP TEAM PROCUREMENT TECHNICIAN DI DISEASE VISIT ANNUAL PCP TEAM CHRONIC DISEASE VISIT [facility] Start: 1998 BP CONTROLLED (<130/80) BP CONTROLLE D (<130/80) [facility] Start: 1998 HEPATITIS C SCREENING HEPATITIS C SC KATHERINE [facility] Start: 1998 HIV SCREENING HIV SCREENING [facility] Start: 1980 HEPATITIS B (1 of 3 - 3-dose series) HEPATITIS B (1 of 3 - 3-dose series) [facility] Comprehensive metabo lic 1999 panel - Serum or Plasma [facility] Comprehensive metabo lic 1999 panel - Serum or Plasma [facility] CT [facility] End: 12-26-2023 ECG COMPLETE ECG COMPLETE ECG Routine Primary hypertension Mixed hyperlipidemia Anxiety 1 Occurrences starting 12/26/2022 until 12/26/2023 [facility] Work Phone: Comment on above: 1 Occurrences starti ng 12/26/2022 until 12/26/2023 End: 12-26-2023 EXERCISE STRESS ECG (WITHOUT IMAGING) EXERCISE STRESS ECG (WITHOUT IMAGING) Cardiology Routine Primary hypertension Mixed hyperlipidemia Anxiety Pre-diabetes Obesity (BMI 30-39.9) 1 Occurrences starting 12/26/2022 until 12/26/2023 [facility] Work Phone: Comment on above: 1 Occurrences starti ng 12/26/2022 until 12/26/2023 Glucose measurement estimated from glycated hemoglobin [facility] Glucose measurement estimated from glycated hemoglobin [facility] Insulin [Units/volum e] in Serum or Plasma [facility] Immunizations Immunization Date Immunization Notes Care Provider Edith linksheri 07-25-2023 Flu Shot - Documenta tion Purposes Only Delia Deng Other [facility] 07-26-2022 influenza, seasonal, injectable Delia Deng Other [facility] 09-22-2021 COVID-19 Vaccine Mod jeffery - Documentation Purposes Only Reji Alcantara Other [facility] 08-25-2021 influenza, seasonal, injectable Delia Sowmya Other [facility] 01-05-2021 COVID-19 Vaccine Pfi zer - Documentation Purposes Only Delia Deng Other [facility] 12-15-2020 COVID-19 Vaccine Pfi zer - Documentation Purposes Only Delia Deng Other [facility] 06-26-2020 influenza, seasonal, injectable Delia Deng Other [facility] 08-27-2019 influenza, seasonal, injectable Delia Deng Other [facility] Payers Date Payer Category Payer Self-pay [id number] 2015 Unknown [id number] 1980 Unknown [id number] 2.16.84 [id number] 1980 Unknown [id number] 2.16.84 [id number] 1980 Unknown [id number] 2.16.84 [id number] 1980 Unknown [id number] 2.16.84 [id number] 1980 Unknown [id number] 2.16.8 [id number] 1980 Unknown [id number] 2.16.8 [id number] 1980 Unknown [id number] 2.16.8 [id number] 1980 Unknown [id number] 2.16.8 [id number] 1980 Unknown [id number] 2.16.8 [id number] 1980 Unknown [id number] 2.16.8 [id number] 1980 Unknown [id number] 2.16.8 [id number] 1959 Unknown [id number] Unknown [id number] 2.16.8 [id number] Unknown [id number] 2.16.8 [id number] Unknown [id number] 2.16.8 [id number] Unknown [id number] 2.16.8 [id number] Social History Date Type Detail Facility [facility] [employer] Other Start: 1980 Sex Assigned At Female [facility] Sex Assigned At [facility] Tobacco smoking stat [facility] Tobacco smoking consumption unknown [facility] Start: 1980 Sex Assigned At Not on file [facility] Start: 02-17-2024 End: 09-20-2024 Tobacco smoking status NHIS Never smoked tobacco (finding) [facility] Start: 04-06-2016 End: 12-07-2024 Sex Female (finding) [facility] Sexual Orientation [facility] Clinical Notes 10-11-2012 to 12-07-2024 Note Date & Type Note Facility 12-07-2024 Evaluation note Diagnosis Onset Date Resolution Anxiety acute December 07, 2024 5:02pm Hemorrhoid acute December 07, 2024 5:02pm Hyperlipidemia acute December 072024 5:02pm Hypertension acute December 5:02pm Obesity acute December 07, 2024 5:02pm [facility] Work Phone: [phone]) 375-379508-13-2024 NotePatient Education Nutrition BMI for Adults What is BMI? Body mass index (BMI) is a number that is calculated from a person's weight and height. BMI can help estimate how much of a person's weight is composed of fat. BMI does not measure body fat directly.Rather, it is an alternative to procedures that directly measure body fat, which can be difficult and expensive. BMI can help identify people who may be at higher risk for certain medical problems. What are BMI measurements used for? BMI is used as a screening tool to identify possible weight problems. It helps determine whether a person is obese, overweight, a healthy weight, or underweight. BMI is useful for: ? Identifying a weight problem that may be related to a medical condition or may increase the risk for medical problems. ? Promoting changes, such as changes in diet and exercise, to help reach a healthy weight. BMI screening can be repeated to see if these changes are working. How is BMI calculated? BMI involves measuring your weight in relation to your height. Both height and weight are measured,and the BMI is calculated from those numbers. This can be done either in [place] or metric measurements. Note that charts and online BMI calculators are available to help you find your BMI quickly and easily without having to do these calculations yourself. To calculate your BMI in [place] measurements: 1. Measure your weight in pounds (lb). 2. Multiply the number of pounds by 703. ? For example, for a person who weighs 180 lb, multiply that number by 703, which equals 126,540. 3. Measure your height in inches. Then multiply that number by itself to get a measurement called inches squared. ? For example, for a person who is 70 inches tall, the inches squared measurement is 70 inches x 70 inches, which equals 4,900 inches squared. 4. Divide the total from step 2 (number of lb x 703) by the total from step 3 (inches squared): 126,540 ? 4,900 = 25.8. This is your BMI. To calculate your BMI in metric measurements: 1. Measure your weight in kilograms (kg). 2. Measure your height in meters (m). Then multiply that number by itself to get a measurement called meters squared. ? For example, for a person who is 1.75 m tall, the meters squared measurement is 1.75 m x 1.75 m, which is equal to 3.1 meters squared. 3. Divide the number of kilograms (your weight) by the meters squared number. In this example: 70 ?3.1 = 22.6. This is your BMI. What do the results mean? BMI charts are used to identify whether you are underweight, normal weight, overweight, or obese. The following guidelines will be used: ? Underweight: BMI less than 18.5. ? Normal weight: BMI between 18.5 and 24.9. ? Overweight: BMI between 25 and 29.9. ? Obese: BMI of 30 or above. Keep these notes in mind: ? Weight includes both fat and muscle, so someone with a muscular build, such as an athlete, may have a BMI that is higher than 24.9. In cases like these, BMI is not an accurate measure of body fat. ? To determine if excess body fat is the cause of a BMI of 25 or higher, further assessments may need to be done by a health care provider. ? BMI is usually interpreted in the same way for men and women. Where to find more information For more information about BMI, including tools to quickly calculate your BMI, go to these websites: ? Centers for Disease Control and Prevention: www.cdc.gov ? [place] [employer]: www.heart.org ? National Heart, Lung, and [facility] [place]: www.nhlbi.nih.gov Summary ? Body mass index (BMI) is a number that is calculated from a person's weight and height. ? BMI may help estimate how much of a person's weight is composed of fat. BMI can help identify those who may be at higher risk for certain medical problems. ? BMI can be measured using [place] measurements or metric measurements. ? BMI charts are used to identify whether you are underweight, normal weight, overweight, or obese. This information is not intended to replace advice given to you by your health care provider. Make sure you discuss any questions you have with your health care provider. Document Revised: 07/13/2020 Document Reviewed: 05/20/2020 [employer] Patient Education ? 2022 [employer] Physical Medicine and Rehabilitation Exercising to Lose Weight Getting regular exercise is important for everyone. It is especially important if you are overweight. Being overweight increases your risk of heart disease, stroke, diabetes, high blood pressure, andseveral types of cancer. Exercising, and reducing the calories you consume, can help you lose weight and improve fitness and health. Exercise can be moderate or vigorous intensity. To lose weight, most people need to do a certain amount of moderate or vigorous-intensity exercise each week. How can exercise affect me? You lose weight when you exercise enough to burn more calories than you eat. Exercise a (more content not included)...[facility]04-15-2024 Evaluation note* Author Delia Deng [facility] Authored February 17, 2024 5:4 1pm The above note written by __ _Sheldon Salazar____ acting as human recorder, note dictated by Dr. Clarke .I performed the above HPI, ROS, and Examination. I formulated and dictated the treatment plan and was present for entire encounter. Delia Deng D.O. [facility] Work Phone: [phone] Evaluation note* Encounter Date Diagnosis Assessment Notes Treatment Notes Treatment Clinical Notes Nov, BMI 40.0-44.9, adult (ICD-10 - Z68.41) Nov, Hypertension (ICD-10 - I10) Nov, Prediabetes (ICD-10 - R73.03) Nov, Mixed hyperlipidemia (ICD-10 - E78.2) Nov, Obstructive sleep apnea (ICD-10 - G47.33) Nov, Anxiety (ICD-10 - F41.9) Nov, Metabolic syndrome X (ICD-10 - E88.81) Nov, Medication monitorin g encounter (ICD-10 - Z51.81) [facility] Other 01-15-2024 Evaluation note* Encounter Date Diagnosis Assessment Notes Treatment Notes Treatment Clinical Notes Nov, Acute sinusitis (ICD-10 - J01.90) She voices that the day after Zaida (10-29-23) she slept for 4 hours, sneezed, and had joint pain and lost her sense of taste and smell. These symptoms lasted two days, and she tested for COVID-19 several times and each time it was negative. She was never able to rid the sinus symptoms she had after that and feels they have come and gone. She has never taken Mucinex, I did explain to her that this will liquify the dry secretions and help to rid these. I did recommend she try OTC Mucinex. I will treat her sinuses with an antibiotic. Guidance is given on how to take the medication. Eat yogurt daily while on ATB to prevent GI upset. Rest, push fluids. Nov, Hyperlipidemia (ICD-10 - E78.5) She has not had her lab work drawn yet. I did recommend that she have these drawn soon. She admits she has not been walking and has not been great since the holidays so she is going to wait and will get her blood work done soon. Nov, Anxiety (ICD-10 - F41.9) She will return in three months. Side effects/risks/dianne efits of medication were reviewed. Nov, Other 2:07 PM - 2:18 PM [facility] Other 12-04-2023 Evaluation note* Encounter Date Diagnosis Assessment Notes Treatment Notes Treatment Clinical Notes Oct, Anxiety (ICD-10 - F41.9) [facility] Other 11-22-2023 Evaluation note* Encounter Date Diagnosis Assessment Notes Treatment Notes Treatment Clinical Notes Sep, BMI 40.0-44.9, adult (ICD-10 - Z68.41) Sep, Hypertension (ICD-10 - I10) Sep, Prediabetes (ICD-10 - R73.03) Sep, Mixed hyperlipidemia (ICD-10 - E78.2) Sep, Obstructive sleep apnea (ICD-10 - G47.33) Sep, Anxiety (ICD-10 - F41.9) Sep, Metabolic syndrome X (ICD-10 - E88.81) Sep, Medication monitorin g encounter (ICD-10 - Z51.81) [facility] Other 10-04-2023 Evaluation note* Encounter Date Diagnosis Assessment Notes Treatment Notes Treatment Clinical Notes Aug, BMI 40.0-44.9, adult (ICD-10 - Z68.41) Aug, Hypertension (ICD-10 - I10) Aug, Prediabetes (ICD-10 - R73.03) Aug, Mixed hyperlipidemia (ICD-10 - E78.2) Aug, Obstructive sleep apnea (ICD-10 - G47.33) Aug, Anxiety (ICD-10 - F41.9) Aug, Metabolic syndrome X (ICD-10 - E88.81) Aug, Medication monitorin g encounter (ICD-10 - Z51.81) [facility] Other 10-02-2023 Evaluation note* Encounter Date Diagnosis Assessment Notes Treatment Notes Treatment Clinical Notes Aug, Anxiety (ICD-10 - F41.9) She does continue to use and benefit from the Xanax. She only uses the medication when needed. 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 An OARRS report was printed and reviewed, no discrepancies noted. Frequent appointments needed due to addiction potential of medication. Pain inventory sheet completed and reviewed if opiod medication given. Pain contract is on file if pertinent. Patient will have office visits every three months for evaluation or sooner if needed. I discussed addiction potential of medication with the patient. Discussed with the patient and provided a treatment plan including the use of non-opiod analgesics and non-pharmacological intervention with patient if treated for pain. We have discussed realistic benefits and known risks of opiod/controlled therapy and the expected benefits for both pain and function. These benefits outweigh the risks. Patient has been counselled on the dangers of combining opiods/controlled prescriptions with alcohol or other sedatives and counseled on the safe storage and disposal of opiods/controlled prescriptions. Do not drive or operate heavy machinery after taking opiod/controlled medication. I have verified that no current substance abuse treatments are being prescribed. Aug, Weight loss (ICD-10 - R63.4) She voices that she got a dog that has to be walked every night so she walks 2 miles a night with her dog. She is taking the Qsymia and following with Dr. Alcantara. She is encouraged to continue with the dietary and lifestyle changes that she has made. Aug, Other She voices that she still has not had the BMP drawn to have her potassium level checked. She states that she will have this done soon. She is a hard lab draw. [facility] Other 09-01-2023 Evaluation note* Encounter Date Diagnosis Assessment Notes Treatment Notes Treatment Clinical Notes Jul, Hypertension (ICD-10 - I10) [facility] Other 08-17-2023 Evaluation note* Encounter Date Diagnosis Assessment Notes Treatment Notes Treatment Clinical Notes Jun, BMI 40.0-44.9, adult (ICD-10 - Z68.41) Jun, Hypertension (ICD-10 - I10) Jun, Prediabetes (ICD-10 - R73.03) Jun, Mixed hyperlipidemia (ICD-10 - E78.2) Jun, Obstructive sleep apnea (ICD-10 - G47.33) Jun, Anxiety (ICD-10 - F41.9) Jun, Metabolic syndrome X (ICD-10 - E88.81) Jun, Medication monitorin g encounter (ICD-10 - Z51.81) [facility] Other 06-29-2023 Evaluation note* Encounter Date Diagnosis Assessment Notes Treatment Notes Treatment Clinical Notes Apr, Hyperlipidemia (ICD-10 - E78.5) Discussed cholesterol results with patient today. Total is 211. HDL is 51. LDL is 117. Triglycerides are 216. VLDL is 43. She started taking her Rosuvastatin in the morning. I did explain to her that this medication does work better at night so she will switch back to taking this at night. She admits to eating out alot due to her children's sports and her busy lifestyle so she feels that this has contributed to her results. Apr, Hypertension (ICD-10 - I10) At this time she is to continue with the above medication daily. She voices that her BP has been 107/75, 116/72, controlled. Weight loss will help improve her blood pressure. Apr, Prediabetes (ICD-10 - R73.09) She is following with Dr. Alcantara for evaluation. She voices that she will be starting Qsymia again tomorrow to assist with weight loss. Her glucose is 83. HgA1C is 5.9 which is at the higher end of normal. I did recommend that she work on weight loss, watch intake of carbs and sugars. Stay active. Apr, Anxiety (ICD-10 - F41.9) An OARRRS report was reviewed, no discrepancies noted. She does continue to use and benefit from the Xanax. I will see her back in three months. Side effects/risks/bene fits of medication were reviewed. An OARRS report was printed and reviewed, no discrepancies noted. Frequent appointments needed due to addiction potential of medication. Pain inventory sheet completed and reviewed if opiod medication given. Pain contract is on file if pertinent. Patient will have office visits every three months for evaluation or sooner if needed. I discussed addiction potential of medication with the patient. Discussed with the patient and provided a treatment plan including the use of non-opiod analgesics and non-pharmacologica l intervention with patient if treated for pain. We have discussed realistic benefits and known risks of opiod/controlled therapy and the expected benefits for both pain and function. These benefits outweigh the risks. Patient has been counselled on the dangers of combining opiods/controlled prescriptions with alcohol or other sedatives and counseled on the safe storage and disposal of opiods/controlled prescriptions. Do not drive or operate heavy machinery after taking opiod/controlled medication. I have verified that no current substance abuse treatments are being prescribed. Apr, Other intermediate teacher (current) drug therapy (ICD-10 - Z79.899) Apr, Elevated high sensitivity C-reactive protein (ICD-10 - R79.82) Her c-reactive protein is down from 19.5 to 12.0 but this is still higher than we would like to see. Apr, Cervical pain (ICD-10 - M54.2) I did provide her with a refill on Zanaflex today. Apr, BMI 40.0-44.9, adult (ICD-10 - Z68.41) Starting tomorrow she is going to start Qsymia, and she voices that she was on this in the past and it helped to shut things off in her brain and allowed her to avoid eating less and avoid the junk foods. She does think that the Qsymia did contribute to her hemorrhoids and her elevated blood pressure, so she is going to be watching this closely. She is going to increase her water intake and fiber intake. I did recommend that she become more active, recommend that she start walking daily starting with even five minutes a day and work her way up. She will see Dr. Alcantara in June (2022). She would like an order to have lab drawn (05-15-23) to be sure her potassium is normal on the Qsymia. I will send this to the lab for her. Apr, Weight gain (ICD-10 - R63.5) Apr, Other 12:25 PM - 12:4 5 PM [facility] Other 05-02-2023 Evaluation note* Encounter Date Diagnosis Assessment Notes Treatment Notes Treatment Clinical Notes March, Anxiety (ICD-10 - F41.9) [facility] Other 05-01-2023 Evaluation note* Encounter Date Diagnosis Assessment Notes Treatment Notes Treatment Clinical Notes March, Hypertension (ICD-10 - I10) [facility] Other 03-27-2023 Evaluation note* Encounter Date Diagnosis Assessment Notes Treatment Notes Treatment Clinical Notes Jan, Anxiety (ICD-10 - F41.9) We discussed that exercise is a natural stress reliever. She does not need a refill, she rarely takes the Xanax. She can call when she runs low. She continues to be under a great deal of stress with work but voices that her home life is good and she has good support at home. An OARRS report was printed and reviewed, no discrepancies noted. Frequent appointments needed due to addiction potential of medication. Pain inventory sheet completed and reviewed if opiod medication given. Pain contract is on file if pertinent. Patient will have office visits every three months for evaluation or sooner if needed. I discussed addiction potential of medication with the patient. Discussed with the patient and provided a treatment plan including the use of non-opiod analgesics and non-pharmacologica l intervention with patient if treated for pain. We have discussed realistic benefits and known risks of opiod/controlled therapy and the expected benefits for both pain and function. These benefits outweigh the risks. Patient has been counselled on the dangers of combining opiods/controlled prescriptions with alcohol or other sedatives and counseled on the safe storage and disposal of opiods/controlled prescriptions. Do not drive or operate heavy machinery after taking opiod/controlled medication. I have verified that no current substance abuse treatments are being prescribed. Jan, Hypertension (ICD-10 - I10) Her home readings are around 104/72. She does continue with above medication daily. Jan, Elevated high sensitivity C-reactive protein (ICD-10 - R79.82) She voices that she did see a relief master for evaluation and a stress test was ordered, if this was negative she was not going to have to return to see the relief master. She had an exercise stress test done on 01-25-23 and had the results on her My Chart in the office today which were reviewed. She does walk for exercise in the spring when the weather improves but has not started this yet. I did recommend that she become more physically fit based on her stress test results. She did tell the relief master about her family history and her dad's history. She voices that there seemed to be no concern for her elevated high sensitivity c-reactive protein result. Jan, Weight gain (ICD-10 - R63.5) She voices that she has a treadmill but finding the time to use it is difficult for her. She will begin walking for exercise as soon as the weather improves. I did recommend that she walk three times a week. She does walk three miles when she is able to walk. Jan, Hemorrhoid (ICD-10 - K64.9) She voices that she developed this issue after starting Qsymia and her Losartan, but she did stop the Qsymia and increased her water intake and this issue has improved. Jan, Hyperlipidemia (ICD-10 - E78.5) Continue with above medication daily as directed. Jan, Prediabetes (ICD-10 - R73.09) Jan, Other usp (current) drug therapy (ICD-10 - Z79.899) [facility] Other 02-22-2023 NoteHNO ID: [id number] Author: Maryjane Waite MD Service: ? Author Type: Physician Type: Progress Notes Filed: 12/26/2022 1:35 PM Note Text: [facility] [place] SECTION OF REGIONAL CARDIOLOGY OUTPATIENT VISIT DATE December 26, 2022 OUTPATIENT VISIT TYPE NEW PRIMARY CARE PHYSICIAN: Delia Deng [address] [place] [address] A written report of the findings and recommendations will be sent to the requesting provider via shared medical record or via [employer]. Patient is being seen at the request of the referring physician for Hyperlipidemia and Hypertension HISTORY OF PRESENT ILLNESS: Ms. Beavers is a 42 year old female with a significant history of hypertension. Hyperlipidemia. COVID-19 infection in March 2022. History of anxiety. Prediabetes. Obesity. No family history of premature coronary artery disease or sudden cardiac . Cardiac work-up includes: None except for EKGs. Has been doing well recently however she mentioned that she cannot lose weight even though she is exercising. However she admitted that her diet is mainly meat and also as she does not do enough physical activity. She does not count her calories. She is trying to increase her vegetable intake however. And she eats a lot of fruits. IMPRESSION: Encounter Diagnosis ICD-10-CM 1. Primary hypertension I10 ECG COMPLETE EXERCISE STRESS ECG (WITHOUT IMAGING) 2. Mixed hyperlipidemia E78.2 ECG COMPLETE EXERCISE STRESS ECG (WITHOUT IMAGING) 3. Anxiety F41.9 ECG COMPLETE EXERCISE STRESS ECG (WITHOUT IMAGING) 4. Pre-diabetes R73.03 EXERCISE STRESS ECG (WITHOUT IMAGING) 5. Obesity (BMI 30-39.9) E66.9 EXERCISE STRESS ECG (WITHOUT IMAGING) PLAN AND RECOMMENDATIONS: Abnormal EKG With a few risk factors of coronary artery disease and increased high-sensitivity CRP. Risk factor modification is alone important. There is no specific treatment which targets the high-sensitivity CRP. Since she had no cardiac work-up in the past we will proceed with a stress testing to rule out myocardial ischemia. Hypertension Excellent control with current medications at home her numbers at home are between 1 10-1 20 systolic over 70 diastolic. Her her blood pressure is always higher when she goes to the doctor's office. Hyperlipidemia LDL goal 100 or less. Her last LDL was checked at 94. Excellent control. Obesity We had a very long discussion about the need for more plant-based diet. Less animal-based products. No dairy products. Reduce calorie intake. Increase level of exercise. REVIEW OF SYSTEMS: Chest pain No Shortness of breath No Bleeding No Dizziness No Syncope No Palpations No 10 systems reviewed and are negative with the exception of pertinent positives described in HPI PHYSICAL EXAMINATION: BP 141/91 Pulse 89 Ht 170.2 cm (5' 7 ) Wt 115.7 kg (255 lb) SpO2 98% BMI 39.94 kg/m? HEENT: normocephalic, EOMI Heart: regular rhythm Lungs: clear to auscultation Abdomen: bowel sounds present Extremities: no edema Musculoskeletal: chest wall nontender Neurological: alert and oriented Psychiatric: appropriate and cooperative Skin: no rash, cellulitis or lesions appreciated CARDIOVASCULAR MEDICINE TESTING: I have personally reviewed ECG, laboratory results, and outside medical records PAST CARDIAC HISTORY: None. History reviewed. No pertinent past medical history. History reviewed. No pertinent surgical history. History reviewed. No pertinent family history. ALLERGIES Not on File CURRENT MEDICATIONS: ALPRAZolam (XANAX) 0.25 mg tablet Take 0.25 mg by mouth. ALPRAZolam (XANAX) 0.5 mg tablet Take by mouth. gabapentin (NEURONTIN) 100 mg capsule Take by mouth q 24 HR. losartan-hydroCHLOROthiazide (HYZAAR) 100-25 mg per tablet Take 1 tablet by mouth once daily. rosuvastatin (CRESTOR) 10 mg tablet Rosuvastatin Calcium 10 mg TAKE 1 TABLET DAILY Active sertraline (ZOLOFT) 100 mg tablet sertraline (ZOLOFT) 25 mg tablet tiZANidine (ZANAFLEX) 4 mg tablet Take by mouth. coenzyme Q-10 double strength 100 mg/5 ml oral liquid Take 100 mg by mouth once daily. zinc sulfate (ZINC-15 ORAL) Take 15 mg by mouth once daily. cholecalciferol, vitamin D3, (VITAMIN D3 ORAL) Take 1 Drop by mouth once daily.[facility]02-22-2023 History of Present illness Narrative * Maryjane Waite MD - 12/26/2022 12:56 PM EST Images from the original note were not included. [facility] [place] SECTION OF REGIONAL CARDIOLOGY OUTPATIENT VISIT DATE December 26, 2022 OUTPATIENT VISIT TYPE NEW PRIMARY CARE PHYSICIAN: Delia Deng [address] [place] [address] A written report of the findings and recommendations will be sent to the requesting provider via shared medical record or via [employer]PS. Patient is being seen at the request of the referring physician for Hyperlipidemia and Hypertension HISTORY OF PRESENT ILLNESS: Ms. Beavers is a 42 year old female with a significant history of hypertension. Hyperlipidemia. COVID-19 infection in March 2022. History of anxiety. Prediabetes. Obesity. No family history of premature coronary artery disease or sudden cardiac . Cardiac work-up includes: None except for EKGs. Has been doing well recently however she mentioned that she cannot lose weight even though she is exercising. However she admitted that her diet is mainly meat and also as she does not do enough physical activity. She does not count her calories. She is trying to increase her vegetable intake however. And she eats a lot of fruits. IMPRESSION: Encounter Diagnosis ICD-10-CM 1. Primary hypertension I10 ECG COMPLETE EXERCISE STRESS ECG (WITHOUT IMAGING) 2. Mixed hyperlipidemia E78.2 ECG COMPLETE EXERCISE STRESS ECG (WITHOUT IMAGING) 3. Anxiety F41.9 ECG COMPLETE EXERCISE STRESS ECG (WITHOUT IMAGING) 4. Pre-diabetes R73.03 EXERCISE STRESS ECG (WITHOUT IMAGING) 5. Obesity (BMI 30-39.9) E66.9 EXERCISE STRESS ECG (WITHOUT IMAGING) PLAN AND RECOMMENDATIONS: Abnormal EKG With a few risk factors of coronary artery disease and increased high- sensitivity CRP. Risk factor modification is alone important. There is no specific treatment which targets the high-sensitivity CRP. Since she had no cardiac work-up in the past we will proceed with a stress testing to rule out my ocardial ischemia. Hypertension Excellent control with current medications at home her numbers at home are between 1 10-1 20 systolic over 70 diastolic. Her her blood pressure is always higher when she goes to the doctor's office. Hyperlipidemia LDL goal 100 or less. Her last LDL was checked at 94. Excellent control. Obesity We had a very long discussion about the need for more plant-based diet. Less animal-based products.No dairy products. Reduce calorie intake. Increase level of exercise. REVIEW OF SYSTEMS: Chest pain No Shortness of breath No Bleeding No Dizziness No Syncope No Palpations No 10 systems reviewed and are negative with the exception of pertinent positives described in HPI PHYSICAL EXAMINATION: BP 141/91 Pulse 89 Ht 170.2 cm (5' 7 ) Wt 115.7 kg (255 lb) SpO2 98% BMI 39.94 kg/m HEENT: normocephalic, EOMI Heart: regular rhythm Lungs: clear to auscultation Abdomen: bowel sounds present Extremities: no edema Musculoskeletal: chest wall nontender Neurological: alert and oriented Psychiatric: appropriate and cooperative Skin: no rash, cellulitis or lesions appreciated CARDIOVASCULAR MEDICINE TESTING: I have personally reviewed ECG, laboratory results, and outside medical records PAST CARDIAC HISTORY: None. History reviewed. No pertinent past medical history. History reviewed. No pertinent surgical history. History reviewed. No pertinent family history. ALLERGIES Not on File CURRENT MEDICATIONS: ALPRAZolam (XANAX) 0.25 mg tablet Take 0.25 mg by mouth. ALPRAZolam (XANAX) 0.5 mg tablet Take by mouth. gabapentin (NEURONTIN) 100 mg capsule Take by mouth q 24 HR. losartan-hydroCHLOROthiazide (HYZAAR) 100-25 mg per tablet Take 1 tablet by mouth once daily. rosuvastatin (CRESTOR) 10 mg tablet Rosuvastatin Calcium 10 mg TAKE 1 TABLET DAILY Active sertraline (ZOLOFT) 100 mg tablet sertraline (ZOLOFT) 25 mg tablet tiZANidine (ZANAFLEX) 4 mg tablet Take by mouth. coenzyme Q-10 double strength 100 mg/5 ml oral liquid Take 100 mg by mouth once daily. zinc sulfate (ZINC-15 ORAL) Take 15 mg by mouth once daily. cholecalciferol, vitamin D3, (VITAMIN D3 ORAL) Take 1 Drop by mouth once daily. [facility]Bl[facility] Miscellaneous Notes* Telephone Encounter - Tato Morrow Pss - 11/19/2022 4:12 PM EST Patient: Bonnie Beavers Date of : 1980 Patient phone number: [phone] Referring Provider for the encounter: Dr Delia Deng Requesting Provider: Cardiology Reason for requesting visit (RFV/signs and symptoms/diagnosis): Hyperlipidemia, Elevated high sensitivity C-Reactive protein Person calling: caregiver: PAKO Return call to: self Medical Records/Insurance Card scanned into [employer]: No Comments: No documented in this encounterBlanchard [facility] Evaluation note* Encounter Date Diagnosis Assessment Notes Treatment Notes Treatment Clinical Notes Nov, Hyperlipidemia (ICD-10 - E78.5) [facility] Other 12-27-2022 Evaluation note* Encounter Date Diagnosis Assessment Notes Treatment Notes Treatment Clinical Notes Oct, Hemorrhoid (ICD-10 - K64.9) She has tried Tucks pads, Preparation H pads, creams, cooling gels and wipes. She is now using Metamucil once a day and taking stool softeners twice a day. She thinks the Metamucil has helped to soften her stool, and she does go when she gets up, and she was not having pain for about two weeks but now she has to take Advil due to burning pain with the hemorrhoid. The burning pain caused her to be unable to sit, stand, lay without pain. She cannot feel this on the outside only on the inside. She voices that her entire buttock hurts. She does see blood in the toilet when she has a bowel movement. We discussed a fissure. I can provide her with prescription suppositories and a referral to see Dr. Mcdaniels for evaluation. She would like to see if the suppository first and if it does not then she would consider seeing Dr. Mcdaniels. Guidance is given on how to use the suppository. She can use these for up to five days. She does need to be sure that she puts the suppository in far enough, she will know she went in far enough if it sucks itself in there and then it will not be uncomfortable and it will melt and help provide relief. She is to keep me posted with how she is doing and if she needs a referral to see Dr. Mcdaniels. Oct, Anxiety (ICD-10 - F41.9) An OARRS report was reviewed no discrepancies noted. Frequent appointments needed due to addiction potential of medication. She does continue to use and benefit from the Xanax. I will see her back in three months. Side effects/risks/benefi ts of medication were reviewed. Oct, Weight gain (ICD-10 - R63.5) Continue to follow with Dr. Alcantara for evaluation. Oct, Other 10:46 AM - 11:01 AM She voices that she will get her lab drawn this week, voices that she is going to stay well hydrated with plenty of water so that the blood can be drawn. [facility] Other 11-23-2022 Evaluation note* Encounter Date Diagnosis Assessment Notes Treatment Notes Treatment Clinical Notes Sep, BMI 40.0-44.9, adult (ICD-10 - Z68.41) Sep, Hypertension (ICD-10 - I10) Sep, Prediabetes (ICD-10 - R73.03) Sep, Mixed hyperlipidemia (ICD-10 - E78.2) Sep, Obstructive sleep apnea (ICD-10 - G47.33) Sep, Anxiety (ICD-10 - F41.9) Sep, Metabolic syndrome X (ICD-10 - E88.81) Sep, Medication monitorin g encounter (ICD-10 - Z51.81) [facility] Other 10-12-2022 Evaluation note* Encounter Date Diagnosis Assessment Notes Treatment Notes Treatment Clinical Notes Aug, Hypertension (ICD-10 - I10) [facility] Other 10-11-2022 Evaluation note* Encounter Date Diagnosis Assessment Notes Treatment Notes Treatment Clinical Notes Aug, BMI 40.0-44.9, adult (ICD-10 - Z68.41) Aug, Hypertension (ICD-10 - I10) Aug, Prediabetes (ICD-10 - R73.03) Aug, Mixed hyperlipidemia (ICD-10 - E78.2) Aug, Obstructive sleep apnea (ICD-10 - G47.33) Aug, Anxiety (ICD-10 - F41.9) Aug, Metabolic syndrome X (ICD-10 - E88.81) Aug, Medication monitorin g encounter (ICD-10 - Z51.81) [facility] Other 10-10-2022 Evaluation note* Encounter Date Diagnosis Assessment Notes Treatment Notes Treatment Clinical Notes Aug, Hypertension (ICD-10 - I10) This past summer her blood pressure readings were low so her Losartan dose was decreased. She voices that she feels fine but when she looked online and saw that the bloody nose could be a sign of high blood pressure she checked her blood pressure and it was elevated. Her blood pressure today is 135/94 so I did recommend that we increase her dose of Losartan but explained that we may have to have her increase her dose to 100 MG. I asked her to increase her dose today and guidance was given on how to take the medication today and tomorrow and she was asked to call with a blood pressure reading, based on this reading we will determine what her dose should be. Aug, Epistaxis (ICD-10 - R04.0) Just this weekend she has had four bloody noses with large blood clots, it is always the left nostril. She can breathe through her left nostril. She last had a nose bleed this morning. She has been using AYR gel for a few weeks because her nose was dry but had not been bleeding. She voices that her nose always gets dry every . She does not have her heat on yet. She ordered in room humidifiers and will begin using these as soon as she gets them. I did recommend that she wear a mask for a short time when she is out. I did recommend that she apply Vaseline to the inside of both of her nares with a clean finger to keep the area mositurized. In the office today silver nitrate was used to help cauterize the area. I did ask her to go to the ER if she is unable to get the nose bleed to stop within 30 minutes. The silver nitrate was applied to the inside of the left nares, she did get a bloody nose after this was applied, she placed pressure to the area and did not feel dizzy or light headed. She is to use the Vaseline today and then twice a day. Aug, Cervical pain (ICD-10 - M54.2) She voices that she has a stiff neck and did take Advil on Saturday but did not take any after that because of her nose bleeds. She voices that she had slept in a different bed then she is used to and ever since she had a kink in her neck and was unable to see a chiropractor. She did see her massotherapist but this again did not help. Her neck is tight on exam. It appears to be a muscular issue. Aug, Knee pain, right (ICD-10 - M25.561) She voices that her knee seemed to be progressing until she had to do wall sits and this really bothered her knee. Her physical therapist feels she may need an MRI at this point. She has an appointment with physical therapy parisa. [facility] Other 09-28-2022 Evaluation note* Encounter Date Diagnosis Assessment Notes Treatment Notes Treatment Clinical Notes Jul, Anxiety (ICD-10 - F41.9) [facility] Other 09-12-2022 Evaluation note* Encounter Date Diagnosis Assessment Notes Treatment Notes Treatment Clinical Notes Jul, Hyperlipidemia (ICD-10 - E78.5) I did recommend that she have fasting lab drawn prior to her next appointment in three months. Jul, Anxiety (ICD-10 - F41.9) She continues to take the Xanax only when needed, voices that she has not taken any recently. An OARRS report was reviewed no discrepancies noted. She can call for refills in between visits. Frequent appointments needed due to addiction potential of medication. I will see her back in three months for evaluation. Side effects/risks/benef its of medication. Jul, Other 5:54 PM - 5:59 PM [facility] Other 08-17-2022 Evaluation note* Encounter Date Diagnosis Assessment Notes Treatment Notes Treatment Clinical Notes Jun, BMI 40.0-44.9, adult (ICD-10 - Z68.41) Jun, Hypertension (ICD-10 - I10) Jun, Prediabetes (ICD-10 - R73.03) Jun, Mixed hyperlipidemia (ICD-10 - E78.2) Jun, Obstructive sleep apnea (ICD-10 - G47.33) Jun, Anxiety (ICD-10 - F41.9) Jun, Metabolic syndrome X (ICD-10 - E88.81) Jun, Medication monitorin g encounter (ICD-10 - Z51.81) [facility] Other 07-22-2022 Evaluation note* Encounter Date Diagnosis Assessment Notes Treatment Notes Treatment Clinical Notes May, Knee pain, right (ICD-10 - M25.561) She voices that she has been walking but otherwise she does not recall anything that would have caused her knee to begin hurting. Certain times of the month her joints will hurt. She voices that her knee hurt and she just assumed it would go away but then she could not get the knee to crack and it continued to hurt. It does hurt to go down stairs. In the last week it has gotten a little bit better. It did not swell and it does not appear to be swollen on exam. She went to the chiropractor and had an adjustment done but this has not helped. Her pain is over the patella, I suspect that this may not be tracking correctly or she has an irritation. The knee does not give out on her. I would like to order an x-ray to rule out abnormalities. If the x-ray does not show anything abnormal I would like her to attend physical therapy. An order is provided. She can cautiously take Advil but is told that this can cause lower extremity edema. She should only use this if needed. She should not use Voltaren gel and Advil together at the same time. Topical gel would be safer to use. May, Leg pain (ICD-10 - M79.606) right leg She voices that she has pain in her leg that has been there for 7-8 months. She refuses an order for a venous doppler. She does walk on concrete floors all day and bends and kneels on them. She will see what the physical therapist says and will continue to monitor. May, Hypertension (ICD-10 - I10) She voices that she and Dr. Alcantara discussed her blood pressure at her most recent visit with him (05/17/22) and together they decided to have her decrease her dose to 1/2 tablet (25 MG) a day. She was getting low readings of 109/78 at home. She will be having a BMP drawn for him soon. [facility] Other 07-14-2022 Evaluation note* Encounter Date Diagnosis Assessment Notes Treatment Notes Treatment Clinical Notes May, Hypertension (ICD-10 - I10) May, BMI 40.0-44.9, adult (ICD-10 - Z68.41) May, Prediabetes (ICD-10 - R73.03) May, Mixed hyperlipidemia (ICD-10 - E78.2) May, Obstructive sleep apnea (ICD-10 - G47.33) May, Anxiety (ICD-10 - F41.9) May, Metabolic syndrome X (ICD-10 - E88.81) May, Medication monitorin g encounter (ICD-10 - Z51.81) [facility] Other 06-23-2022 Evaluation note* Encounter Date Diagnosis Assessment Notes Treatment Notes Treatment Clinical Notes Apr, Obesity (ICD-10 - E66.9) Apr, BMI 39.0-39.9,adult (ICD-10 - Z68.39) Apr, Other Summary of Visi t: (A) reviewed successes, challenges and goals (B) discussed effect of emotions / stress on food choices. Pt states her anxiety creates a difficulty to focus and procrastination Patient set the following goals: - NEW: start counseling for anxiety, stress and emotional eating [facility] Other 06-06-2022 Evaluation note* Encounter Date Diagnosis Assessment Notes Treatment Notes Treatment Clinical Notes Apr, Hyperlipidemia (ICD-10 - E78.5) Discussed cholesterol results with patient today. Total is 179. HDL is 44. LDL is 92. Triglycerides are 217. Her CRP was 0.8. She is encouraged to continue with above medication. She is also encouraged to continue with her weight loss and stay active. Apr, Hypertension (ICD-10 - I10) Her blood pressure in the office today is higher than we would like to see. She voices that she did not start the Losartan that Dr. Alcantara prescribed. I did recommend that she start this medication. Two weeks after she starts the medication she will need to have a BMP drawn to be sure her potassium level has not gone too high. She can call for results. She voices that she will take this. The first few nights after she has started the medication she should sit on the edge of the bed before getting up to prevent hypotension. Apr, COVID-19 (ICD-10 - U07.1) She voices that she had COVID-19 in early March (2021) she thought she had allergies. By the end of the week she was very fatigued and could not taste anything so she tested herself at home and she was positive. She did take a Medrol dose pack that was prescribed by her PROGRAM DIRECTOR/AIR PERSONALITY when she had COVID-19 and voices that this significantly helped her sore throat that she had. Apr, Anxiety (ICD-10 - F41.9) Frequent appointments needed due to addiction potential of medication. She does continue to use and benefit from the Xanax and the Sertraline. I will need to see her back in three months for evaluation. Side effects/risks/benef its of medication were reviewed. She can call for refills on Xanax when needed. Apr, Weight gain (ICD-10 - R63.5) Apr, Other usp (current) drug therapy (ICD-10 - Z79.899) Apr, Prediabetes (ICD-10 - R73.09) She voices that she will be starting the above medication tomorrow. She is following with Dr. Alcantara at this time. Her A1C when checked by Dr. Alcantara was 5.8 which is at the higher end of normal. I encouraged her to watch her intake of carbs and sugars. Stay active. [facility] Other 06-02-2022 Evaluation note* Encounter Date Diagnosis Assessment Notes Treatment Notes Treatment Clinical Notes Apr, BMI 40.0-44.9, adult (ICD-10 - Z68.41) Apr, Prediabetes (ICD-10 - R73.03) Apr, Hypertension (ICD-10 - I10) Apr, Mixed hyperlipidemia (ICD-10 - E78.2) Apr, Obstructive sleep apnea (ICD-10 - G47.33) Apr, Anxiety (ICD-10 - F41.9) Apr, Metabolic syndrome X (ICD-10 - E88.81) [facility] Other 03-02-2022 Evaluation note* Encounter Date Diagnosis Assessment Notes Treatment Notes Treatment Clinical Notes Jan, BMI 40.0-44.9, adult (ICD-10 - Z68.41) [facility] Other 12-21-2021 Evaluation note* Encounter Date Diagnosis Assessment Notes Treatment Notes Treatment Clinical Notes Oct, Increased blood pressure (not hypertension) (ICD-10 - R03.0) Oct, BMI 40.0-44.9, adult (ICD-10 - Z68.41) Oct, Impaired fasting glucose (ICD-10 - R73.01) Oct, Mixed hyperlipidemia (ICD-10 - E78.2) Oct, Obstructive sleep apnea (ICD-10 - G47.33) Oct, Anxiety (ICD-10 - F41.9) Oct, Metabolic syndrome X (ICD-10 - E88.81) [facility] Other 12-01-2021 Evaluation note* Encounter Date Diagnosis Assessment Notes Treatment Notes Treatment Clinical Notes Oct, Obesity (ICD-10 - E66.9) Oct, BMI 39.0-39.9,adult (ICD-10 - Z68.39) Oct, Other Summary of Visit: (A) reviewed successes, challenges and goals (B) Discussed long-term nature of weight loss and weight maintenance. Encouraged pt to not cheat but strategically include foods she feels are indulgent. Patient set the following goals: - increase walking (start with 5-10 minutes after a meal) NOT MET; continue- will start 1 days a week on weekends and then increase during xmas break - more water - aim for 50 oz /day to start -NOT REVIEWED [facility] Other 11-15-2021 Evaluation note* Encounter Date Diagnosis Assessment Notes Treatment Notes Treatment Clinical Notes Sep, Hyperlipidemia (ICD-10 - E78.5) Provided her with an order to have labs drawn soon. Sep, Anxiety (ICD-10 - F41.9) She rarely takes Xanax but would like to have it available if needed. An OARRS report was reviewed, no discrepancies noted. Frequent appointments were reviewed, no discrepancies noted. I will see her back in three months. Side effects/risks/benefi ts of medication were reviewed. Sep, Weight loss (ICD-10 - R63.4) On our scale she has lost 24 pounds, on her home scale she has lost 30 pounds. She voices that she can only use the medication for seven months because of a shortage of medication. She is doing well on the medication and feels good. I encouraged her to continue with her weight loss and lifestyle changes. She is following with a heavy media operator as scheduled. Sep, Cervical pain (ICD-10 - M54.2) right side She voices that she follows with a massotherapist every four weeks. She recently slept wrong and had a flare up so she went and saw her massotherapist and is feeling better. She only uses the Gabapentin as needed. She knows how to take the medication if she needs it. She does use the Zanaflex as needed also. Provided her with the medication. Sep, Other She voices that she is going to get the COVID-19 Booster vaccine on Saturday09-22-21. [facility] Other 12-08-2012 History general Narrative - Reported* Type Description Date Medical History hypertension w/ preg last 7 wks Medical History anxiety Medical History hx left breast lump benign Medical History CT Paranasal Sinuses 12-8-12; [facility] Medical History Tonsillectomy, Dr. Arreola 201 3 Medical History Immune deficiency disorder Medical History heartburn Medical History hyperlipidemia Medical History sleep apnea Medical History Covid Surgical History left breast lump Dr. Cevallos 2008 Surgical History Tonsillectomy, Dr. Arreola 20 13 Hospitalization History hypertension Hospitalization History UC sore throat - 12/2015 [facility] Other 12-08-2012 History general Narrative - Reported* Type Description Date Medical History hypertension w/ preg last 7 wks Medical History anxiety Medical History hx left breast lump benign Medical History CT Paranasal Sinuses 10-11-12; [facility] Medical History Tonsillectomy, Dr. Arreola 201 3 Medical History Immune deficiency disorder Medical History heartburn Medical History hyperlipidemia Medical History sleep apnea Surgical History left breast lump Dr. Cevallos 2008 Surgical History Tonsillectomy, Dr. Arreola 20 13 Hospitalization History hypertension Hospitalization History UC sore throat - 12/2015 [facility] Other Evaluation + Plan note Future Appointments Appointment Date:03/24/2025 05:20:00 PM Scheduled Provider:Junior De La Fuente Location:[facility] Appointment Type: Open Diagnostic Tests Pending * PAP [id number] w/ HPV and Genotype rflx 02/15/25 [facility] Evnxnfjnoz noteNo assessment information available [facility] Work Phone: Evvqjnraqo noteNo InformationNortJames E. 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 [facility] Work Phone: Evaluation note* Diagnosis Onset Date Resolution Status Anxiety acute Elevated high sensitivity C-reactive protein acute Hemorrhoid acute Hyperglycemia acute Hyperlipidemia acute Hypertension acute Obesity acute Wellness examination acute [facility] Work Phone: Hospital course Narrative No data available for this section [facility] Hospital Discharge instructions No data available for this section [facility] Progress note No data available for this section [facility] Reason for referral (narrative)* Outpatient Procedure (Routine) - Closed Specialty Diagnoses / Procedures Referred By Contac t Referred To [facility] Diagnoses Primary hypertension Mixed hyperlipidemia Anxiety Procedures ECG COMPLETE ECG ROUTINE ECG W/LEAST 12 LDS W/I&R Maryjane Waite MD [address] [place] [address] [facility] [address] [place] [address] Referral ID Status Reason Start Date Expiration Date V isits Requested Visits Authorized [id number] Closed Auto-Generate d Referral 12/26/2022 12/26/[address] [facility] Chief Complaint and Reason for Visit Chief Complaint E78.5;Z79.899 Obesity Chief Complaint Obesity I10 Chief Complaint I10 Obesity Z79.899 E78.5 R63.5 Chief Complaint I10 Obesity Z79.899 E78.5 R63.5 e78.5 Chief Complaint Obesity See order Chief Complaint Obesity Z51.81 Chief Complaint Obesity E78.5 Z79.899 R73.09 R79.82 R63.5 review lab/med refill Reason for Visit Allergic rhinitis Anxiety Elevated high sensitivity C-reactive protein Hemorrhoid Hyperglycemia Hyperlipidemia Hypertension Obesity Other intermediate teacher (current) drug therapy Chief Complaint E78.5 Z79.899 R73.09 R79.82 R63.5 review lab/med refill Reason for Visit Allergic rhinitis Anxiety Elevated high sensitivity C-reactive protein Hemorrhoid Hyperglycemia Hyperlipidemia Hypertension Obesity Other usp (current) drug therapy Chief Complaint review lab/med refil l telephone/med refill Reason for Visit Allergic rhinitis Anxiety Elevated high sensitivity C-reactive protein Hemorrhoid Hyperglycemia Hyperlipidemia Hypertension Obesity Other usp (current) drug therapy Anxiety Obesity Chief Complaint z79.899 r73.9 e785 Chief Complaint z79.899 r73.9 e785 review labs/med refill Reason for Visit Anxiety Elevated high sensitivity C-reactive protein Hemorrhoid Hyperglycemia Hyperlipidemia Hypertension Obesity Wellness examination Chief Complaint Admit Date telephone/med refill December 07, 2024 5:02pm Reason for Visit Admit Date Anxiety December 07, 2024 5 :02pm Hemorrhoid December 07, 2024 5 :02pm Hyperlipidemia December 07, 2024 5 :02pm Hypertension December 07, 2024 5 :02pm Obesity December 07, 2024 5 :02pm Advance Directives No Advanced Directives Records Found Advance Directive Response Recorded Date/ Time Advance Directives No March 11, 2018 4:40pm Advance Directive Response Recorded Date/ Time Advance Directives No March 11, 2018 3:40pm Summary Purpose Family History No Family History Records Found Relationship Condition Age at Onset Recorded Date/T belkis family member Obesity Unknown father Unknown Heart disease Unknown Pulmonary embolism Unknown grandparent Unknown Congestive heart failure Unknown History of malignant neoplasm of prostate Unknown grandparent Carcinoma of colon Unknown Unknown Not Specified Hypertension Unknown Relationship Condition Age at Onset Recorded Date/T belkis aunt Obesity Unknown father Unknown Heart disease Unknown Pulmonary embolism Unknown grandparent Unknown Congestive heart failure Unknown History of malignant neoplasm of prostate Unknown grandparent Carcinoma of colon Unknown Unknown mother Hypertension Unknown Additional Source Comments Care Teams (unrecognized sec tion and content) Team Status: Active Member Role Status Dates Delia Deng DO Primary Care Provider Active Team Status: Inactive Member Role Status Dates Reji Alcantara MD Attending Provider Active Start: November 27, 2023 End: November 27, 2023 Team Status: Active Member Role Status Dates Delia Deng DO Primary Care Provide r, Attending Provider Active Start: November 27, 2023 Team Status: Inactive Member Role Status Dates Delia Deng DO Primary Care Provide r, Attending Provider Active Start: January 31, 2024 End: January 31, 2024 Team Status: Inactive Member Role Status Dates Delia Deng DO Primary Care Provide r, Attending Provider Active Start: February 17, 2024 End: February 17, 2024 Team Status: Active Member Role Status Dates Delia Deng DO Primary Care Provider, Attending Pro vider Active Team Status: Inactive Member Role Status Dates Delia Deng DO Primary Care Provider, Attending Pro vider Active Chinese Instructor Relationship Specialty Start Date End Date Delia Deng, DO [address] [place] [address] PCP - General [facility] Medicine 11/19/22 Delia Deng, DO [address] [place] [address] Referring Family Medicine 11/19/22 Chinese Instructor Relationship Specialty Start Date End Date Delia Deng, DO [address] [place] [address] PCP - General Family Medicine 11/19/22 Delia Deng, DO [address] [place] [address] Referring Family Medicine 11/19/22 Team Status: Inactive Member Role Status Dates Delia Deng DO Primary Care Provider Active Reji Alcantara MD Attending Provider Active Team Status: Inactive Member Role Status Dates Delia Deng DO Primary Care Provide r, Attending Provider Active Start: May 14, 2024 End: May 14, 2024 Team Status: Inactive Member Role Status Sarah Deng DO Primary Care Provide r, Attending Provider Active Start: August 26, 2024 End: August 26, 2024 Team Status: Inactive Member Role Status Sraah Deng DO Primary Care Provide r, Attending Provider Active Start: August 31, 2024 End: August 31, 2024 Team Status: Inactive Member Role Status Sarah Deng DO Primary Care Provide r, Attending Provider Active Start: December 07, 2024 End: December 07, 2024 Goals (unrecognized section and content) Goals may be documented in a n alternate sectionNo InformationNo InformationNo InformationNo InformationNo InformationNo InformationNo InformationNo InformationNo InformationNo InformationNo InformationNo InformationNo InformationNo InformationNo InformationNo InformationNo InformationNo InformationNo InformationGoals may be documented in an alternate sectionNo InformationNo InformationGoals may be documented in an alternate sectionGoals may be documented in an alternate sectionNo InformationNo InformationNo InformationNo InformationNo InformationGoals may be documented in an alternate sectionNo InformationNo InformationNo InformationNo InformationNo InformationNo InformationGoals may be documented in an alternate sectionNo InformationNo InformationNo InformationGoals may be documented in an alternate sectionGoals may be documented in an alternate sectionGoals may be documented in an alternate sectionGoals may be documented in an alternate sectionGoals may be documented in an alternate sectionGoals may be documented in an alternate section No data available for this section REASON FOR VISIT (unrecogniz ed section and content) Reason Comments External Referrals/resources Reason Comments New Cardiac Patient INFORMATION SOURCE (unrecogn ized section and content) DATE CREATED AUTHOR 11/03/2022 [facility] DATE CREATED AUTHOR AUTHOR'S ORGANIZ ATION 01/26/2023 [facility] DATE CREATED AUTHOR AUTHOR'S ORGANIZ ATION 04/16/2024 [facility] EPIC DATE CREATED AUTHOR AUTHOR'S ORGANIZ ATION 08/27/2024 [facility] DATE CREATED AUTHOR AUTHOR'S ORGANIZ ATION 03/31/2025 [facility] Source Comments (unrecognize d section and content) In the event this informatio n is protected by the Federal Confidentiality of Alcohol and Drug Abuse Patient Records regulations: The Federal rules restrict any use of the information to criminally investigate or prosecute any alcohol or drug abuse patient.[facility] the event this information is protected by the Federal Confidentiality of Alcohol and Drug Abuse Patient Records regulations: The Federal rules restrict any use of the information to criminally investigate or prosecute any alcohol or drug abuse patient.[facility] FOR RECORDS PERTAINING TO PATIENTS WHO ARE OR HAVE BEEN ENROLLED IN A CHEMICAL DEPENDENCY/SUBSTANCEABUSE PROGRAM, SOME INFORMATION MAY BE OMITTED. This clinical summary was aggregated from multiple sources. Caution should be exercised in using it in the provision of clinical care. This summary normalizes information from multiple sources, and as a consequence, information in this document may materially change the coding, format and clinical context of patient data. In addition, data may be omitted in some cases. CLINICAL DECISIONS SHOULD BE BASED ON THE PRIMARY CLINICAL RECORDS. [facility] [employer] [facility]. provides no warranty or guarantee of the accuracy or completeness of information in this document.
--- NOTE | 2025-04-13 13:25 | MM_ITS ---
Patient Name: MEGGAN GUERRA MR#: [id number] : 1980 Exam Date: 04/13/2025 Ordering Doctor: JUNIOR ZAMBRANO . RADIOLOGY REPORT PROCEDURE: MM TOMOSYNTHESIS SCREENING BI COMPARISON: MM TOMOSYNTHESIS SCREENING BI, 06/06/2023. MG MAMM SCREEN 3D LESLIE CAD, 05/25/2022. MG MAMM SCREEN LESLIE W CAD, 11/01/2020. MAMMO LESLIE SCREEN, 06/18/2007. INDICATIONS: Screening Calculator Name NCI Breast Cancer Risk Assessment Tool 5 Year Breast Cancer Risk 1.50% Lifetime Breast Cancer Risk 14.10% Personal Breast Cancer No Personal Ovarian Cancer No Treatments None Family Cancers Cousin-paternal with breast cancer at age ~50; Cousin-paternal with breast cancer at age ~52; Aunt-maternal with breast cancer at age ~53; Grandmother-paternal with colon cancer at age ~65; Grandfather-paternal with prostate cancer at age ~70. LOCATION: [facility] BREAST COMPOSITION: The breasts are heterogeneously dense,which may obscure small masses. FINDINGS: DIAGNOSTIC CATEGORY 1--NEGATIVE. RIGHT BREAST: No significant suspicious finding. LEFT BREAST: No significant suspicious finding. RECOMMENDATIONS: ROUTINE MAMMOGRAM AND CLINICAL EVALUATION IN 12 MONTHS. PLEASE NOTE: A NORMAL MAMMOGRAM DOES NOT EXCLUDE THE POSSIBILITY OF BREAST CANCER. A CLINICALLY SUSPICIOUS PALPABLE LUMP SHOULD BE BIOPSIED. Dictated by: Dennys Sneed DO on 04/13/2025 at 15:41 Approved by: Dennys Sneed DO on 04/13/2025 at 15:51
== END 2025-04-13 12:45 | disposition home or self-care (01) ==
LOC: MAMMO 12:44
PROVIDERS: PCP Family Medicine; Visit Provider Nurse Practitioner
DX: Z01.419 Encounter for gynecological examination (general) (routine) without abnormal findings (principal); Z12.31 Encounter for screening mammogram for malignant neoplasm of breast; Z80.3 Family history of malignant neoplasm of breast; Z80.0 Family history of malignant neoplasm of digestive organs; Z80.42 Family history of malignant neoplasm of prostate
CPT/HCPCS: 77063; 77067